=== PATIENT | male | born 1975 | race American Indian/Alaskan Native ===

== ENCOUNTER 2019-07-31 07:33 | Emergency (ER) | payer MEDICARE ==
[2019-07-31] MEDS ORDERED: ASPIRIN 325 MG TAB PO ONE (08:01)
[2019-07-31 08:32] LABS: Basophils % (Auto) 0.9 % (0.0-1.8); Eosinophils # (Auto) 0.1 K/mm3 (0.0-0.4); Eosinophils % (Auto) 2.2 % (0.0-4.3); Hematocrit 40.1 % (35.5-45.6); Hemoglobin 13.5 gm/dl (11.8-15.2); Lymphocytes # (Auto) 1.2 K/mm3 (1.2-5.4); Lymphocytes % (Auto) 26.8 % (13.4-35.0); Mean Corpuscular HGB Conc 34 % (32-34); Mean Corpuscular Volume 95 fl (84-94); Monocytes # (Auto) 0.4 K/mm3 (0.0-0.8); Platelet Count 163 K/mm3 (140-440); Red Blood Count 4.24 M/mm3 (3.65-5.03); Red Cell Distribution Width 15.2 % (13.2-15.2)
[2019-07-31 08:42] LABS: INR 1.12 (0.87-1.13)
[2019-07-31 08:43] LABS: Partial Thromboplastin Time 36.3 Sec. (24.2-36.6)
--- NOTE | 2019-07-31 08:44 | XRay Report ---
CHEST 1 VIEW INDICATION: Chest Pain. COMPARISON: None FINDINGS: Support devices: None. Heart: Moderate cardiomegaly. Lungs/Pleura: Mild central pulmonary venous congestion. The lungs are clear otherwise. No infiltrate, pneumothorax or pleural fluid is appreciated. Additional findings: None. IMPRESSION: Moderate cardiomegaly. Lungs clear. Signer Name: Chapincito Cortez Jr, MD Signed: 07/31/2019 8:40 AM Workstation Name: [id number]
[2019-07-31 08:52] LABS: BUN/Creatinine Ratio 14; Blood Urea Nitrogen 18 mg/dL (9-20); Calcium 8.9 mg/dL (8.4-10.2); Hemolysis Index 14
[2019-07-31] MEDS ORDERED: FUROSEMIDE 40 MG/4 ML INJ IV ONE (08:55)
--- NOTE | 2019-07-31 09:20 | Emergency Department Report ---
<MANNY HAYES - Last Filed: 08/03/19 17:41> ED Shortness of Breath HPI - General Chief Complaint: Dyspnea/Respdistress Stated Complaint: SOB/CHF Time Seen by Provider: 07/31/19 08:41 Source: patient Mode of arrival: Ambulatory Limitations: No Limitations - History of Present Illness Initial Comments: Patient is a 44-year-old male who presents emergency room with complaints of shortness of breath that began 2 days ago. Patient states it is worse with lying flat and worse with exertion and that he is having to sit up in a recliner to sleep. Patient states that he just traveled here from [place] and forgot to pack his medications so he has not had any of his medications in 2 days. he states that he has a past medical is CHF and states that he believes his EF is less than 15%. He states that 3 weeks ago he had a [place] in [place] and had 2 stents placed. He denies any leg swelling, chest pain, fever, any other sympto ms. Patient has a past medical history of hypertension he has an allergy to TL inhibitor. Patient is a smoker, drinker, denies drug use. - Related Data Allergies Allergy/AdvReac Type Severity Reaction Status Date / Time TL Inhibitors AdvReac Angioedema Verified 07/31/19 07:48 ED Review of Systems Comment: All other systems reviewed and negative ED Past Medical Hx - Past Medical History Hx Hypertension: Yes Hx Congestive Heart Failure: Yes - Surgical History Additional Surgical History: tonsilectomy - Social History Smoking Status: Current Every Day Smoker Substance Use Type: Alcohol ED Physical Exam - General Limitations: No Limitations General appearance: alert, in no apparent distress - Head Head exam: Present: atraumatic, normocephalic - Eye Eye exam: Present: normal appearance - ENT ENT exam: Present: mucous membranes moist - Respiratory Respiratory exam: Present: rales (mild bases). Absent: respiratory distress, wheezes, rhonchi, stridor, chest wall tenderness, accessory muscle use, decreased breath sounds, prolonged expiratory - Cardiovascular Cardiovascular Exam: Present: regular rate, normal rhythm, normal heart sounds. Absent: systolic murmur, diastolic murmur, rubs, gallop - Extremities Exam Extremities exam: Absent: pedal edema - Neurological Exam Neurological exam: Present: alert, oriented X3 - Psychiatric Psychiatric exam: Present: normal affect, normal mood - Skin Skin exam: Present: warm, dry, intact ED Medical Decision Making - Lab Data Result diagrams: 07/31/19 08:16 07/31/19 08:16 Lab Results 07/31/19 07/31/19 07/31/19 Range/Units 08:06 08:16 08:16 WBC 4.5 (4.5-11.0) K/mm3 RBC 4.24 (3.65-5.03) M/mm3 Hgb 13.5 (11.8-15.2) gm/dl Hct 40.1 (35.5-45.6) % MCV 95 H (84-94) fl MCH 32 (28-32) pg MCHC 34 (32-34) % RDW 15.2 (13.2-15.2) % Plt Count 163 (140-440) K/mm3 Lymph % (Auto) 26.8 (13.4-35.0) % [place] % (Auto) 8.0 H (0.0-7.3) % Eos % (Auto) 2.2 (0.0-4.3) % Baso % (Auto) 0.9 (0.0-1.8) % Lymph # 1.2 (1.2-5.4) K/mm3 [place] # 0.4 (0.0-0.8) K/mm3 Eos # 0.1 (0.0-0.4) K/mm3 Baso # 0.0 (0.0-0.1) K/mm3 Seg Neutrophils % 62.1 (40.0-70.0) % Seg Neutrophils # 2.8 (1.8-7.7) K/mm3 PT (12.2-14.9) Sec. INR (0.87-1.13) APTT (24.2-36.6) Sec. D-Dimer 439.50 H (0-234) ng/mlDDU Sodium 138 (137-145) mmol/L Potassium 4.6 (3.6-5.0) mmol/L Chloride 108.2 H (98-107) mmol/L Carbon Dioxide 20 L (22-30) mmol/L Anion Gap 14 mmol/L BUN 18 (9-20) mg/dL Creatinine 1.3 (0.8-1.5) mg/dL Estimated GFR > 60 ml/min BUN/Creatinine Ratio 14 % Glucose 108 H (75-100) mg/dL Calcium 8.9 (8.4-10.2) mg/dL Troponin T < 0.010 (0.00-0.029) ng/mL NT-Pro-B Natriuret Pep (0-450) pg/mL 07/31/19 07/31/19 07/31/19 Range/Units 08:16 08:16 11:45 WBC (4.5-11.0) K/mm3 RBC (3.65-5.03) M/mm3 Hgb (11.8-15.2) gm/dl Hct (35.5-45.6) % MCV (84-94) fl MCH (28-32) pg MCHC (32-34) % RDW (13.2-15.2) % Plt Count (140-440) K/mm3 Lymph % (Auto) (13.4-35.0) % [place] % (Auto) (0.0-7.3) % Eos % (Auto) (0.0-4.3) % Baso % (Auto) (0.0-1.8) % Lymph # (1.2-5.4) K/mm3 [place] # (0.0-0.8) K/mm3 Eos # (0.0-0.4) K/mm3 Baso # (0.0-0.1) K/mm3 Seg Neutrophils % (40.0-70.0) % Seg Neutrophils # (1.8-7.7) K/mm3 PT 14.3 (12.2-14.9) Sec. INR 1.12 (0.87-1.13) APTT 36.3 (24.2-36.6) Sec. D-Dimer (0-234) ng/mlDDU Sodium (137-145) mmol/L Potassium (3.6-5.0) mmol/L Chloride (98-107) mmol/L Carbon Dioxide (22-30) mmol/L Anion Gap mmol/L BUN (9-20) mg/dL Creatinine (0.8-1.5) mg/dL Estimated GFR ml/min BUN/Creatinine Ratio % Glucose (75-100) mg/dL Calcium (8.4-10.2) mg/dL Troponin T < 0.010 (0.00-0.029) ng/mL NT-Pro-B Natriuret Pep 4035 H (0-450) pg/mL - EKG Data EKG shows normal: sinus rhythm Rate: normal - EKG Data 07/31/19 09:48 PVCs LAD LVH no STEMI per Dr. Figueroa - Radiology Data Radiology results: report reviewed CHEST 1 VIEW INDICATION: Chest Pain. COMPARISON: None FINDINGS: Support devices: None. Heart: Moderate cardiomegaly. Lungs/Pleura: Mild central pulmonary venous congestion. The lungs are clear otherwise. No infiltrate, pneumothorax or pleural fluid is appreciated. Additional findings: None. IMPRESSION: Moderate cardiomegaly. Lungs clear. Signer Name: Chapincito Cortez Jr, MD Signed: 07/31/2019 8:40 AM Workstation Name: [id number] Transcribed By: TTR Dictated By: CHAPINCITO CORTEZ JR, MD Electronically Authenticated By: CHAPINCITO CORTEZ JR, MD Signed Date/Time: 07/31/19839 DD/ 8 TD/TT: CTA CHEST WITH CONTRAST INDICATION : SOB, elevated d-dimer. TECHNIQUE: Axial imaging performed through the chest, with contrast bolus timing set to maximize opacification of the pulmonary arteries. Sagittal and coronal reformatted images. 3-plane MIP reformatted images were obtained. All CT scans at this location are performed using CT dose reduction for ALARA by means of automated exposure control. 100 mL of intravenous contrast administered. COMPARISON: None FINDINGS: Bolus: Contrast bolus timing is adequate. PTE: No filling defect is present to suggest PTE. Mediastinum: Moderate to severe cardiomegaly. No pericardial effusion. The aorta, thyroid gland, tracheobronchial tree and esophagus are unremarkable. No pathologic mediastinal adenopathy. Lungs: The lungs are clear. No significant parenchymal disease. No pleural effusion or pneumothorax. Bones: No significant abnormality. Upper abdomen: Limited imaging of the upper abdomen shows nothing acute. IMPRESSION: No pulmonary embolus is identified. Moderate to severe cardiomegaly. Lungs clear. Signer Name: Chapincito Cortez Jr, MD Signed: 07/31/2019 1:57 PM Workstation Name: [id number] Transcribed By: TTR Dictated By: CHAPINCITO CORTEZ JR, MD Electronically Authenticated By: CHAPINCITO CORTEZ JR, MD Signed Date/Time: 07/31/19 1416 DD/ 1417 TD/TT: - Medical Decision Making Patient is a 44-year-old male who presents emergency room with complaints of shortness of breath that began 2 days ago. Patient states it is worse with lying flat and worse with exertion and that he is having to sit up in a recliner to sleep. Patient states that he just traveled here from [place] and forgot to pack his medications so he has not had any of his medications in 2 days. he states that he has a past medical is CHF and states that he believes his EF is less than 15%. He states that 3 weeks ago he had a [place] in [place] and had 2 stents placed. He denies any leg swelling, chest pain, fever, any other symptoms. Patient has a past medical history of hypertension he has an allergy to TL inhibitor. Patient is a smoker, drinker, denies drug use. initial vitals with tachypnea and mildly elevated BP. EKG with PVCs, LAD, LVH, no STEMI per Dr. Figueroa. on exam: mild rales at the bilateral bases. on labs d-dimer is elevated, BNP is 4035. pt given lasix and breath sounds improved, pt states he is feeling much better. CXR: Mild central pulmonary venous congestion. The lungs are clear otherwise. No infiltrate, pneumothorax or pleural fluid is appreciated. CTA chest: No pulmonary embolus is identified. Moderate to severe cardiomegaly. Lungs clear. pt states that someone is bringing his medication from [place] today so he does not need refills of his meds. discussed case with Dr. Figueroa who states that pt can be discharged home and follow up with his PCP. advised pt to Please take your medications as your prescribed by your primary care doctor. eat a low sodium diet, watch your fluid intake. please follow-up with your primary care doctor and your butcherette in the next 2-3 days. Return to the emergency room immediately for any new or worsening symptoms. - Differential Diagnosis CHF, PE, asthma, COPD, ACS, PTX ED Disposition Clinical Impression: CHF exacerbation Qualifiers: Heart failure type: unspecified Qualified Code(s): I50.9 - Heart failure, unsp ecified Disposition: - TO HOME OR SELFCARE Is pt being admited?: No Does the pt Need Aspirin: No Condition: Stable Instructions: Heart Failure (ED) Additional Instructions: Please take your medications as your prescribed by her primary care doctor. eat a low sodium diet, watch your fluid intake. please follow-up with your primary care doctor and your butcherette in the next 2-3 days. Return to the emergency room immediately for any new or worsening symptoms. Referrals: ALMA SORIA MD [Primary Care Provider] - 2-3 Days Time of Disposition: 15:52 Print Language: ARABIC <MARIAA FIGUEROA P - Last Filed: 08/15/19 03:06> ED Review of Systems ROS: Stated complaint: SOB/CHF Other details as noted in HPI ED Course Vital Signs 07/31/19 07/31/19 07/31/19 07:59 08:30 08:38 Temperature 98.1 F Pulse Rate 91 H 92 H Respiratory 28 H 24 Rate Blood Pressure 137/102 Blood Pressure [Left] O2 Sat by Pulse 97 98 Oximetry 07/31/19 07/31/19 07/31/19 08:41 08:46 09:00 Temperature Pulse Rate 86 88 86 Respiratory 28 H 41 H 19 Rate Blood Pressure 139/97 139/97 Blood Pressure 139/87 [Left] O2 Sat by Pulse 100 98 99 Oximetry 07/31/19 07/31/19 07/31/19 09:16 09:30 09:48 Temperature Pulse Rate 84 85 92 H Respiratory 26 H 36 H 22 Rate Blood Pressure 134/105 142/103 142/103 Blood Pressure [Left] O2 Sat by Pulse 98 95 97 Oximetry 07/31/19 07/31/19 07/31/19 10:00 10:16 10:30 Temperature Pulse Rate 84 73 72 Respiratory 37 H 23 28 H Rate Blood Pressure 158/109 142/103 141/99 Blood Pressure [Left] O2 Sat by Pulse 98 97 88 Oximetry 07/31/19 07/31/19 07/31/19 10:46 11:00 11:16 Temperature Pulse Rate 73 82 75 Respiratory 17 26 H 14 Rate Blood Pressure 141/99 133/100 133/100 Blood Pressure [Left] O2 Sat by Pulse 94 93 97 Oximetry 07/31/19 07/31/19 07/31/19 11:30 11:46 12:00 Temperature Pulse Rate 77 81 78 Respiratory 26 H 24 19 Rate Blood Pressure 129/91 129/91 138/108 Blood Pressure [Left] O2 Sat by Pulse 95 98 96 Oximetry 07/31/19 07/31/19 07/31/19 12:16 12:30 12:46 Temperature Pulse Rate 70 84 70 Respiratory 35 H 22 21 Rate Blood Pressure 138/108 130/95 138/108 Blood Pressure [Left] O2 Sat by Pulse 97 95 98 Oximetry 07/31/19 07/31/19 07/31/19 13:00 13:22 13:30 Temperature Pulse Rate 69 82 78 Respiratory 20 23 25 H Rate Blood Pressure 130/95 130/95 140/106 Blood Pressure [Left] O2 Sat by Pulse 91 98 98 Oximetry 07/31/19 07/31/19 07/31/19 13:46 14:00 14:16 Temperature Pulse Rate 72 75 77 Respiratory 21 16 24 Rate Blood Pressure 130/95 142/106 142/106 Blood Pressure [Left] O2 Sat by Pulse 99 95 98 Oximetry 07/31/19 07/31/19 07/31/19 14:30 14:46 15:00 Temperature Pulse Rate 85 78 80 Respiratory 28 H 15 26 H Rate Blood Pressure 145/107 142/106 144/105 Blood Pressure [Left] O2 Sat by Pulse 98 97 92 Oximetry 07/31/19 07/31/19 07/31/19 15:16 15:30 15:46 Temperature Pulse Rate 69 77 70 Respiratory 24 24 19 Rate Blood Pressure 145/107 134/96 134/96 Blood Pressure [Left] O2 Sat by Pulse 100 92 98 Oximetry 07/31/19 07/31/19 16:00 16:16 Temperature Pulse Rate 84 74 Respiratory 20 20 Rate Blood Pressure 143/107 143/107 Blood Pressure [Left] O2 Sat by Pulse 97 95 Oximetry ED Medical Decision Making - Lab Data Result diagrams: 07/31/19 08:16 07/31/19 08:16 - Medical Decision Making Attestation: Available for consultation Critical care attestation.: If time is entered above; I have spent that time in minutes in the direct care of this critically ill patient, excluding procedure time. ED Disposition Is pt being admited?: No
[2019-07-31] MEDS ORDERED: ONDANSETRON 4 MG/2 ML INJ IV ONE (10:34)
[2019-07-31] MEDS ORDERED: ONDANSETRON 4 MG/2 ML INJ ONE (12:43)
--- NOTE | 2019-07-31 14:02 | Cat Scan Report ---
CTA CHEST WITH CONTRAST INDICATION : SOB, elevated d-dimer. TECHNIQUE: Axial imaging performed through the chest, with contrast bolus timing set to maximize opa cification of the pulmonary arteries. Sagittal and coronal reformatted images. 3-plane MIP reformatte d images were obtained. All CT scans at this location are performed using CT dose reduction for ALAR A by means of automated exposure control. 100 mL of intravenous contrast administered. COMPARISON: None FINDINGS: Bolus: Contrast bolus timing is adequate. PTE: No filling defect is present to suggest PTE. Mediastinum: Moderate to severe cardiomegaly. No pericardial effusion. The aorta, thyroid gland, tra cheobronchial tree and esophagus are unremarkable. No pathologic mediastinal adenopathy. Lungs: The lungs are clear. No significant parenchymal disease. No pleural effusion or pneumothorax. Bones: No significant abnormality. Upper abdomen: Limited imaging of the upper abdomen shows nothing acute. IMPRESSION: No pulmonary embolus is identified. Moderate to severe cardiomegaly. Lungs clear. Signer Name: Chapincito Cortez Jr, MD Signed: 07/31/2019 1:57 PM Workstation Name: [id number]
[2019-07-31 16:25] VITALS: BP 143/107
== END 2019-07-31 16:25 | disposition home or self-care (01) ==
LOC: ED 07:33
DX: I11.0 Hypertensive heart disease with heart failure (principal); I50.9 Heart failure, unspecified; F17.200 Nicotine dependence, unspecified, uncomplicated; Z90.89 Acquired absence of other organs
CPT/HCPCS: 36415; 71045; 71275; 80048; 83880; 84484; 85025; 85379; 85610; 85730; 93005; 93010; 96374; 96375; 99285; J1940; J2405; Q9967

== ENCOUNTER 2019-08-09 07:07 | Emergency (ER) | payer MEDICARE ==
[2019-08-09 08:21] LABS: Basophils # (Auto) 0.1 K/mm3 (0.0-0.1); Basophils % (Auto) 1.3 % (0.0-1.8); Eosinophils # (Auto) 0.1 K/mm3 (0.0-0.4); Eosinophils % (Auto) 1.8 % (0.0-4.3); Hematocrit 41.6 % (35.5-45.6); Hemoglobin 14.2 gm/dl (11.8-15.2); Lymphocytes # (Auto) 0.9 K/mm3 (1.2-5.4); Lymphocytes % (Auto) 19.4 % (13.4-35.0); Mean Corpuscular HGB Conc 34 % (32-34); Mean Corpuscular Volume 93 fl (84-94); Monocytes # (Auto) 0.3 K/mm3 (0.0-0.8); Monocytes % (Auto) 7.8 % (0.0-7.3); Platelet Count 175 K/mm3 (140-440); Red Blood Count 4.49 M/mm3 (3.65-5.03); Red Cell Distribution Width 15.1 % (13.2-15.2)
--- NOTE | 2019-08-09 08:25 | Emergency Department Report ---
ED General Adult HPI - General Chief complaint: Dyspnea/Respdistress Stated complaint: SOB/COLTON Time Seen by Provider: 08/09/19 08:10 Source: patient Mode of arrival: Wheelchair Limitations: No Limitations - History of Present Illness Initial comments: 44 year old male with a PMH of CHF, HIV, and HTN presents to Ed cc of sob that started at 3am this morning while at home pt stated he had a little bit of intermittent and dry nonproductive cough and but does not exhibit any chest pain Pt states he takes his medications daily and is compliant on his medications. He denies fever,chestpain,difficulty breathing, hx of asthma or COPD he states that he just recently moved here from [place] and is currently looking for primary care physician - Related Data Previous Rx's Medication Instructions Recorded Last Taken Type ALBUTEROL Inhaler (OR & NICU) 2 puff IH QID PRN #8.5 gram 08/09/19 Unknown Rx [ProAir HFA Inhaler] Allergies Allergy/AdvReac Type Severity Reaction Status Date / Time TL Inhibitors AdvReac Angioedema Verified 07/31/19 07:48 ED Review of Systems ROS: Stated complaint: SOB/COLTON Other details as noted in HPI Comment: All other systems reviewed and negative ED Past Medical Hx - Past Medical History Previous Medical History?: Yes Hx Hypertension: Yes Hx Congestive Heart Failure: Yes Hx HIV: Yes - Surgical History Past Surgical History?: Yes Additional Surgical History: tonsilectomy - Social History Smoking Status: Current Every Day Smoker Substance Use Type: None - Medications Home Medications: Home Medications Medication Instructions Recorded Confirmed Last Taken Type ALBUTEROL Inhaler (OR & NICU) 2 puff IH QID PRN #8.5 gram 08/09/19 Unknown Rx [ProAir HFA Inhaler] ED Physical Exam - General Limitations: No Limitations General appearance: alert, in no apparent distress - Head Head exam: Present: atraumatic, normocephalic - Eye Eye exam: Present: normal appearance - ENT ENT exam: Present: mucous membranes moist - Neck Neck exam: Present: normal inspection - Respiratory Respiratory exam: Present: normal lung sounds bilaterally. Absent: respiratory distress - Cardiovascular Cardiovascular Exam: Present: regular rate, normal rhythm. Absent: systolic murmur, diastolic murmur, rubs, gallop - GI/Abdominal GI/Abdominal exam: Present: soft, normal bowel sounds - Rectal Rectal exam: Present: deferred - Extremities Exam Extremities exam: Present: normal inspection - Back Exam Back exam: Present: normal inspection - Neurological Exam Neurological exam: Present: alert, oriented X3 - Psychiatric Psychiatric exam: Present: normal affect, normal mood - Skin Skin exam: Present: warm, dry, intact, normal color. Absent: rash ED Course Vital Signs 08/09/19 08/09/19 08/09/19 07:29 08:06 10:22 Pulse Rate 84 78 74 Respiratory 20 18 20 Rate Blood Pressure 138/99 Blood Pressure 133/99 134/86 [Left] O2 Sat by Pulse 98 100 98 Oximetry - Reevaluation(s) Reevaluation #1: 08/09/19 08:45 Pt is satting at 98 percent Room air, stable no resopiratory distress Resp team called to admimnister Duoned labs and Xray pending ED Medical Decision Making - Lab Data Result diagrams: 08/09/19 08:06 08/09/19 08:06 Laboratory Last Values WBC 4.4 K/mm3 (4.5-11.0) L 08/09/19 08:06 RBC 4.49 M/mm3 (3.65-5.03) 08/09/19 08:06 Hgb 14.2 gm/dl (11.8-15.2) 08/09/19 08:06 Hct 41.6 % (35.5-45.6) 08/09/19 08:06 MCV 93 fl (84-94) 08/09/19 08:06 MCH 32 pg (28-32) 08/09/19 08:06 MCHC 34 % (32-34) 08/09/19 08:06 RDW 15.1 % (13.2-15.2) 08/09/19 08:06 Plt Count 175 K/mm3 (140-440) 08/09/19 08:06 Lymph % (Auto) 19.4 % (13.4-35.0) 08/09/19 08:06 [place] % (Auto) 7.8 % (0.0-7.3) H 08/09/19 08:06 Eos % (Auto) 1.8 % (0.0-4.3) 08/09/19 08:06 Baso % (Auto) 1.3 % (0.0-1.8) 08/09/19 08:06 Lymph # 0.9 K/mm3 (1.2-5.4) L 08/09/19 08:06 [place] # 0.3 K/mm3 (0.0-0.8) 08/09/19 08:06 Eos # 0.1 K/mm3 (0.0-0.4) 08/09/19 08:06 Baso # 0.1 K/mm3 (0.0-0.1) 08/09/19 08:06 Seg Neutrophils % 69.7 % (40.0-70.0) 08/09/19 08:06 Seg Neutrophils # 3.1 K/mm3 (1.8-7.7) 08/09/19 08:06 PT 15.3 Sec. (12.2-14.9) H 08/09/19 08:06 INR 1.22 (0.87-1.13) H 08/09/19 08:06 APTT 38.3 Sec. (24.2-36.6) H 08/09/19 08:06 D-Dimer 140.91 ng/mlDDU (0-234) 08/09/19 08:06 Sodium 138 mmol/L (137-145) 08/09/19 08:06 Potassium 3.7 mmol/L (3.6-5.0) 08/09/19 08:06 Chloride 102.1 mmol/L (98-107) 08/09/19 08:06 Carbon Dioxide 19 mmol/L (22-30) L 08/09/19 08:06 Anion Gap 21 mmol/L 08/09/19 08:06 BUN 19 mg/dL (9-20) 08/09/19 08:06 Creatinine 1.1 mg/dL (0.8-1.5) 08/09/19 08:06 Estimated GFR > 60 ml/min 08/09/19 08:06 BUN/Creatinine Ratio 17 % 08/09/19 08:06 Glucose 101 mg/dL (75-100) H 08/09/19 08:06 Calcium 8.8 mg/dL (8.4-10.2) 08/09/19 08:06 Total Bilirubin 0.90 mg/dL (0.1-1.2) 08/09/19 08:06 AST 26 units/L (5-40) 08/09/19 08:06 ALT 17 units/L (7-56) 08/09/19 08:06 Alkaline Phosphatase 75 units/L (35-129) 08/09/19 08:06 Troponin T < 0.010 ng/mL (0.00-0.029) 08/09/19 08:06 Total Protein 8.4 g/dL (6.3-8.2) H 08/09/19 08:06 Albumin 4.3 g/dL (3.9-5) 08/09/19 08:06 Albumin/Globulin Ratio 1.0 % 08/09/19 08:06 - EKG Data EKG shows normal: sinus rhythm Rate: normal - EKG Data Interpretation: other (ectopic temperature rhythm, borderline prolonged ND interval from referral list show enlargement) - Radiology Data Radiology results: report reviewed, image reviewed Fluoro Time In Minutes: CHEST 2 VIEWS INDICATION / CLINICAL INFORMATION: Shortness of breath. COMPARISON: Chest x-ray and chest CT on 07/31/2019. F INDINGS: SUPPORT DEVICES: None. HEART / MEDIASTINUM: Stable moderate cardiomegaly. LUNGS / PLEURA: No significant pulmonary or pleural abnormality. No pneumothorax. ADDITIONAL FINDINGS: No significant additional findings. IMPRESSION: 1. No acute findings. Signer Name: Adalberto Avila MD Signed: 019 8:40 AM Workstation Name: [id number] Transcribed By: MELISSA Dictated By: Adalberto Avila MD Electronically Authenticated By: Adalberto Avila MD Signed Date/Time: 08/09/19 0840 - Medical Decision Making 44-year-old male presents with shortness of breat most likely secondary to anxiety panic attack. All labs are within normal limits, chest x-ray shows no acute findings. D-dimer was negative. Coags were slightly elevated due to patient taken blood nerves. 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 Referrals were given to patient. Patient is in no respiratory distress at this time. Patient understands all instructions and will follow up Critical care attestation.: If time is entered above; I have spent that time in minutes in the direct care of this critically ill patient, excluding procedure time. ED Disposition Clinical Impression: SOB (shortness of breath) Disposition: DC-01 TO HOME OR SELFCARE Is pt being admited?: No Does the pt Need Aspirin: No Condition: Stable Instructions: Dyspnea (ED) Additional Instructions: Please follow up with your pcp as well as cardiology Continue to take medication as prescribed. Return to Ed if any worsening symptoms Prescriptions: ALBUTEROL Inhaler (OR & NICU) [ProAir HFA Inhaler] 2 puff IH QID PRN #8.5 gram PRN Reason: Shortness Of Breath Referrals: [facility] [Provider Group] - 3-5 Days ZEUS VEGA MD [Staff Physician] - 3-5 Days [facility] [Outside] - 3-5 Days [facility] [Outside] - 3-5 Days Forms: Accompanied Note, Work/School Release Form(ED) Time of Disposition: 09:43
[2019-08-09] MEDS ORDERED: IPRATROPIUM/ALBUTEROL SULFATE 3 ML AMPUL.NEB IH ONE (08:32)
[2019-08-09] MEDS ORDERED: guaiFENesin 100 MG/5 ML ORAL LIQD PO ONE (08:32)
[2019-08-09 08:45] LABS: Alanine Aminotransferase 17 units/L (7-56); Albumin 4.3 g/dL (3.9-5); BUN/Creatinine Ratio 17; Blood Urea Nitrogen 19 mg/dL (9-20); Calcium 8.8 mg/dL (8.4-10.2); Hemolysis Index 8
--- NOTE | 2019-08-09 08:45 | XRay Report ---
CHEST 2 VIEWS INDICATION / CLINICAL INFORMATION: Shortness of breath. COMPARISON: Chest x-ray and chest CT on 07/31/2019. FINDINGS: SUPPORT DEVICES: None. HEART / MEDIASTINUM: Stable moderate cardiomegaly. LUNGS / PLEURA: No significant pulmonary or pleural abnormality. No pneumothorax. ADDITIONAL FINDINGS: No significant additional findings. IMPRESSION: 1. No acute findings. Signer Name: Adalberto Avila MD Signed: 08/09/2019 8:40 AM Workstation Name: [id number]
[2019-08-09 09:18] LABS: INR 1.22 (0.87-1.13)
[2019-08-09 09:19] LABS: Partial Thromboplastin Time 38.3 Sec. (24.2-36.6)
[2019-08-09 10:44] VITALS: BP 134/86
== END 2019-08-09 10:39 | disposition home or self-care (01) ==
LOC: ED 07:07
DX: R06.02 Shortness of breath (principal); I11.0 Hypertensive heart disease with heart failure; I50.9 Heart failure, unspecified; F17.200 Nicotine dependence, unspecified, uncomplicated; Z21 Asymptomatic human immunodeficiency virus [HIV] infection status; Z88.8 Allergy status to other drugs, medicaments and biological substances; Z90.89 Acquired absence of other organs; Z79.899 Other long term (current) drug therapy
CPT/HCPCS: 36415; 71046; 80053; 84484; 85025; 85379; 85610; 85730; 93005; 93010; 99285

== ENCOUNTER 2019-09-04 05:49 | Observation (INO) | payer MEDICARE ==
[2019-09-04] MEDS ORDERED: ASPIRIN 325 MG TAB PO ONE (06:03)
[2019-09-04] MEDS ORDERED: ACETAMINOPHEN 325 MG TAB PO ONE (06:21)
[2019-09-04] MEDS ORDERED: FAMOTIDINE 20 MG/2 ML INJ IV ONE (06:21)
[2019-09-04] MEDS ORDERED: NITROGLYCERIN 0.4 MG TAB SUBL SL PRN (06:21)
[2019-09-04] MEDS ORDERED: ALBUTEROL 2.5 MG/3 ML NEBU IH ONE ×2 (06:24→08:26)
--- NOTE | 2019-09-04 06:25 | Emergency Department Report ---
ED General Adult HPI - General Chief complaint: Chest Pain Stated complaint: CP/COLTON Time Seen by Provider: 09/04/19 06:07 Source: patient, EMS ( EMS documentation not available at time of chart dictation ), RN notes reviewed, old records reviewed Mode of arrival: Stretcher Limitations: No Limitations - History of Present Illness Initial comments: The patient is a 44-year-old male. The patient does not known to this provider previously. His past medical history includes HIV, does not know CD4 count or viral load. Not currently on antiviral therapy. He reports that he also has a history of heart disease with stents. He reports that he had one or 2 stents placed 6 weeks ago at [facility]. He does not know the nature of his stents does not have his card for stents. He reports that he does not take aspirin or Plavix. He reports that he is taking brilinta He may also have a history of congestive heart failure but he does not know his ejection fraction. He smokes tobacco and occasionally marijuana. 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 The patient presents to the ER with a complaint of cough, shortness of breath, chest wall tightness, and a feeling "like my lungs are going to explode." The symptoms started at 11:00 last night. It is now 6:45 in the morning. Chest wall pain is constant since 11:00 and does not radiate to the back, arms or neck. There is no vomiting or diaphoresis. The patient endorses shortness of breath. He endorses orthopnea. He denies leg pain and leg swelling. He endorses a new [address] trip on a bus to [place]. This was in the past week and a half. This is the patient's third visit to this department in the past month and a half. Previously while here, had a CT scan of the chest which was negative for pulmonary embolism or acute findings. Is also had multiple negative troponins, and has chronically abnormal EKG. -: Sudden, hour(s) Location: chest Radiation: non-radiation Severity scale (0 -10): 6 Consistency: constant Improves with: rest Worsens with: other (see hpi) - Related Data Previous Rx's Medication Instructions Recorded Last Taken Type ALBUTEROL Inhaler (OR & NICU) 2 puff IH QID PRN #8.5 gram 08/09/19 Unknown Rx [ProAir HFA Inhaler] Allergies Allergy/AdvReac Type Severity Reaction Status Date / Time TL Inhibitors AdvReac Angioedema Verified 07/31/19 07:48 ED Review of Systems ROS: Stated complaint: CP/COLTON Other details as noted in HPI Constitutional: denies: fever Eyes: denies: eye discharge ENT: congestion Respiratory: cough, shortness of breath Cardiovascular: chest pain, orthopnea Gastrointestinal: denies: abdominal pain, nausea, vomiting Genitourinary: denies: dysuria Musculoskeletal: denies: back pain Skin: denies: lesions Neurological: weakness Hematological/Lymphatic: denies: easy bleeding ED Past Medical Hx - Past Medical History Previous Medical History?: Yes Hx Hypertension: Yes Hx Congestive Heart Failure: Yes Hx HIV: Yes - Surgical History Past Surgical History?: Yes Additional Surgical History: tonsilectomy - Social History Smoking Status: Never Smoker - Medications Home Medications: Home Medications Medication Instructions Recorded Confirmed Last Taken Type ALBUTEROL Inhaler (OR & NICU) 2 puff IH QID PRN #8.5 gram 08/09/19 09/04/19 Unknown Rx [ProAir HFA Inhaler] ED Physical Exam - General Limitations: No Limitations General appearance: alert, in no apparent distress - Head Head exam: Present: atraumatic, normocephalic - Eye Eye exam: Present: normal appearance, EOMI. Absent: nystagmus - ENT ENT exam: Present: normal exam, normal orophraynx, mucous membranes moist, normal external ear exam - Neck Neck exam: Present: normal inspection, full ROM. Absent: tenderness, meningismus - Respiratory Respiratory exam: Present: decreased breath sounds, other (tachypnea appreciated). Absent: respiratory distress, wheezes, rales, rhonchi, stridor - Cardiovascular Cardiovascular Exam: Present: regular rate, normal rhythm, normal heart sounds, JVD. Absent: bradycardia, tachycardia, irregular rhythm, systolic murmur, diastolic murmur, rubs, gallop - GI/Abdominal GI/Abdominal exam: Present: soft. Absent: distended, tenderness, guarding, rebound, rigid, pulsatile mass - Rectal Rectal exam: Present: deferred - Extremities Exam Extremities exam: Present: normal inspection, full ROM, other (2+ pulses noted in the bilateral upper and lower extremities. There is no palpable cord. negative Homans sign. Muscular compartments are soft. The pelvis is stable.). Absent: pedal edema, calf tenderness - Back Exam Back exam: Present: normal inspection, full ROM. Absent: tenderness, CVA tenderness (R), CVA tenderness (L), paraspinal tenderness, vertebral tenderness - Neurological Exam Neurological exam: Present: alert, other (there is no facial droop. The tongue is midline. The extraocular movements are intact bilaterally. Speaking in full sentences. Minimal elevation of the base of the tongue. There is 5 out of 5 strength in the bilateral upper and lower extremities, and sensation is intact to light touch in the bilateral upper and lower extremities. Appropriate insight.) - Psychiatric Psychiatric exam: Present: anxious - Skin Skin exam: Present: warm, dry, intact, normal color. Absent: rash ED Course Vital Signs 09/04/19 09/04/19 09/04/19 05:54 05:57 06:00 Temperature 98.1 F Pulse Rate 83 Pulse Rate [ Anterior Bilateral Throughout] Respiratory 19 Rate Respiratory Rate [Anterior Bilateral Throughout] Blood Pressure 137/112 Blood Pressure [Left] O2 Sat by Pulse 100 100 Oximetry 09/04/19 09/04/19 09/04/19 06:03 06:16 06:30 Temperature Pulse Rate 80 84 Pulse Rate [ Anterior Bilateral Throughout] Respiratory 20 22 23 Rate Respiratory Rate [Anterior Bilateral Throughout] Blood Pressure 144/110 138/107 Blood Pressure [Left] O2 Sat by Pulse 100 100 97 Oximetry 09/04/19 09/04/19 09/04/19 06:46 08:37 08:56 Temperature Pulse Rate 80 81 Pulse Rate [ 86 Anterior Bilateral Throughout] Respiratory 27 H 16 Rate Respiratory 18 Rate [Anterior Bilateral Throughout] Blood Pressure 138/107 Blood Pressure 130/97 [Left] O2 Sat by Pulse 100 95 Oximetry 09/04/19 12:25 Temperature Pulse Rate 67 Pulse Rate [ Anterior Bilateral Throughout] Respiratory 16 Rate Respiratory Rate [Anterior Bilateral Throughout] Blood Pressure Blood Pressure 135/103 [Left] O2 Sat by Pulse 96 Oximetry - Reevaluation(s) Reevaluation #1: 09/04/19 06:47 Differential diagnosis, including not limited to: Bronchitis, pneumonia, acute coronary syndrome, costochondritis, pulmonary embolism Assessment and plan: 44-year-old gentleman with reported stents, currently on brilinta, history of congestive heart failure, currently on Lasix 80 mg twice daily, presenting with cough, shortness of breath, chest tightness. He is found to be tachypneic with JVD. Breath sounds are clear. Chest x-ray unremarkable. Prior workup is reviewed and appreciated. Given history of HIV, recent trip to [place] in a bus for 12 hours, articulated symptoms, d-dimer assents to assist in risk stratification for pulmonary embolism. Clinically suspect bronchitis versus mild CHF exacerbation. A request has been made to obtain his medical records from [facility]. Screening laboratory studies are sent. Once his initial diagnostics have resulted, we will discuss with cardiology on- call. Reevaluation #2: 09/04/19 09:29 CT scan chest shows congestive heart failure, consistent with the patient's presentation. Repeat EKG unchanged from prior. We have received the patient's old medical records. Apparently, patient is status post STEMI 2018, with stent deployment to the RCA, cardiomyopathy EF of 10%. He also has a history of cocaine abuse, and polysubstance use. The transmitted documentation does not clarify whether or not he had a drug- eluting stent or bare-metal stent. Upon review of old cardiology records, he is supposed to be on dual antiplatelet therapy, in addition to brilinta With this and closed past medical history, I find the patient to be moderate risk for major adverse cardiac event as per the heart score ( 4), and he is clearly demonstrated unreliability to follow-up as an outpatient. He is also noncompliance with his medications. KARSTEN Risk Score for STEMI 4, as per md calc online calculator Aspirin will be added to his regimen. 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 Hospital physician, Dr. Merlyn Alanis to admit ED Medical Decision Making - Lab Data Result diagrams: 09/04/19 06:11 09/04/19 06:11 Vital Signs 09/04/19 09/04/19 05:57 06:03 Temperature 98.1 F Respiratory 20 Rate O2 Sat by Pulse 100 Oximetry Lab Results 09/04/19 09/04/19 09/04/19 Range/Units 06:11 06:11 06:24 WBC 3.5 L (4.5-11.0) K/mm3 RBC 4.23 (3.65-5.03) M/mm3 Hgb 13.5 (11.8-15.2) gm/dl Hct 39.8 (35.5-45.6) % MCV 94 (84-94) fl MCH 32 (28-32) pg MCHC 34 (32-34) % RDW 15.4 H (13.2-15.2) % Plt Count 146 (140-440) K/mm3 Lymph % (Auto) 28.6 (13.4-35.0) % Crosby % (Auto) 7.1 (0.0-7.3) % Eos % (Auto) 2.2 (0.0-4.3) % Baso % (Auto) 1.3 (0.0-1.8) % Lymph # 1.0 L (1.2-5.4) K/mm3 Crosby # 0.3 (0.0-0.8) K/mm3 Eos # 0.1 (0.0-0.4) K/mm3 Baso # 0.0 (0.0-0.1) K/mm3 Seg Neutrophils % 60.8 (40.0-70.0) % Seg Neutrophils # 2.2 (1.8-7.7) K/mm3 PT 15.1 H (12.2-14.9) Sec. INR 1.17 H (0.87-1.13) APTT 37.8 H (24.2-36.6) Sec. D-Dimer 284.23 H (0-234) ng/mlDDU Sodium 138 (137-145) mmol/L Potassium 3.6 (3.6-5.0) mmol/L Chloride 102.8 (98-107) mmol/L Carbon Dioxide 21 L (22-30) mmol/L Anion Gap 18 mmol/L BUN 19 (9-20) mg/dL Creatinine 1.2 (0.8-1.5) mg/dL Estimated GFR > 60 ml/min BUN/Creatinine Ratio 16 % Glucose 111 H (75-100) mg/dL Calcium 8.8 (8.4-10.2) mg/dL Magnesium (1.7-2.3) mg/dL Total Creatine Kinase (55-170) units/L Troponin T 0.017 (0.00-0.029) ng/mL NT-Pro-B Natriuret Pep (0-450) pg/mL 09/04/19 Range/Units 06:24 WBC (4.5-11.0) K/mm3 RBC (3.65-5.03) M/mm3 Hgb (11.8-15.2) gm/dl Hct (35.5-45.6) % MCV (84-94) fl MCH (28-32) pg MCHC (32-34) % RDW (13.2-15.2) % Plt Count (140-440) K/mm3 Lymph % (Auto) (13.4-35.0) % Crosby % (Auto) (0.0-7.3) % Eos % (Auto) (0.0-4.3) % Baso % (Auto) (0.0-1.8) % Lymph # (1.2-5.4) K/mm3 Crosby # (0.0-0.8) K/mm3 Eos # (0.0-0.4) K/mm3 Baso # (0.0-0.1) K/mm3 Seg Neutrophils % (40.0-70.0) % Seg Neutrophils # (1.8-7.7) K/mm3 PT (12.2-14.9) Sec. INR (0.87-1.13) APTT (24.2-36.6) Sec. D-Dimer (0-234) ng/mlDDU Sodium (137-145) mmol/L Potassium (3.6-5.0) mmol/L Chloride (98-107) mmol/L Carbon Dioxide (22-30) mmol/L Anion Gap mmol/L BUN (9-20) mg/dL Creatinine (0.8-1.5) mg/dL Estimated GFR ml/min BUN/Creatinine Ratio % Glucose (75-100) mg/dL Calcium (8.4-10.2) mg/dL Magnesium 1.90 (1.7-2.3) mg/dL Total Creatine Kinase 443 H (55-170) units/L Troponin T (0.00-0.029) ng/mL NT-Pro-B Natriuret Pep 5605 H (0-450) pg/mL - EKG Data -: EKG Interpreted by [place] EKG shows normal: sinus rhythm Rate: normal - EKG Data 09/04/19 06:51 The EKG today is unchanged from prior. The EKG shows a sinus rhythm, left axis deviation, borderline left anterior fascicular block, VA interval prolonged, QTC prolonged, interventricular conduction delay, nonspecific lateral T-wave abnormalities, there is borderline atrial enlargement, the EKG is abnormal, it is not consistent with a STEMI - Radiology Data Radiology results: report reviewed, image reviewed X-ray the chest is negative for acute disease. Large cardiac silhouette is noted. Critical Care Time: Yes Critical care time in (mins) excluding proc time.: 60 Critical care attestation.: If time is entered above; I have spent that time in minutes in the direct care of this critically ill patient, excluding procedure time. ED Disposition Clinical Impression: Acute CHF, Noncompliance, Acute chest pain Disposition: 09 OP ADMIT IP TO THIS HOSP Is pt being admited?: Yes Does the pt Need Aspirin: Yes Condition: Stable
--- NOTE | 2019-09-04 06:25 | XRay Report ---
CHEST 1 VIEW 09/04/2019 6:02 AM INDICATION / CLINICAL INFORMATION: Chest Pain. COMPARISON: 2 views of the chest from 08/09/2019. FINDINGS: SUPPORT DEVICES: None. HEART / MEDIASTINUM: Stable. LUNGS / PLEURA: No significant pulmonary or pleural abnormality. No pneumothorax. ADDITIONAL FINDINGS: No significant additional findings. IMPRESSION: 1. No acute abnormality of the chest. 2. Stable cardiomegaly. Signer Name: Prince Bianchi MD Signed: 09/04/2019 6:20 AM Workstation Name: [id number]
[2019-09-04 06:27] LABS: Basophils % (Auto) 1.3 % (0.0-1.8); Eosinophils # (Auto) 0.1 K/mm3 (0.0-0.4); Eosinophils % (Auto) 2.2 % (0.0-4.3); Hematocrit 39.8 % (35.5-45.6); Hemoglobin 13.5 gm/dl (11.8-15.2); Lymphocytes % (Auto) 28.6 % (13.4-35.0); Mean Corpuscular HGB Conc 34 % (32-34); Mean Corpuscular Volume 94 fl (84-94); Monocytes # (Auto) 0.3 K/mm3 (0.0-0.8); Monocytes % (Auto) 7.1 % (0.0-7.3); Platelet Count 146 K/mm3 (140-440); Red Blood Count 4.23 M/mm3 (3.65-5.03); Red Cell Distribution Width 15.4 % (13.2-15.2)
[2019-09-04 06:40] LABS: INR 1.17 (0.87-1.13)
[2019-09-04 06:41] LABS: Partial Thromboplastin Time 37.8 Sec. (24.2-36.6)
[2019-09-04 06:46] LABS: BUN/Creatinine Ratio 16; Blood Urea Nitrogen 19 mg/dL (9-20); Calcium 8.8 mg/dL (8.4-10.2); Hemolysis Index 0
[2019-09-04] MEDS ORDERED: FUROSEMIDE 40 MG/4 ML INJ IV ONE (06:53)
[2019-09-04] MEDS ORDERED: ONDANSETRON 4 MG/2 ML INJ IV ONE (07:20)
[2019-09-04] MEDS ORDERED: MIDAZOLAM 2 MG/2 ML INJ IV NR (07:30)
[2019-09-04] MEDS ORDERED: MIDAZOLAM 5 MG/5 ML INJ MDV IV ONE (08:30)
--- NOTE | 2019-09-04 08:54 | Cat Scan Report ---
CTA CHEST WITH CONTRAST INDICATION : Shortness of breath, positive d-dimer, jugular venous distention. TECHNIQUE: Axial imaging performed through the chest, with contrast bolus timing set to maximize opa cification of the pulmonary arteries. Sagittal and coronal reformatted images. 3-plane MIP reformatte d images were obtained. All CT scans at this location are performed using CT dose reduction for ALAR A by means of automated exposure control. 100 mL of intravenous contrast administered. COMPARISON: 07/31/2019 FINDINGS: Bolus: Contrast bolus timing is adequate. PTE: No filling defect is present to suggest PTE. Mediastinum: Moderate to severe cardiomegaly is unchanged. No pericardial effusion. The aorta is wit hin normal limits. The thyroid gland tracheobronchial tree and esophagus are unremarkable. There are multiple slightly prominent mediastinal lymph nodes throughout the paratracheal chain, AP window marely in and bilateral hilar chains. The largest lymph node measures 2.4 x 1.4 cm in the AP window. This ap pears slightly increased in size since the previous exam. Lungs: Mild bilateral pulmonary venous congestion has developed. No evidence for infiltrate, pleural effusion, pneumothorax or lung mass. Bones: Degenerative changes in the spine with nothing acute. Upper abdomen: Limited imaging of the upper abdomen shows nothing acute. IMPRESSION: No evidence for pulmonary embolus. Moderate to severe cardiomegaly, stable. Pulmonary venous congestion has developed bilaterally. Slightly prominent mediastinal lymph nodes of uncertain etiology. These are probably reactive in natu re although neoplastic process is difficult to exclude. Consider follow-up. Signer Name: Chapincito Cortez Jr, MD Signed: 09/04/2019 8:49 AM Workstation Name: [id number]
--- NOTE | 2019-09-04 09:57 | History and Physical Report ---
History of Present Illness Date of examination: 09/04/19 Date of admission: 09/04/19 Chief complaint: chest pain History of present illness: 44-year-old male. pt with past medical history of HIV, not on antiviral therapy, Jeancarlos artery disease status post PCI 6 weeks ago in [facility]. He reports that he had one or 2 stents placed 6 weeks ago at [facility]. Congestive heart failure unknown ejection fraction Ongoing tobacco and marijuana use presented to the emergency room with worsening shortness of breath and chest pain Patient grades his pain between 4-5 over 10 radiating to the left shoulder, not associated with nausea vomiting or diaphoresis At the time of my evaluation patient did not have chest pain Also complains of shortness of breath and generalized weakness Past History Past Medical History: CAD, heart failure, hypertension, hyperlipidemia, other (HIV) Past Surgical History: PTCA Social history: smoking. denies: alcohol abuse, prescription drug abuse, IV drug use Family history: hypertension Medications and Allergies Allergies Allergy/AdvReac Type Severity Reaction Status Date / Time TL Inhibitors AdvReac Angioedema Verified 07/31/19 07:48 Home Medications Medication Instructions Recorded Confirmed Last Taken Type ALBUTEROL Inhaler (OR & NICU) 2 puff IH QID PRN #8.5 gram 08/09/19 09/04/19 Unknown Rx [ProAir HFA Inhaler] Active Meds: Active Medications Nitroglycerin (Nitrostat) 0.4 mg SL .Q5MIN PRN PRN Reason: Chest Pain Review of Systems Constitutional: weakness, no weight loss, no weight gain, no fever, no chills Ears, nose, mouth and throat: no nasal congestion, no nasal discharge Cardiovascular: chest pain, shortness of breath, no orthopnea, no palpitations Respiratory: shortness of breath, no cough with sputum Gastrointestinal: no abdominal pain, no nausea, no vomiting Genitourinary Male: no dysuria, no hematuria Musculoskeletal: no myalgias, no arthritis Integumentary: no rash, no lesions Neurological: no weakness, no numbness Psychiatric: no anxiety, no depression Endocrine: no cold intolerance, no heat intolerance Hematologic/Lymphatic: no easy bruising, no easy bleeding Allergic/Immunologic: no urticaria, no allergic rhinitis Exam - Constitutional Vitals: Temp Pulse Resp BP Pulse Ox 98.1 F 81 16 130/97 95 09/04/19 05:57 09/04/19 08:56 09/04/19 08:56 09/04/19 08:56 09/04/19 08:56 General appearance: Present: no acute distress, well-nourished - EENT Eyes: Present: PERRL, EOM intact - Neck Neck: Present: supple, normal ROM - Respiratory Respiratory effort: normal Respiratory: bilateral: diminished, rales, negative: rhonchi, wheezing - Cardiovascular Rhythm: regular Heart Sounds: Present: S1 & S2 - Extremities Extremities: no ischemia, No edema - Abdominal General gastrointestinal: Present: soft, non-tender, non-distended, normal bowel sounds - Integumentary Integumentary: Present: clear, warm - Musculoskeletal Musculoskeletal: strength equal bilaterally - Psychiatric Psychiatric: appropriate mood/affect, cooperative - Neurologic Neurologic: CNII-XII intact, moves all extremities Results - Labs CBC & Chem 7: 09/04/19 06:11 09/04/19 06:11 Labs: Abnormal lab results 09/04/19 09/04/19 09/04/19 Range/Units 06:11 06:11 06:24 WBC 3.5 L (4.5-11.0) K/mm3 RDW 15.4 H (13.2-15.2) % Lymph # 1.0 L (1.2-5.4) K/mm3 PT 15.1 H (12.2-14.9) Sec. INR 1.17 H (0.87-1.13) APTT 37.8 H (24.2-36.6) Sec. D-Dimer 284.23 H (0-234) ng/mlDDU Carbon Dioxide 21 L (22-30) mmol/L Glucose 111 H (75-100) mg/dL Lactate Dehydrogenase (91-180) units/L Total Creatine Kinase (55-170) units/L NT-Pro-B Natriuret Pep (0-450) pg/mL 09/04/19 Range/Units 06:24 WBC (4.5-11.0) K/mm3 RDW (13.2-15.2) % Lymph # (1.2-5.4) K/mm3 PT (12.2-14.9) Sec. INR (0.87-1.13) APTT (24.2-36.6) Sec. D-Dimer (0-234) ng/mlDDU Carbon Dioxide (22-30) mmol/L Glucose (75-100) mg/dL Lactate Dehydrogenase 274 H (91-180) units/L Total Creatine Kinase 443 H (55-170) units/L NT-Pro-B Natriuret Pep 5605 H (0-450) pg/mL Assessment and Plan --Chest pain/angina Serial cardiac enzymes, echocardiogram EKG as needed, resume home cardiac medications --Coronary artery disease status post PCI; Dual antiplatelets, beta blockers Resume home cardiac medications --Congestive heart failure; unknown ejection fraction Probably systolic, continue heart failure medications Follow echocardiogram. Follow cardiology recommendations --Dyslipidemia; statins --Hypertension ; Moderate controlled, continue current antihypertensives When necessary medications --Elevated D-dimers; CTA chest :negative PE, cardiomegaly, pulmonary venous congestion And mediastinal lymphadenopathy --DVT prophylaxis; Lovenox Monitor closely and adjust management as needed Cardiology evaluation
--- NOTE | 2019-09-04 11:47 | Event Note ---
Date: 09/04/19 Detailed cardiology consultation stephenie. Leticia GIRON NP / DR. ASH
[2019-09-04 12:38] LABS: Creatine Kinase MB 2.9 ng/mL (0.0-4.0)
[2019-09-04 17:28] LABS: Creatine Kinase MB 2.7 ng/mL (0.0-4.0)
[2019-09-04 19:19] VITALS: BP 109/79
[2019-09-04] MEDS ORDERED: carvediloL 6.25 MG TAB PO SCH (22:00)
[2019-09-04] MEDS ORDERED: TICAGRELOR 90 MG TAB PO SCH (22:00)
[2019-09-04] MEDS ORDERED: FUROSEMIDE 40 MG/4 ML INJ IV SCH (22:00)
--- NOTE | 2019-09-05 00:21 | Consultation ---
REQUESTING PHYSICIAN: Dr. Shannon Alanis. CONSULTING PHYSICIAN: Dr. Hernandez. HISTORY OF PRESENT ILLNESS: This is a 44-year-old male who is now presenting to the Emergency Room with complaints of sudden onset of severe dyspnea for further evaluation and management. History is now obtained from the patient and review of records. The patient states that he has moved to [place] about a month ago. He used to be in [place], [place] prior to that. He is known to have cardiac problems. The patient gives history of cardiomyopathy with ejection fraction of 10% for few years now. He has been on medications and under the care of the inhalation therapist. Then, in May 2019, he was admitted with complaints of chest pain and underwent cardiac catheterization and coronary arteriography followed by stenting of the right coronary artery. He has been placed on Brilinta following that. The patient said that he is taking Brilinta, but is not taking aspirin at the present time. According to the patient, he was doing well until the night prior to admission when he started having severe shortness of breath. It became progressively worse. Associated with orthopnea. Denied any edema of feet. He was also complaining of anterior chest discomfort. No definite radiation to the neck, throat or arms. No palpitations, claudications, dizziness or syncope. The patient denied any edema of feet. As symptoms got worse, he came to the Emergency Room. In the Emergency Room, the patient was noted to be in congestive heart failure. So, the patient was then advised admission for further management. The patient stated that he is feeling better now after receiving the Lasix. He is not having any complaints of chest pain. Mild orthopnea noted. No PND. According to the patient, he has been taking his medications regularly. PAST MEDICAL HISTORY: Includes; 1. Coronary artery disease with coronary angioplasty with stent placement to the right coronary artery in May 2019. 2. History of nonischemic cardiomyopathy with ejection fraction of 10%. 3. Chronic kidney disease. 4. Hypertension. 5. History of human immunodeficiency infection, not on treatment according to him. 6. Past history of cocaine, alcohol and tobacco abuse. FAMILY HISTORY: Unremarkable. SOCIAL HISTORY: The patient denies any alcohol abuse at the present time. Denies smoking, taking medications regularly. ALLERGIES: TL INHIBITORS. MEDICATIONS: At the time of admission, the patient was on carvedilol 25 mg p.o. b.i.d., atorvastatin 80 mg p.o. at bedtime, Lasix 40 mg p.o. b.i.d., aspirin 81 mg p.o. daily, Brilinta 90 mg p.o. b.i.d., spironolactone 50 mg daily, losartan 25 mg p.o. daily, hydralazine 10 mg p.o. t.i.d. REVIEW OF SYSTEMS: CARDIOVASCULAR: As described above. RESPIRATORY: The patient denies any history of wheezing or asthma. No GI or complaints at the present time. PHYSICAL EXAMINATION: GENERAL: This is a 44-year-old male, well-built, well-nourished, no acute distress at the present time. The patient was conscious, alert, oriented, afebrile. VITAL SIGNS: Normal and stable. SKIN: Warm and dry. HEENT: Pupils reactive. NECK: Supple. Both carotids well palpable without any bruit. No JVD. CHEST: Lungs are clear. HEART: S1, S2 heard well. Grade 1/6 soft systolic murmur noted. No diastolic murmur, no gallop rhythm. ABDOMEN: Soft and nontender. No palpable masses. Bowel sounds are heard normally. EXTREMITIES: No edema, no calf tenderness. Good peripheral pulses. NEUROLOGIC: Grossly within normal limits. RECTAL: Not done at this time. EKG done showed normal sinus rhythm, no acute changes. LABORATORY DATA: The patient's blood pressure was elevated and at the time of admission it was 137/112. Heart rate was 83 per minute and regular. The patient's CBC showed hemoglobin of 13.5, hematocrit 39.8. WBC count was 3500. BMP showed potassium of 3.6, BUN was 19, creatinine 1.2 and blood sugar was 111. IMPRESSION: 1. Congestive heart failure with reduced ejection fraction -- decompensated. 2. Nonischemic cardiomyopathy with ejection fraction of 10%. 3. Coronary artery disease status post coronary angioplasty with stent placement of the right coronary artery in May 2019. 4. History of hypertension. 5. Chronic kidney disease. 6. History of substance abuse. This is a 44-year-old male who has moved here recently from [place]. He is now admitted to the hospital with complaints of severe shortness of breath and orthopnea for further management. The patient's history and findings are consistent with decompensated congestive heart failure with reduced ejection fraction. So, we will go ahead and resume all his medications. Start him on IV Lasix and monitor him closely. The patient is already feeling better according to him. I did review his records from [place]. The patient states that he is not smoking or drinking alcohol or taking cocaine, etc. at the present time. I have advised him to stay away from those. We will resume his medications and monitor his rate and rhythm as well as blood pressure closely and adjust medications accordingly. The patient was advised that he needs a cardiac followup as an outpatient. Because of severe cardiomyopathy with severe left ventricular systolic dysfunction of few years in duration, we recommended defibrillator. Temporarily, we can try LifeVest, but the patient stated that he has done that in the past. He prefers to go ahead and get the defibrillator done. So, we will try to make arrangements for the same. Pros and cons discussed with the patient. He expressed understanding. Rest of the plan as per orders. Thank you very much for this consultation. We will follow the patient along with you. JOB# [id number] CHELO/VITA
--- NOTE | 2019-09-05 06:13 | Discharge Summary ---
Providers - Providers Date of Admission: 09/04/19 09:35 Date of discharge: 09/04/19 (AMA) Attending physician: DARWIN WHIPPLE Primary care physician: PLATEN DRIER OPERATOR Hospitalization Reason for admission: Chest schulte and shortness of breath Condition: Stable Hospital course: 44-year-old male. pt with past medical history of HIV, not on antiviral th erapy, Jeancarlos artery disease status post PCI 6 weeks ago in [facility]. He reports that he had one or 2 stents placed 6 weeks ago at [facility]. Congestive heart failure unknown ejection fraction Ongoing tobacco and marijuana use presented to the emergency room with worsening shortness of breath and chest pain. Admitted appropriately managed,evaluated by cardiology. However patient refused to stay ,reports he has some imp work to take care and left AMA Admitting Diagnosis: --Chest pain/angina Serial cardiac enzymes, echocardiogram EKG as needed, resume home cardiac medications --Coronary artery disease status post PCI; Dual antiplatelets, beta blockers Resume home cardiac medications --Congestive heart failure; unknown ejection fraction Probably systolic, continue heart failure medications Follow echocardiogram. Follow cardiology recommendations --Dyslipidemia; statins --Hypertension ; Moderate controlled, continue current antihypertensives When necessary medications --Elevated D-dimers; CTA chest :negative PE, cardiomegaly, pulmonary venous congestion And mediastinal lymphadenopathy --DVT prophylaxis; Lovenox Left AMA Disposition: DC-07 LEFT AGAINST MED ADVICE Time spent for discharge: 31 min Core Measure Documentation - Palliative Care Palliative Care/ Comfort Measures: Not Applicable - Core Measures Any of the following diagnoses?: none Exam - Physical Exam Narrative exam: Left AMA - Constitutional Vitals: Temp Pulse Resp BP Pulse Ox 97.7 F 79 16 109/79 96 09/04/19 19:18 09/04/19 19:18 09/04/19 19:18 09/04/19 19:18 09/04/19 19:18 Plan Additional Instructions: Left AMA Follow up with: PRIMARY CARE, [Primary Care Provider] - 3-5 Days Forms: AMA Form
[2019-09-05] MEDS ORDERED: FUROSEMIDE 40 MG/4 ML INJ IV SCH (10:00)
[2019-09-05] MEDS ORDERED: SPIRONOLACTONE 25 MG TAB PO SCH (10:00)
[2019-09-05] MEDS ORDERED: ENOXAPARIN 40 MG/0.4 ML INJ SUB-Q SCH (10:00)
[2019-09-05] MEDS ORDERED: ASPIRIN 325 MG TAB PO SCH (10:00)
[2019-09-05] MEDS ORDERED: ASPIRIN 81 MG TAB CHEW PO SCH (10:00)
[2019-09-05] MEDS ORDERED: LOSARTAN 25 MG TAB PO SCH (10:00)
== END 2019-09-04 20:45 | disposition left against medical advice (07) ==
LOC: ED 05:49 → 4A 09:35
PROVIDERS: ADMIT Internal Medicine; ATTEND Internal Medicine
DX: R07.89 Other chest pain (principal); I11.0 Hypertensive heart disease with heart failure; I50.9 Heart failure, unspecified; I25.10 Atherosclerotic heart disease of native coronary artery without angina pectoris; R74.8 Abnormal levels of other serum enzymes; E78.5 Hyperlipidemia, unspecified; Z91.14 Patient's other noncompliance with medication regimen; Z21 Asymptomatic human immunodeficiency virus [HIV] infection status; Z90.49 Acquired absence of other specified parts of digestive tract
CPT/HCPCS: 36415; 71045; 71275; 80048; 82550; 82553; 83615; 83735; 83880; 84484; 85025; 85379; 85610; 85730; 93005; 93010; 94644; 96374; 96375; 99291; 99406; G0378; J1940; J2250; J2405; Q9967

== ENCOUNTER 2019-10-16 09:01 | Inpatient (IN) | payer MEDICARE ==
--- NOTE | 2019-10-16 10:11 | Emergency Department Report ---
ED Shortness of Breath HPI - General Chief Complaint: Dyspnea/Respdistress Stated Complaint: SOB, CHEST PAIN Time Seen by Provider: 10/16/19 10:10 Source: patient, EMS Mode of arrival: Stretcher Limitations: No Limitations - History of Present Illness Initial Comments: 44-year-old male here reports that he is having shortness of breath and chest pain with history of hypertension, CHF with EF of 10%. He says this started yesterday. Patient has been here and previously on 07/31/2019 08/09/2019 and 09/04/2019. He was admitted on 09/04/2019 for exacerbation of CHF. Denies any fever or chills or nausea or vomiting. Chest pain is 5 out of 10 and located on both sides of chest but more to the left. He reports that he is more short of breath and he moved from [place] 3 weeks ago where he had utilization manager and now he is here and he does not have a utilization manager. Patient reports that he was taking torsemide twice a day but he ran out and he took some Lasix today and yesterday. He reports that he is on Tito ache and had a heart medication that he does not remember. He has a history of cocaine abuse and she said he stopped about 6 years ago. Denies any alcohol or drug use. MD Complaint: shortness of breath, chest pain Onset/Timin -: days(s) Severity: moderate Pain Scale: 6 Quality: aching, sharp Consistency: constant Improves With: nothing Worsens With: nothing Known History Of: congestive heart failure, HIV Context: medication noncompliance Associated Symptoms: chest pain, lower abdominal swelling, palpitations Treatments Prior to Arrival: none - Related Data Home Oxygen Therapy: No Previous Rx's Medication Instructions Recorded Last Taken Type Albuterol INH(or & Nicu Only) 2 puff IH QID PRN #8.5 gram 08/09/19 Unknown Rx [ProAir HFA Inhaler] Allergies Allergy/AdvReac Type Severity Reaction Status Date / Time TL Inhibitors AdvReac Angioedema Verified 07/31/19 07:48 ED Review of Systems ROS: Stated complaint: SOB, CHEST PAIN Other details as noted in HPI Constitutional: denies: chills, fever Respiratory: shortness of breath, SOB with exertion, SOB at rest. denies: cough, wheezing Cardiovascular: chest pain, palpitations. denies: edema, syncope Gastrointestinal: other (abdominal swelling). denies: abdominal pain, nausea, vomiting, diarrhea, constipation, hematemesis, melena, hematochezia Genitourinary: denies: hematuria Musculoskeletal: denies: back pain, joint swelling, arthralgia, myalgia Skin: denies: rash Neurological: weakness. denies: headache, numbness, paresthesias, confusion, abnormal gait, vertigo ED Past Medical Hx - Past Medical History Previous Medical History?: Yes Hx Hypertension: Yes Hx Congestive Heart Failure: Yes Hx HIV: Yes - Surgical History Past Surgical History?: Yes Additional Surgical History: tonsilectomy - Family History Family history: hypertension - Social History Smoking Status: Never Smoker Substance Use Type: Other (former cocaine abuse) - Medications Home Medications: Home Medications Medication Instructions Recorded Confirmed Last Taken Type Albuterol INH(or & Nicu Only) 2 puff IH QID PRN #8.5 gram 08/09/19 10/16/19 Un known Rx [ProAir HFA Inhaler] ED Physical Exam - General Limitations: No Limitations General appearance: alert, in no apparent distress - Head Head exam: Present: atraumatic, normocephalic - Eye Eye exam: Present: normal appearance, PERRL, EOMI Pupils: Present: normal accommodation - ENT ENT exam: Present: normal exam, normal orophraynx, mucous membranes moist - Neck Neck exam: Present: normal inspection, full ROM. Absent: tenderness, lymphadenopathy - Respiratory Respiratory exam: Present: respiratory distress, rhonchi, accessory muscle use (mild). Absent: wheezes, rales, stridor, chest wall tenderness, decreased breath sounds, prolonged expiratory - Cardiovascular Cardiovascular Exam: Present: regular rate, normal rhythm, normal heart sounds - GI/Abdominal GI/Abdominal exam: Present: soft, distended, normal bowel sounds. Absent: tenderness, guarding, rebound, organomegaly, mass, bruit, pulsatile mass, hernia - Extremities Exam Extremities exam: Present: normal inspection, full ROM, normal capillary refill, other (No cce. + 2 pulses in all extremities, no neurovascular compromise). Absent: tenderness, pedal edema, joint swelling, calf tenderness - Back Exam Back exam: Present: normal inspection, full ROM, other (ambulates without any difficulties). Absent: tenderness, CVA tenderness (R), CVA tenderness (L), muscle spasm, paraspinal tenderness, vertebral tenderness, rash noted - Neurological Exam Neurological exam: Present: alert, oriented X3, normal gait - Psychiatric Psychiatric exam: Present: normal affect, normal mood - Skin Skin exam: Present: warm, dry, intact, normal color. Absent: rash ED Course Vital Signs 10/16/19 10/16/19 10/16/19 09:10 13:31 15:53 Temperature 98 F 97.5 F L Pulse Rate 80 98 H 95 H Respiratory 18 16 18 Rate Blood Pressure 122/94 Blood Pressure 118/91 137/96 [Right] O2 Sat by Pulse 99 98 100 Oximetry - Reevaluation(s) Reevaluation #1: 10/16/19 10:30 Given Lasix 40 mg IV. O2 at 3 L nasal cannula. Vital signs are stable except O2 sat on room air is 90% and on 3 L it is 95. Still with increased work of breathing Reevaluation #2: 10/16/19 12:02 Patient stable. Labs reviewed. Abnormal labs noted. Patient stable. ABG with mild hypoxia and patient was placed on 4 L dizzy cannula and O2 sat is greater than 96%. Reevaluation #3: 10/16/19 14:[address] Contreras and to be admitted to in-hospital status. Patient is stable in no acute distress. Lab work reviewed. I collaborated with Dr. Smith who saw patient. ED Medical Decision Making - Lab Data Result diagrams: 10/16/19 10:07 10/16/19 10:07 Lab Results 10/16/19 10/16/19 10/16/19 Range/Units 10:07 10:07 10:07 WBC 4.0 L (4.5-11.0) K/mm3 RBC 4.27 (3.65-5.03) M/mm3 Hgb 13.4 (11.8-15.2) gm/dl Hct 40.2 (35.5-45.6) % MCV 94 (84-94) fl MCH 31 (28-32) pg MCHC 33 (32-34) % RDW 15.5 H (13.2-15.2) % Plt Count 223 (140-440) K/mm3 Lymph % (Auto) 29.0 (13.4-35.0) % Teller % (Auto) 5.8 (0.0-7.3) % Eos % (Auto) 1.3 (0.0-4.3) % Baso % (Auto) 1.4 (0.0-1.8) % Lymph # 1.2 (1.2-5.4) K/mm3 Teller # 0.2 (0.0-0.8) K/mm3 Eos # 0.1 (0.0-0.4) K/mm3 Baso # 0.1 (0.0-0.1) K/mm3 Seg Neutrophils % 62.5 (40.0-70.0) % Seg Neutrophils # 2.5 (1.8-7.7) K/mm3 PT (12.2-14.9) Sec. INR (0.87-1.13) APTT (24.2-36.6) Sec. D-Dimer (0-234) ng/mlDDU ABG pH (7.350-7.450) pH Units ABG pCO2 mm Hg ABG pO2 (80.0-90.0) mm Hg ABG HCO3 (20.0-26.0) mmol/L ABG O2 Saturation (95.0-99.0) % ABG O2 Content (0.0-44) ABG Base Excess (-2.0-3.0) mmol/L ABG Hemoglobin (14.0-18.0) gm/dl ABG Carboxyhemoglobin (0.0-5.0) % ABG Methemoglobin (0.0-1.5) % Oxyhemoglobin (95.0-99.0) % FiO2 % Sodium 138 (137-145) mmol/L Potassium 3.7 (3.6-5.0) mmol/L Chloride 101.6 (98-107) mmol/L Carbon Dioxide 19 L (22-30) mmol/L Anion Gap 21 mmol/L BUN 25 H (9-20) mg/dL Creatinine 1.1 (0.8-1.5) mg/dL Estimated GFR > 60 ml/min BUN/Creatinine Ratio 23 % Glucose 104 H (75-100) mg/dL Calcium 9.3 (8.4-10.2) mg/dL Magnesium (1.7-2.3) mg/dL Total Bilirubin (0.1-1.2) mg/dL Direct Bilirubin (0-0.2) mg/dL Indirect Bilirubin mg/dL AST (5-40) units/L ALT (7-56) units/L Alkaline Phosphatase (35-129) units/L Total Creatine Kinase (55-170) units/L CK-MB (CK-2) (0.0-4.0) ng/mL CK-MB (CK-2) Rel Index (0-4) NT-Pro-B Natriuret Pep 4791 H (0-450) pg/mL Total Protein (6.3-8.2) g/dL Albumin (3.9-5) g/dL Albumin/Globulin Ratio % Urine Color (Yellow) Urine Turbidity (Clear) Urine pH (5.0-7.0) Ur Specific Woodland (1.003-1.030) Urine Protein (Negative) mg/dL Urine Glucose (UA) (Negative) mg/dL Urine Ketones (Negative) mg/dL Urine Blood (Negative) Urine Nitrite (Negative) Urine Bilirubin (Negative) Urine Urobilinogen (<2.0) mg/dL Ur Leukocyte Esterase (Negative) Urine WBC (Auto) (0.0-6.0) /HPF Urine RBC (Auto) (0.0-6.0) /HPF Urine Mucus /HPF Urine Opiates Screen Urine Methadone Screen Ur Barbiturates Screen Ur Phencyclidine Scrn Ur Amphetamines Screen U Benzodiazepines Scrn Urine Cocaine Screen U Marijuana (THC) Screen Drugs of Abuse Note 10/16/19 10/16/19 10/16/19 Range/Units 10:32 10:32 10:32 WBC (4.5-11.0) K/mm3 RBC (3.65-5.03) M/mm3 Hgb (11.8-15.2) gm/dl Hct (35.5-45.6) % MCV (84-94) fl MCH (28-32) pg MCHC (32-34) % RDW (13.2-15.2) % Plt Count (140-440) K/mm3 Lymph % (Auto) (13.4-35.0) % Teller % (Auto) (0.0-7.3) % Eos % (Auto) (0.0-4.3) % Baso % (Auto) (0.0-1.8) % Lymph # (1.2-5.4) K/mm3 Teller # (0.0-0.8) K/mm3 Eos # (0.0-0.4) K/mm3 Baso # (0.0-0.1) K/mm3 Seg Neutrophils % (40.0-70.0) % Seg Neutrophils # (1.8-7.7) K/mm3 PT 15.5 H (12.2-14.9) Sec. INR 1.21 H (0.87-1.13) APTT 35.3 (24.2-36.6) Sec. D-Dimer 516.76 H (0-234) ng/mlDDU ABG pH (7.350-7.450) pH Units ABG pCO2 mm Hg ABG pO2 (80.0-90.0) mm Hg ABG HCO3 (20.0-26.0) mmol/L ABG O2 Saturation (95.0-99.0) % ABG O2 Content (0.0-44) ABG Base Excess (-2.0-3.0) mmol/L ABG Hemoglobin (14.0-18.0) gm/dl ABG Carboxyhemoglobin (0.0-5.0) % ABG Methemoglobin (0.0-1.5) % Oxyhemoglobin (95.0-99.0) % FiO2 % Sodium (137-145) mmol/L Potassium (3.6-5.0) mmol/L Chloride (98-107) mmol/L Carbon Dioxide (22-30) mmol/L Anion Gap mmol/L BUN (9-20) mg/dL Creatinine (0.8-1.5) mg/dL Estimated GFR ml/min BUN/Creatinine Ratio % Glucose (75-100) mg/dL Calcium (8.4-10.2) mg/dL Magnesium 2.20 (1.7-2.3) mg/dL Total Bilirubin 1.00 (0.1-1.2) mg/dL Direct Bilirubin 0.4 H (0-0.2) mg/dL Indirect Bilirubin 0.6 mg/dL AST 28 (5-40) units/L ALT 16 (7-56) units/L Alkaline Phosphatase 86 (35-129) units/L Total Creatine Kinase 405 H (55-170) units/L CK-MB (CK-2) 3.2 (0.0-4.0) ng/mL CK-MB (CK-2) Rel Index 0.7 (0-4) NT-Pro-B Natriuret Pep (0-450) pg/mL Total Protein 8.0 (6.3-8.2) g/dL Albumin 3.7 L (3.9-5) g/dL Albumin/Globulin Ratio 0.9 % Urine Color (Yellow) Urine Turbidity (Clear) Urine pH (5.0-7.0) Ur Specific Woodland (1.003-1.030) Urine Protein (Negative) mg/dL Urine Glucose (UA) (Negative) mg/dL Urine Ketones (Negative) mg/dL Urine Blood (Negative) Urine Nitrite (Negative) Urine Bilirubin (Negative) Urine Urobilinogen (<2.0) mg/dL Ur Leukocyte Esterase (Negative) Urine WBC (Auto) (0.0-6.0) /HPF Urine RBC (Auto) (0.0-6.0) /HPF Urine Mucus /HPF Urine Opiates Screen Urine Methadone Screen Ur Barbiturates Screen Ur Phencyclidine Scrn Ur Amphetamines Screen U Benzodiazepines Scrn Urine Cocaine Screen U Marijuana (THC) Screen Drugs of Abuse Note 10/16/19 10/16/19 10/16/19 Range/Units 10:52 10:52 11:45 WBC (4.5-11.0) K/mm3 RBC (3.65-5.03) M/mm3 Hgb (11.8-15.2) gm/dl Hct (35.5-45.6) % MCV (84-94) fl MCH (28-32) pg MCHC (32-34) % RDW (13.2-15.2) % Plt Count (140-440) K/mm3 Lymph % (Auto) (13.4-35.0) % Teller % (Auto) (0.0-7.3) % Eos % (Auto) (0.0-4.3) % Baso % (Auto) (0.0-1.8) % Lymph # (1.2-5.4) K/mm3 Teller # (0.0-0.8) K/mm3 Eos # (0.0-0.4) K/mm3 Baso # (0.0-0.1) K/mm3 Seg Neutrophils % (40.0-70.0) % Seg Neutrophils # (1.8-7.7) K/mm3 PT (12.2-14.9) Sec. INR (0.87-1.13) APTT (24.2-36.6) Sec. D-Dimer (0-234) ng/mlDDU ABG pH 7.423 (7.350-7.450) pH Units ABG pCO2 36.0 mm Hg ABG pO2 55.9 L (80.0-90.0) mm Hg ABG HCO3 23.0 (20.0-26.0) mmol/L ABG O2 Saturation 89.2 L (95.0-99.0) % ABG O2 Content 16.4 (0.0-44) ABG Base Excess -1.0 (-2.0-3.0) mmol/L ABG Hemoglobin 13.4 L (14.0-18.0) gm/dl ABG Carboxyhemoglobin 2.1 (0.0-5.0) % ABG Methemoglobin 0.5 (0.0-1.5) % Oxyhemoglobin 86.8 L (95.0-99.0) % FiO2 32 % Sodium (137-145) mmol/L Potassium (3.6-5.0) mmol/L Chloride (98-107) mmol/L Carbon Dioxide (22-30) mmol/L Anion Gap mmol/L BUN (9-20) mg/dL Creatinine (0.8-1.5) mg/dL Estimated GFR ml/min BUN/Creatinine Ratio % Glucose (75-100) mg/dL Calcium (8.4-10.2) mg/dL Magnesium (1.7-2.3) mg/dL Total Bilirubin (0.1-1.2) mg/dL Direct Bilirubin (0-0.2) mg/dL Indirect Bilirubin mg/dL AST (5-40) units/L ALT (7-56) units/L Alkaline Phosphatase (35-129) units/L Total Creatine Kinase (55-170) units/L CK-MB (CK-2) (0.0-4.0) ng/mL CK-MB (CK-2) Rel Index (0-4) NT-Pro-B Natriuret Pep (0-450) pg/mL Total Protein (6.3-8.2) g/dL Albumin (3.9-5) g/dL Albumin/Globulin Ratio % Urine Color Yellow (Yellow) Urine Turbidity Clear (Clear) Urine pH 5.0 (5.0-7.0) Ur Specific [place]land 1.015 (1.003-1.030) Urine Protein 30 mg/dl (Negative) mg/dL Urine Glucose (UA) Neg (Negative) mg/dL Urine Ketones Neg (Negative) mg/dL Urine Blood Neg (Negative) Urine Nitrite Neg (Negative) Urine Bilirubin Neg (Negative) Urine Urobilinogen < 2.0 (<2.0) mg/dL Ur Leukocyte Esterase Neg (Negative) Urine WBC (Auto) < 1.0 (0.0-6.0) /HPF Urine RBC (Auto) 2.0 (0.0-6.0) /HPF Urine Mucus Few /HPF Urine Opiates Screen Presumptive negative Urine Methadone Screen Presumptive negative Ur Barbiturates Screen Presumptive negative Ur Phencyclidine Scrn Presumptive negative Ur Amphetamines Screen Presumptive negative U Benzodiazepines Scrn Presumptive negative Urine Cocaine Screen Presumptive negative U Marijuana (THC) Screen Presumptive positive Drugs of Abuse Note Disclamer - EKG Data -: EKG Interpreted by Me (attending physician) EKG shows normal: sinus rhythm - EKG Data Interpretation: LVH, other (PVCs) - Radiology Data Radiology results: report reviewed Chest x-ray dictated by radiologist and report reviewed by myself. Please see details below Findings [facility] [address] [place] [address] XRay Report Signed Patient: JONY ZIMMERMAN MR#: [id number] : 1975 Acct:[id number] Age/Sex: 44 / M ADM Date: 10/16/19 Loc: ED Attending Dr: Ordering Physician: HANNAH SMITH MD Date of Service: 10/16/19 Procedure(s): XR chest 1V ap Accession Number(s): [id number] cc: HANNAH SMITH MD Fluoro Time In Minutes: CHEST 1 VIEW INDICATION / CLINICAL INFORMATION: Chest Pain. COMPARISON: 09/04/2019 FINDINGS: SUPPORT DEVICES: None HEART / MEDIASTINUM: Moderate enlargement of the cardiomediastinal silhouette is unchanged. Prominence of the upper zone pulmonary vessels. LUNGS / PLEURA: No significant pulmonary or pleural abnormality. No pneumothorax. ADDITIONAL FINDINGS: Mild scarring in the lingular segment is unchanged IMPRESSION: 1. Stable cardiomegaly and pulmonary venous hypertension. Signer Name: Med Mckinney MD Signed: 10/16/2019 10:14 AM Workstation Name: [id number] Transcribed By: SUHAS Dictated By: Med Mckinney MD Electronically Authenticated By: Med Mckinney MD Signed Date/Time: 10/16/19 1014 DD/ 1013 TD/TT: - Medical Decision Making This is a 44-year-old male with a history of CHF with EF of 10%. He came to the emergency room reporting shortness of breath and chest pain. Examination sh owed patient with increased work of breathing, pulse ox less than 95% on room air and patient was placed on O2. Patient had chest x-ray done which show pulmonary congestion. Cardiac lab work stable, BNP elevated, d-dimer with mild elevation. This was dictated by radiologist and report reviewed by myself. Patient transferred to observation unit and hospital. He is stable and work of breathing improved. Denies any pain at present. 02 at 4 L nasal cannula as ABG showed mild hypoxia. - Differential Diagnosis CHF exacerbation, PNA, ACS, pleurisy Critical care attestation.: If time is entered above; I have spent that time in minutes in the direct care of this critically ill patient, excluding procedure time. ED Disposition Clinical Impression: Hypoxia, Noncompliance with medication regimen, Shortness of breath CHF exacerbation Qualifiers: Heart failure type: unspecified Qualified Code(s): I50.9 - Heart failure, un specified Disposition: DC-09 OP ADMIT IP TO THIS HOSP Is pt being admited?: Yes Does the pt Need Aspirin: No Condition: Stable
--- NOTE | 2019-10-16 10:19 | XRay Report ---
CHEST 1 VIEW INDICATION / CLINICAL INFORMATION: Chest Pain. COMPARISON: 09/04/2019 FINDINGS: SUPPORT DEVICES: None HEART / MEDIASTINUM: Moderate enlargement of the cardiomediastinal silhouette is unchanged. Prominenc e of the upper zone pulmonary vessels. LUNGS / PLEURA: No significant pulmonary or pleural abnormality. No pneumothorax. ADDITIONAL FINDINGS: Mild scarring in the lingular segment is unchanged IMPRESSION: 1. Stable cardiomegaly and pulmonary venous hypertension. Signer Name: Med Mckinney MD Signed: 10/16/2019 10:14 AM Workstation Name: [id number]
[2019-10-16] MEDS ORDERED: FUROSEMIDE 40 MG/4 ML INJ IV ONE (10:21)
[2019-10-16] MEDS ORDERED: PANTOPRAZOLE 40 MG INJ IV ONE (10:22)
[2019-10-16] MEDS ORDERED: ONDANSETRON 4 MG/2 ML INJ IV ONE (10:22)
[2019-10-16] MEDS ORDERED: MORPHINE 2 MG/1 ML INJ IV ONE (10:22)
[2019-10-16 11:23] LABS: Basophils # (Auto) 0.1 K/mm3 (0.0-0.1); Basophils % (Auto) 1.4 % (0.0-1.8); Eosinophils # (Auto) 0.1 K/mm3 (0.0-0.4); Eosinophils % (Auto) 1.3 % (0.0-4.3); Hematocrit 40.2 % (35.5-45.6); Hemoglobin 13.4 gm/dl (11.8-15.2); Lymphocytes # (Auto) 1.2 K/mm3 (1.2-5.4); Mean Corpuscular HGB Conc 33 % (32-34); Mean Corpuscular Volume 94 fl (84-94); Monocytes # (Auto) 0.2 K/mm3 (0.0-0.8); Monocytes % (Auto) 5.8 % (0.0-7.3); Platelet Count 223 K/mm3 (140-440); Red Blood Count 4.27 M/mm3 (3.65-5.03); Red Cell Distribution Width 15.5 % (13.2-15.2)
[2019-10-16 11:24] LABS: Bilirubin,Urine NEG (Negative); Blood,Urine NEG (Negative); Color,Urine Yellow (Yellow); Mucus,Urine FEW /HPF; Urobilinogen,Urine < 2.0 mg/dL (<2.0); WBC,Urine < 1.0 /HPF (0.0-6.0)
[2019-10-16 11:32] LABS: INR 1.21 (0.87-1.13); Partial Thromboplastin Time 35.3 Sec. (24.2-36.6)
[2019-10-16 11:33] LABS: Amphetamine Screen,Urine PRESUMPTIVE NEGATIVE; Benzodiazepines Screen,Urine PRESUMPTIVE NEGATIVE; Cocaine Screen,Urine PRESUMPTIVE NEGATIVE; Methadone Screen,Urine PRESUMPTIVE NEGATIVE; Opiate Screen,Urine PRESUMPTIVE NEGATIVE
[2019-10-16 11:42] LABS: Creatine Kinase MB 3.2 ng/mL (0.0-4.0)
[2019-10-16 11:47] LABS: Blood Urea Nitrogen 25 mg/dL (9-20)
[2019-10-16 11:48] LABS: BUN/Creatinine Ratio 23; Calcium 9.3 mg/dL (8.4-10.2); Hemolysis Index 13
[2019-10-16 11:55] LABS: Cannabinoid Screen,Urine PRESUMPTIVE POSITIVE
[2019-10-16 11:59] LABS: ABG Methemoglobin 0.5 % (0.0-1.5); ABG Oxygen Saturation 89.2 % (95.0-99.0); ABG PH 7.423 pH Units (7.350-7.450); ABG PO2 55.9 mm Hg (80.0-90.0)
[2019-10-16 12:14] LABS: Albumin 3.7 g/dL (3.9-5); Bilirubin,Direct 0.4 mg/dL (0-0.2)
--- NOTE | 2019-10-16 13:15 | History and Physical Report ---
History of Present Illness Chief complaint: I cannot breathe and my medicine is not working History of present illness: 44-year-old male with HIV noncompliant with antiretroviral therapy, CAD status post PCI, CHF (EF 10%), HTN, HLD presents to emergency department for evaluation. Patient states that he had experienced shortness of breath over the past 5 days with worsening symptoms over the past 2 days. Patient acknowledges shortness of breath, dyspnea on exertion, dyspnea at rest, leg edema, decreased exercise tolerance, orthopnea/PND. EMS notified and upon arrival the patient was found to be in distress and subsequently transported to [facility] for further care and evaluation. Patient seen and evaluated in the emergency department. Lab and imaging studies reviewed. Patient found to have acute respiratory failure, CHF decompensation, acidosis, and HIV. Patient admitted to medical floor for medical stabilization due to increased risk of cardiac decompensation. Cardiology consulted in ED. Patient initiated on CHF protocol and treated with supplemental oxygen and diuretics with mild improvement in patient's symptoms. Patient currently sitting up in bed using his accessory muscles to breathe with supplemental oxygen in place. Prior admission on 09/04/2019 reviewed. All listed medication reconciled at time of admission. Patient denies fever, chills, productive cough, skin rash, recent ill contacts. Past History Past Medical History: CAD, HIV/AIDS, hypertension, hyperlipidemia, other (See HPI) Past Surgical History: No surgical history Social history: single. denies: smoking, alcohol abuse, prescription drug abuse Family history: hypertension Medications and Allergies Allergies Allergy/AdvReac Type Severity Reaction Status Date / Time TL Inhibitors AdvReac Angioedema Verified 07/31/19 07:48 Home Medications Medication Instructions Recorded Confirmed Last Taken Type Albuterol INH(or & Nicu Only) 2 puff IH QID PRN #8.5 gram 08/09/19 10/16/19 Unknown Rx [ProAir HFA Inhaler] Review of Systems Constitutional: no weight loss, no weight gain, no fever Ears, nose, mouth and throat: no ear pain, no ear discharge, no decreased hearing, no nose pain, no nasal congestion, no sinus pressure Cardiovascular: orthopnea, shortness of breath, dyspnea on exertion, paroxysmal nocturnal dyspnea, high blood pressure, decreased exercise tolerance Respiratory: no cough, no cough with sputum, no excessive sputum Gastrointestinal: no nausea, no vomiting, no diarrhea, no constipation Genitourinary Male: no hematuria, no flank pain, no discharge, no urinary frequency, no urinary hesitancy, no nocturia Rectal: no pain, no incontinence, no bleeding Musculoskeletal: no neck stiffness, no neck pain, no shooting arm pain, no arm numbness/tingling, no low back pain, no shooting leg pain, no leg numbness/tingling Integumentary: no rash, no pruritis, no redness, no sores, no wounds, no jaundice Neurological: no transient paralysis, no paralysis, no weakness, no parathesias, no numbness, no tingling, no seizures Psychiatric: no anxiety, no memory loss, no change in sleep habits, no insomnia, no change in appetite, no change in libido Endocrine: no cold intolerance, no heat intolerance, no polyphagia, no polydipsia, no polyuria Hematologic/Lymphatic: no easy bruising, no easy bleeding, no lymphadenopathy Allergic/Immunologic: no urticaria, no allergic rhinitis, no persistent infections, no anaphylaxis Exam - Constitutional Vitals: Temp Pulse Resp BP Pulse Ox 98 F 80 18 118/91 99 10/16/19 09:10 10/16/19 09:10 10/16/19 09:10 10/16/19 09:10 10/16/19 09:10 General appearance: Present: mild distress - EENT Eyes: Present: PERRL ENT: hearing intact, clear oral mucosa - Neck Neck: Present: supple, normal ROM - Respiratory Respiratory effort: normal Respiratory: bilateral: diminished, rhonchi - Cardiovascular Heart Sounds: Present: S1 & S2. Absent: rub, click - Extremities Extremities: pulses symmetrical Extremity abnormal: edema Peripheral Pulses: within normal limits - Abdominal General gastrointestinal: Present: soft, non-tender, non-distended, normal bowel sounds Male genitourinary: Present: normal - Integumentary Integumentary: Present: clear, warm, dry - Musculoskeletal Musculoskeletal: generalized weakness - Psychiatric Psychiatric: appropriate mood/affect, intact judgment & insight - Neurologic Neurologic: CNII-XII intact, moves all extremities Results - Labs CBC & Chem 7: 10/16/19 10:07 10/16/19 10:07 Labs: Abnormal lab results 10/16/19 10/16/19 10/16/19 Range/Units 10:07 10:07 10:07 WBC 4.0 L (4.5-11.0) K/mm3 RDW 15.5 H (13.2-15.2) % PT (12.2-14.9) Sec. INR (0.87-1.13) D-Dimer (0-234) ng/mlDDU ABG pO2 (80.0-90.0) mm Hg ABG O2 Saturation (95.0-99.0) % ABG Hemoglobin (14.0-18.0) gm/dl Oxyhemoglobin (95.0-99.0) % Carbon Dioxide 19 L (22-30) mmol/L BUN 25 H (9-20) mg/dL Glucose 104 H (75-100) mg/dL Direct Bilirubin (0-0.2) mg/dL Total Creatine Kinase (55-170) units/L NT-Pro-B Natriuret Pep 4791 H (0-450) pg/mL Albumin (3.9-5) g/dL 10/16/19 10/16/19 10/16/19 Range/Units 10:32 10:32 11:45 WBC (4.5-11.0) K/mm3 RDW (13.2-15.2) % PT 15.5 H (12.2-14.9) Sec. INR 1.21 H (0.87-1.13) D-Dimer 516.76 H (0-234) ng/mlDDU ABG pO2 55.9 L (80.0-90.0) mm Hg ABG O2 Saturation 89.2 L (95.0-99.0) % ABG Hemoglobin 13.4 L (14.0-18.0) gm/dl Oxyhemoglobin 86.8 L (95.0-99.0) % Carbon Dioxide (22-30) mmol/L BUN (9-20) mg/dL Glucose (75-100) mg/dL Direct Bilirubin 0.4 H (0-0.2) mg/dL Total Creatine Kinase 405 H (55-170) units/L NT-Pro-B Natriuret Pep (0-450) pg/mL Albumin 3.7 L (3.9-5) g/dL Assessment and Plan - Patient Problems (1) Acute respiratory failure Current Visit: Yes Status: Acute Qualifiers: Respiratory failure complication: hypoxia Qualified Code(s): J96.01 - Acute respiratory failure with hypoxia Plan to address problem: Supplemental oxygen, nebulizer therapy, chest x-ray, noninvasive positive pressure ventilation as clinically indicated, CTA chest to evaluate for PE, pulse oximetry. (2) Acute CHF Current Visit: No Status: Acute Qualifiers: Heart failure type: systolic Qualified Code(s): I50.21 - Acute systolic (congestive) heart failure Plan to address problem: Admit to medical floor, strict I's/O, daily weight, cardiology consulted in ED, diuresis, remote telemetry, supplemental oxygen, pulse oximetry, afterload reduction. BNP (3) HIV infection Current Visit: Yes Status: Acute Qualifiers: HIV symptom status: unspecified Qualified Code(s): B20 - Human immunodeficiency virus [HIV] disease Plan to address problem: Patient currently noncompliant with antiretroviral therapy, outpatient ID follow-up. (4) Noncompliance Current Visit: Yes Status: Acute Plan to address problem: Patient counseled regarding medication noncompliance. Patient knowledge understanding risk of medication noncompliance (5) Acidosis Current Visit: Yes Status: Acute Plan to address problem: IV fluid resuscitation therapy, BMP, repeat BMP in a.m. (6) DVT prophylaxis Current Visit: Yes Status: Acute Plan to address problem: SCD to bilateral lower extremities while in bed, prophylactic heparin.
[2019-10-16] MEDS ORDERED: ACETAMINOPHEN 325 MG TAB PO PRN (13:45)
[2019-10-16 17:53] LABS: Free T4 (Free Thyroxine) 1.23 ng/dL (0.76-1.46)
[2019-10-16] MEDS ORDERED: FUROSEMIDE 20 MG/2 ML INJ IV SCH (18:00)
[2019-10-16] MEDS: ONDANSETRON 4 MG/2 ML INJ IV PRN (18:42)
--- NOTE | 2019-10-16 19:41 | Cat Scan Report ---
CTA CHEST WITH IV CONTRAST INDICATION: dypsnea CONTRAST: 100 cc Omnipaque 350 IV COMPARISON: 09/04/2019 Three-plane MIP reconstructions were produced. All CT scans at this location are performed using CT d ose reduction for ALARA by means of automated exposure control. FINDINGS: Prominent cardiomegaly is again seen. Mild mediastinal negrita prominence is unchanged. Mild hilar negrita prominence is similar. No pleural effusions are seen. Groundglass type increased intersti tial markings are seen again, slightly more prominent now, with some patchy bilateral lower lobe alve olar type infiltrate. This probably all related to congestive change though I cannot exclude early de veloping pneumonitis. No dense areas of consolidation are seen. Atelectatic changes are noted in the lung bases which appear chronic and probably represent areas of scarring. A possible nodule is seen i n the right middle lobe laterally on image 140 of series 2 measuring 7 mm. As this was not present on ly one month ago probably this is a small patchy area of infiltrate rather than a true nodule. No oth er nodules or masses are seen. Visualized portions of the upper abdomen show fatty infiltration of th e liver. Aorta is not opacified for internal evaluation no obvious aneurysmal dilatation is seen. Only minimal atherosclerotic changes are noted. Good opacification of the pulmonary arterial system was achieved. In the major branch of the left low er lobe at the periphery a small filling defect is seen which could represent a minimal PTE. This was not obvious previously. Possibly this is artifactual however. No other evidence of PTE is identified . IMPRESSION: 1. Questionable minimal left lower lobe PTE as above, of questionable clinical significance even if r eal 2. Prominent cardiomegaly and evidence of congestive failure Signer Name: James Queen MD Signed: 10/16/2019 7:36 PM Workstation Name: [id number]
[2019-10-16] MEDS: HEPARIN 5,000 UNIT/1 ML VIAL SUB-Q SCH (22:03)
[2019-10-17] MEDS: MORPHINE 2 MG/1 ML INJ IV PRN ×2 (01:12→05:37)
[2019-10-17] MEDS: LORazepam 0.5 MG TAB PO SCH ×2 (03:04→21:50)
[2019-10-17] MEDS: BENZONATATE 100 MG CAP PO SCH ×3 (05:37→21:50)
--- NOTE | 2019-10-17 09:57 | Discharge Summary ---
Providers - Providers Date of Admission: 10/16/19 13:45 Attending physician: MARCY MANN MD 10/16/19 15:39 Consult to Physician [CONS] Routine Comment: Consulting Provider: ZEUS VEGA Physician Instructions: Reason For Exam: CHF EF10% Primary care physician: [facility] Hospitalization Condition: Stable Hospital course: 44-year-old man who presents to the hospital with shortness of breath and chest pain. Past medical history includes CHF EF 10% and hypertension. Labs show positive UDS with marijuana Heart Failure Patient was diuresed, his meds were optimized. Acute respiratory failure ruled out, normal oxygenation ABG and O2 sats HIV Not compliance with medications, outpatient ID follow-up Nonadherence Preventative health counseling performed for 17 minutes DVT prophylaxis; early ambulation Disposition: TO HOME OR SELFCARE Time spent for discharge: 35 minutes Core Measure Documentation - Palliative Care Palliative Care/ Comfort Measures: Not Applicable - Core Measures Any of the following diagnoses?: heart failure - Heart Failure Discharge Requirements TL/ARB for LVSD if EF <40%: No Reason for no TL/ARB: Allergy or sensitivity Beta juanito at discharge: Yes Exam - Constitutional Vitals: Temp Pulse Resp BP Pulse Ox 97.6 F 90 17 120/95 94 10/17/19 04:16 10/17/19 04:16 10/17/19 06:07 10/17/19 04:16 10/17/19 07:51 General appearance: Present: no acute distress, well-nourished - EENT Eyes: Present: PERRL ENT: hearing intact, clear oral mucosa - Neck Neck: Present: supple, normal ROM - Respiratory Respiratory effort: normal Respiratory: bilateral: CTA - Cardiovascular Heart Sounds: Present: S1 & S2. Absent: rub, click - Extremities Extremities: pulses symmetrical, No edema Peripheral Pulses: within normal limits - Abdominal General gastrointestinal: Present: soft, non-tender, non-distended, normal bowel sounds Male genitourinary: Present: normal - Integumentary Integumentary: Present: clear, warm, dry - Musculoskeletal Musculoskeletal: gait normal, strength equal bilaterally - Psychiatric Psychiatric: appropriate mood/affect, intact judgment & insight - Neurologic Neurologic: CNII-XII intact, moves all extremities Plan Follow up with: PRIMARY CARE, [Primary Care Provider] - 3-5 Days Prescriptions: Albuterol INH(or & Nicu Only) [ProAir HFA Inhaler] 2 puff IH QID PRN #8.5 gram PRN Reason: Shortness Of Breath Metoprolol Succinate [Toprol Xl] 25 mg PO DAILY #30 tab.er.24h Torsemide 100 mg PO BID #60
[2019-10-17] MEDS ORDERED: TORSEMIDE 100 MG TAB PO SCH (10:00)
[2019-10-17] MEDS: HEPARIN 5,000 UNIT/1 ML VIAL SUB-Q SCH ×2 (11:03→21:50)
[2019-10-17] MEDS ORDERED: FUROSEMIDE 40 MG/4 ML INJ IV ONE (13:00)
--- NOTE | 2019-10-17 13:55 | Progress Note ---
Assessment and Plan Assessment and plan: 44-year-old man who presents to the hospital with shortness of breath and chest pain. Past medical history includes CHF EF 10% and hypertension. Labs show positive UDS with marijuana Heart Failure Continue IV diuresis, his meds were optimized. Acute respiratory failure ruled out, normal oxygenation ABG and O2 sats HIV Not compliance with medications, outpatient ID follow-up Nonadherence Preventative health counseling performed for 17 minutes DVT prophylaxis; early ambulation History Interval history: Review of systems Constitutional: No fevers, no malaise, no joint pains CVS: No chest pain, he still complaining of orthopnea GI: No abdominal pain, no diarrhea, no vomiting, no constipation Respiratory: , no wheezing, no coughing Hospitalist Physical - Physical exam Narrative exam: General.: Appears well, no distress, nontoxic HEENT: Moist mucous membranes, extraocular muscles intact, no lymphadenopathy Neck: supple Cardiac: S1-S2 heard Lungs: Bibasilar crackles Abdomen: soft , nontender, nondistended, bowel sounds positive Extremities: no edema clubbing or cyanosis Skin: no rash or lesions Neurologic: no gross focal deficits Psych: calm, and cooperative - Constitutional Vitals: Temp Pulse Resp BP Pulse Ox 97.3 F L 91 H 18 115/86 95 10/17/19 12:50 10/17/19 12:50 10/17/19 12:50 10/17/19 12:50 10/17/19 12:50 General appearance: Present: no acute distress, well-nourished Results - Labs CBC & Chem 7: 10/16/19 10:07 10/16/19 10:07 Labs: Laboratory Last Values WBC 4.0 K/mm3 (4.5-11.0) L 10/16/19 10:07 RBC 4.27 M/mm3 (3.65-5.03) 10/16/19 10:07 Hgb 13.4 gm/dl (11.8-15.2) 10/16/19 10:07 Hct 40.2 % (35.5-45.6) 10/16/19 10:07 MCV 94 fl (84-94) 10/16/19 10:07 MCH 31 pg (28-32) 10/16/19 10:07 MCHC 33 % (32-34) 10/16/19 10:07 RDW 15.5 % (13.2-15.2) H 10/16/19 10:07 Plt Count 223 K/mm3 (140-440) 10/16/19 10:07 Lymph % (Auto) 29.0 % (13.4-35.0) 10/16/19 10:07 [place] % (Auto) 5.8 % (0.0-7.3) 10/16/19 10:07 Eos % (Auto) 1.3 % (0.0-4.3) 10/16/19 10:07 Baso % (Auto) 1.4 % (0.0-1.8) 10/16/19 10:07 Lymph # 1.2 K/mm3 (1.2-5.4) 10/16/19 10:07 [place] # 0.2 K/mm3 (0.0-0.8) 10/16/19 10:07 Eos # 0.1 K/mm3 (0.0-0.4) 10/16/19 10:07 Baso # 0.1 K/mm3 (0.0-0.1) 10/16/19 10:07 Seg Neutrophils % 62.5 % (40.0-70.0) 10/16/19 10:07 Seg Neutrophils # 2.5 K/mm3 (1.8-7.7) 10/16/19 10:07 PT 15.5 Sec. (12.2-14.9) H 10/16/19 10:32 INR 1.21 (0.87-1.13) H 10/16/19 10:32 APTT 35.3 Sec. (24.2-36.6) 10/16/19 10:32 D-Dimer 516.76 ng/mlDDU (0-234) H 10/16/19 10:32 ABG pH 7.423 pH Units (7.350-7.450) 10/16/19 11:45 ABG pCO2 36.0 mm Hg 10/16/19 11:45 ABG pO2 55.9 mm Hg (80.0-90.0) L 10/16/19 11:45 ABG HCO3 23.0 mmol/L (20.0-26.0) 10/16/19 11:45 ABG O2 Saturation 89.2 % (95.0-99.0) L 10/16/19 11:45 ABG O2 Content 16.4 (0.0-44) 10/16/19 11:45 ABG Base Excess -1.0 mmol/L (-2.0-3.0) 10/16/19 11:45 ABG Hemoglobin 13.4 gm/dl (14.0-18.0) L 10/16/19 11:45 ABG Carboxyhemoglobin 2.1 % (0.0-5.0) 10/16/19 11:45 ABG Methemoglobin 0.5 % (0.0-1.5) 10/16/19 11:45 Oxyhemoglobin 86.8 % (95.0-99.0) L 10/16/19 11:45 FiO2 32 % 10/16/19 11:45 Sodium 138 mmol/L (137-145) 10/16/19 10:07 Potassium 3.7 mmol/L (3.6-5.0) 10/16/19 10:07 Chloride 101.6 mmol/L (98-107) 10/16/19 10:07 Carbon Dioxide 19 mmol/L (22-30) L 10/16/19 10:07 Anion Gap 21 mmol/L 10/16/19 10:07 BUN 25 mg/dL (9-20) H 10/16/19 10:07 Creatinine 1.1 mg/dL (0.8-1.5) 10/16/19 10:07 Estimated GFR > 60 ml/min 10/16/19 10:07 BUN/Creatinine Ratio 23 % 10/16/19 10:07 Glucose 104 mg/dL (75-100) H 10/16/19 10:07 Calcium 9.3 mg/dL (8.4-10.2) 10/16/19 10:07 Magnesium 2.00 mg/dL (1.7-2.3) 10/16/19 16:50 Total Bilirubin 1.00 mg/dL (0.1-1.2) 10/16/19 10:32 Direct Bilirubin 0.4 mg/dL (0-0.2) H 10/16/19 10:32 Indirect Bilirubin 0.6 mg/dL 10/16/19 10:32 AST 28 units/L (5-40) 10/16/19 10:32 ALT 16 units/L (7-56) 10/16/19 10:32 Alkaline Phosphatase 86 units/L (35-129) 10/16/19 10:32 Total Creatine Kinase 405 units/L (55-170) H 10/16/19 10:32 CK-MB (CK-2) 3.2 ng/mL (0.0-4.0) 10/16/19 10:32 CK-MB (CK-2) Rel Index 0.7 (0-4) 10/16/19 10:32 Troponin T 0.017 ng/mL (0.00-0.029) 10/16/19 16:50 NT-Pro-B Natriuret Pep 4791 pg/mL (0-450) H 10/16/19 10:07 Total Protein 8.0 g/dL (6.3-8.2) 10/16/19 10:32 Albumin 3.7 g/dL (3.9-5) L 10/16/19 10:32 Albumin/Globulin Ratio 0.9 % 10/16/19 10:32 TSH 1.540 mlU/mL (0.270-4.200) 10/16/19 16:50 Free T4 1.23 ng/dL (0.76-1.46) 10/16/19 16:50 Urine Color Yellow (Yellow) 10/16/19 10:52 Urine Turbidity Clear (Clear) 10/16/19 10:52 Urine pH 5.0 (5.0-7.0) 10/16/19 10:52 Ur Specific Reese 1.015 (1.003-1.030) 10/16/19 10:52 Urine Protein 30 mg/dl mg/dL (Negative) 10/16/19 10:52 Urine Glucose (UA) Neg mg/dL (Negative) 10/16/19 10:52 Urine Ketones Neg mg/dL (Negative) 10/16/19 10:52 Urine Blood Neg (Negative) 10/16/19 10:52 Urine Nitrite Neg (Negative) 10/16/19 10:52 Urine Bilirubin Neg (Negative) 10/16/19 10:52 Urine Urobilinogen < 2.0 mg/dL (<2.0) 10/16/19 10:52 Ur Leukocyte Esterase Neg (Negative) 10/16/19 10:52 Urine WBC (Auto) < 1.0 /HPF (0.0-6.0) 10/16/19 10:52 Urine RBC (Auto) 2.0 /HPF (0.0-6.0) 10/16/19 10:52 Urine Mucus Few /HPF 10/16/19 10:52 Urine Opiates Screen Presumptive negative 10/16/19 10:52 Urine Methadone Screen Presumptive negative 10/16/19 10:52 Ur Barbiturates Screen Presumptive negative 10/16/19 10:52 Ur Phencyclidine Scrn Presumptive negative 10/16/19 10:52 Ur Amphetamines Screen Presumptive negative 10/16/19 10:52 U Benzodiazepines Scrn Presumptive negative 10/16/19 10:52 Urine Cocaine Screen Presumptive negative 10/16/19 10:52 U Marijuana (THC) Screen Presumptive positive 10/16/19 10:52 Drugs of Abuse Note Disclamer 10/16/19 10:52 Active Medications - Current Medications Current Medications: Generic Name Dose Route Start Last Admin Trade Name Freq PRN Reason Stop Dose Admin Acetaminophen 650 mg 10/16/19 13:45 Tylenol PO Q4H PRN Pain MILD(1-3)/Fever >100.5/PEACOCK Benzonatate 100 mg 10/17/19 06:00 10/17/19 05:37 Tessalon Perles PO 100 mg Q8HR CESAR Administration Furosemide 40 mg 10/18/19 00:00 Lasix IV Q12H CESAR Heparin Sodium (Porcine) 5,000 unit 10/16/19 22:00 10/17/19 11:03 Heparin SUB-Q 5,000 unit Q12HR CESAR Administration Lidocaine 1 each 10/17/19 15:00 Lidoderm 5% TD QDAY CESAR Lorazepam 0.5 mg 10/17/19 02:36 10/17/19 03:04 Ativan PO 0.5 mg QHS CESAR Administration Ondansetron HCl 4 mg 10/16/19 13:45 10/16/19 18:42 Zofran IV 4 mg Q8H PRN Administration Nausea And Vomiting Sodium Chloride 10 ml 10/16/19 22:00 10/17/19 11:03 Sodium Chloride Flush Syringe 10 Ml IV 10 ml BID CESAR Administration Sodium Chloride 10 ml 10/16/19 13:45 Sodium Chloride Flush Syringe 10 Ml IV PRN PRN LINE FLUSH
[2019-10-17] MEDS: METOPROLOL SUCCINATE XL 25 MG TAB PO SCH (15:37)
[2019-10-17] MEDS: LIDOCAINE 5% 1 EACH PATCH TD SCH (15:37)
[2019-10-18] MEDS: oxyCODONE /ACETAMINOPHEN 5-325MG TAB PO PRN ×4 (00:11→17:55)
[2019-10-18] MEDS: BENZONATATE 100 MG CAP PO SCH ×3 (05:25→21:56)
[2019-10-18] MEDS: LIDOCAINE 5% 1 EACH PATCH TD SCH (09:26)
[2019-10-18] MEDS: HEPARIN 5,000 UNIT/1 ML VIAL SUB-Q SCH ×2 (09:26→21:56)
[2019-10-18] MEDS: METOPROLOL SUCCINATE XL 25 MG TAB PO SCH (09:27)
[2019-10-18] MEDS ORDERED: SPIRONOLACTONE 50 MG TAB PO SCH (10:00)
[2019-10-18] MEDS ORDERED: metOLazone 2.5 MG TAB PO SCH (10:00)
[2019-10-18 11:12] LABS: Calcium 9.2 mg/dL (8.4-10.2)
--- NOTE | 2019-10-18 11:16 | XRay Report ---
CHEST 2 VIEWS 1059 INDICATION / CLINICAL INFORMATION: cough COMPARISON: 10/16/2019 FINDINGS: SUPPORT DEVICES: None. HEART / MEDIASTINUM: Prominent cardiomegaly LUNGS / PLEURA: Minimal atelectasis or scarring is seen in the left midlung laterally. No definite ar eas of consolidation are seen. Pulmonary vascularity appears within normal limits. No pneumothorax. ADDITIONAL FINDINGS: No significant additional findings. IMPRESSION: No significant acute abnormality Signer Name: James Queen MD Signed: 10/18/2019 11:11 AM Workstation Name: [id number]
--- NOTE | 2019-10-18 11:55 | Progress Note ---
Assessment and Plan 44yo AAM: 1. Severe NICM (ef~10%) with ac HFrEF * ? etiology ? due to HIV * cxr today unremarkable, may be near euvolemia although only - 540cc yesterday * ct chest on admission revealed ? lung consolidation * recheck tte * not on umair/arb, hold lasix/zaroxyln today today 2. h/o cad/pci 3. NAZ - ? cardiorenal syndrome with worsening metabolic acidemia * cr - 1.9 today * recommend nephrology consult today * consider gentle IVF 4. HIV 5. sTHN 6. Mixed hyperlipidemia 7. h/p medication noncompliance Critically ill - will follow. My findings and plan of care d/w pt at length Discussed with Dr. Graham - Patient Problems (1) CHF exacerbation Current Visit: Yes Status: Acute Qualifiers: Heart failure type: unspecified Qualified Code(s): I50.9 - Heart failure, unspecified Plan to address problem: >45 min spent in the care of this pt (2) HIV infection Current Visit: Yes Status: Acute Qualifiers: HIV symptom status: unspecified Qualified Code(s): B20 - Human immunodeficiency virus [HIV] disease (3) Hypoxia Current Visit: Yes Status: Acute (4) Noncompliance Current Visit: Yes Status: Acute (5) Noncompliance with medication regimen Current Visit: Yes Status: Acute (6) Shortness of breath Current Visit: Yes Status: Acute (7) Acute CHF Current Visit: No Status: Acute Qualifiers: Heart failure type: systolic Qualified Code(s): I50.21 - Acute systolic (congestive) heart failure (8) Noncompliance Current Visit: No Status: Acute Subjective Date of service: 10/18/19 Interval history: feels the same mildly sob tired Objective Vital Signs Temp Pulse Pulse Resp BP Pulse Ox 10/18/19 09:15 98 10/18/19 06:00 97.6 F 66 16 118/88 98 10/17/19 22:44 97.8 F 90 18 130/90 99 10/17/19 19:54 97 10/17/19 15:37 69 129/94 10/17/19 15:35 97.6 F 69 20 129/94 92 10/17/19 13:00 95 H 10/17/19 12:50 97.3 F L 91 H 18 115/86 95 - Labs and Meds Comprehensive Metabolic Panel 10/18/19 Range/Units 10:06 Sodium 131 L D (137-145) mmol/L Potassium 3.8 (3.6-5.0) mmol/L Chloride 92.6 L (98-107) mmol/L Carbon Dioxide 17 L (22-30) mmol/L BUN 33 H (9-20) mg/dL Creatinine 1.9 H D (0.8-1.5) mg/dL Glucose 161 H (75-100) mg/dL Calcium 9.2 (8.4-10.2) mg/dL
[2019-10-18] MEDS ORDERED: FUROSEMIDE 40 MG/4 ML INJ IV SCH ×2 (12:00)
[2019-10-18] MEDS: guaiFENesin/CODEINE 100-10MG ORAL LIQD 5 ML PO PRN ×3 (12:24→20:42)
--- NOTE | 2019-10-18 14:13 | Progress Note ---
Assessment and Plan Assessment and plan: 44-year-old man who presents to the hospital with shortness of breath and chest pain. Past medical history includes CHF EF 10% and hypertension. Labs show positive UDS with marijuana Acute on chronic systolic heart Failure, EF 10% Diuresis on hold due to renal failure, nephrology consulted. Cardiology input appreciated May need dialysis versus Lasix drip. Will wait on nephrology decision. Acute kidney injury likely due to vasomotor nephropathy with metabolic acidosis Obtain urine studies, nephrology consult, renal ultrasound. Diuretics on hold Acute respiratory failure ruled out, normal oxygenation ABG and O2 sats HIV Not compliance with medications, outpatient ID follow-up Nonadherence Preventative health counseling performed for 17 minutes DVT prophylaxis; early ambulation History Interval history: Review of systems Constitutional: No fevers, no malaise, no joint pains CVS: No chest pain, he still complaining of orthopnea which is not improved. He relates that he is coughing up pink frothy sputum GI: No abdominal pain, no diarrhea, no vomiting, no constipation Respiratory: , no wheezing, Hospitalist Physical - Physical exam Narrative exam: General.: Moderate distress HEENT: Moist mucous membranes, extraocular muscles intact, no lymphadenopathy Neck: supple Cardiac: S1-S2 heard Lungs: Decreased air entry in bases Abdomen: soft , nontender, nondistended, bowel sounds positive Extremities: no edema clubbing or cyanosis Skin: no rash or lesions Neurologic: no gross focal deficits Psych: calm, and cooperative - Constitutional Vitals: Temp Pulse Resp BP Pulse Ox 97.6 F 95 H 18 114/76 97 10/18/19 12:02 10/18/19 12:02 10/18/19 12:02 10/18/19 12:02 10/18/19 12:02 General appearance: Present: no acute distress, well-nourished Results - Labs CBC & Chem 7: 10/16/19 10:07 10/18/19 10:06 Labs: Laboratory Last Values WBC 4.0 K/mm3 (4.5-11.0) L 10/16/19 10:07 RBC 4.27 M/mm3 (3.65-5.03) 10/16/19 10:07 Hgb 13.4 gm/dl (11.8-15.2) 10/16/19 10:07 Hct 40.2 % (35.5-45.6) 10/16/19 10:07 MCV 94 fl (84-94) 10/16/19 10:07 MCH 31 pg (28-32) 10/16/19 10:07 MCHC 33 % (32-34) 10/16/19 10:07 RDW 15.5 % (13.2-15.2) H 10/16/19 10:07 Plt Count 223 K/mm3 (140-440) 10/16/19 10:07 Lymph % (Auto) 29.0 % (13.4-35.0) 10/16/19 10:07 Castro % (Auto) 5.8 % (0.0-7.3) 10/16/19 10:07 Eos % (Auto) 1.3 % (0.0-4.3) 10/16/19 10:07 Baso % (Auto) 1.4 % (0.0-1.8) 10/16/19 10:07 Lymph # 1.2 K/mm3 (1.2-5.4) 10/16/19 10:07 Castro # 0.2 K/mm3 (0.0-0.8) 10/16/19 10:07 Eos # 0.1 K/mm3 (0.0-0.4) 10/16/19 10:07 Baso # 0.1 K/mm3 (0.0-0.1) 10/16/19 10:07 Seg Neutrophils % 62.5 % (40.0-70.0) 10/16/19 10:07 Seg Neutrophils # 2.5 K/mm3 (1.8-7.7) 10/16/19 10:07 PT 15.5 Sec. (12.2-14.9) H 10/16/19 10:32 INR 1.21 (0.87-1.13) H 10/16/19 10:32 APTT 35.3 Sec. (24.2-36.6) 10/16/19 10:32 D-Dimer 516.76 ng/mlDDU (0-234) H 10/16/19 10:32 ABG pH 7.423 pH Units (7.350-7.450) 10/16/19 11:45 ABG pCO2 36.0 mm Hg 10/16/19 11:45 ABG pO2 55.9 mm Hg (80.0-90.0) L 10/16/19 11:45 ABG HCO3 23.0 mmol/L (20.0-26.0) 10/16/19 11:45 ABG O2 Saturation 89.2 % (95.0-99.0) L 10/16/19 11:45 ABG O2 Content 16.4 (0.0-44) 10/16/19 11:45 ABG Base Excess -1.0 mmol/L (-2.0-3.0) 10/16/19 11:45 ABG Hemoglobin 13.4 gm/dl (14.0-18.0) L 10/16/19 11:45 ABG Carboxyhemoglobin 2.1 % (0.0-5.0) 10/16/19 11:45 ABG Methemoglobin 0.5 % (0.0-1.5) 10/16/19 11:45 Oxyhemoglobin 86.8 % (95.0-99.0) L 10/16/19 11:45 FiO2 32 % 10/16/19 11:45 Sodium 131 mmol/L (137-145) L D 10/18/19 10:06 Potassium 3.8 mmol/L (3.6-5.0) 10/18/19 10:06 Chloride 92.6 mmol/L (98-107) L 10/18/19 10:06 Carbon Dioxide 17 mmol/L (22-30) L 10/18/19 10:06 Anion Gap 25 mmol/L 10/18/19 10:06 BUN 33 mg/dL (9-20) H 10/18/19 10:06 Creatinine 1.9 mg/dL (0.8-1.5) H D 10/18/19 10:06 Estimated GFR 47 ml/min 10/18/19 10:06 BUN/Creatinine Ratio 17 % 10/18/19 10:06 Glucose 161 mg/dL (75-100) H 10/18/19 10:06 Calcium 9.2 mg/dL (8.4-10.2) 10/18/19 10:06 Magnesium 2.00 mg/dL (1.7-2.3) 10/16/19 16:50 Total Bilirubin 1.00 mg/dL (0.1-1.2) 10/16/19 10:32 Direct Bilirubin 0.4 mg/dL (0-0.2) H 10/16/19 10:32 Indirect Bilirubin 0.6 mg/dL 10/16/19 10:32 AST 28 units/L (5-40) 10/16/19 10:32 ALT 16 units/L (7-56) 10/16/19 10:32 Alkaline Phosphatase 86 units/L (35-129) 10/16/19 10:32 Total Creatine Kinase 405 units/L (55-170) H 10/16/19 10:32 CK-MB (CK-2) 3.2 ng/mL (0.0-4.0) 10/16/19 10:32 CK-MB (CK-2) Rel Index 0.7 (0-4) 10/16/19 10:32 Troponin T 0.017 ng/mL (0.00-0.029) 10/16/19 16:50 NT-Pro-B Natriuret Pep 4791 pg/mL (0-450) H 10/16/19 10:07 Total Protein 8.0 g/dL (6.3-8.2) 10/16/19 10:32 Albumin 3.7 g/dL (3.9-5) L 10/16/19 10:32 Albumin/Globulin Ratio 0.9 % 10/16/19 10:32 TSH 1.540 mlU/mL (0.270-4.200) 10/16/19 16:50 Free T4 1.23 ng/dL (0.76-1.46) 10/16/19 16:50 Urine Color Yellow (Yellow) 10/16/19 10:52 Urine Turbidity Clear (Clear) 10/16/19 10:52 Urine pH 5.0 (5.0-7.0) 10/16/19 10:52 Ur Specific [place] 1.015 (1.003-1.030) 10/16/19 10:52 Urine Protein 30 mg/dl mg/dL (Negative) 10/16/19 10:52 Urine Glucose (UA) Neg mg/dL (Negative) 10/16/19 10:52 Urine Ketones Neg mg/dL (Negative) 10/16/19 10:52 Urine Blood Neg (Negative) 10/16/19 10:52 Urine Nitrite Neg (Negative) 10/16/19 10:52 Urine Bilirubin Neg (Negative) 10/16/19 10:52 Urine Urobilinogen < 2.0 mg/dL (<2.0) 10/16/19 10:52 Ur Leukocyte Esterase Neg (Negative) 10/16/19 10:52 Urine WBC (Auto) < 1.0 /HPF (0.0-6.0) 10/16/19 10:52 Urine RBC (Auto) 2.0 /HPF (0.0-6.0) 10/16/19 10:52 Urine Mucus Few /HPF 10/16/19 10:52 Urine Opiates Screen Presumptive negative 10/16/19 10:52 Urine Methadone Screen Presumptive negative 10/16/19 10:52 Ur Barbiturates Screen Presumptive negative 10/16/19 10:52 Ur Phencyclidine Scrn Presumptive negative 10/16/19 10:52 Ur Amphetamines Screen Presumptive negative 10/16/19 10:52 U Benzodiazepines Scrn Presumptive negative 10/16/19 10:52 Urine Cocaine Screen Presumptive negative 10/16/19 10:52 U Marijuana (THC) Screen Presumptive positive 10/16/19 10:52 Drugs of Abuse Note Disclamer 10/16/19 10:52 Active Medications - Current Medications Current Medications: Generic Name Dose Route Start Last Admin Trade Name Freq PRN Reason Stop Dose Admin Acetaminophen 650 mg 10/16/19 13:45 10/17/19 21:57 Tylenol PO 650 mg Q4H PRN Administration Pain MILD(1-3)/Fever >100.5/PEACOCK Benzonatate 100 mg 10/17/19 06:00 10/18/19 05:25 Tessalon Perles PO 100 mg Q8HR CESAR Administration Heparin Sodium (Porcine) 5,000 unit 10/16/19 22:00 10/18/19 09:26 Heparin SUB-Q 5,000 unit Q12HR CESAR Administration Lidocaine 1 each 10/17/19 15:00 10/18/19 09:26 Lidoderm 5% TD 1 each QDAY CESAR Administration Lorazepam 0.5 mg 10/17/19 02:36 10/17/19 21:50 Ativan PO 0.5 mg QHS CESAR Administration Metoprolol Succinate 25 mg 10/17/19 14:00 10/18/19 09:27 Metoprolol Xl PO 25 mg QDAY CESAR Administration Ondansetron HCl 4 mg 10/16/19 13:45 10/16/19 18:42 Zofran IV 4 mg Q8H PRN Administration Nausea And Vomiting Oxycodone/Acetaminophen 1 tab 10/18/19 00:00 10/18/19 12:24 Percocet 5/325 PO 1 tab Q6H PRN Administration Pain, Moderate (4-6) Pseudoephedrine/Acetam/Chlorphenir 20 ml 10/18/19 09:53 10/18/19 12:24 Robitussin Ac PO 20 ml Q4H PRN Administration Cough Sodium Chloride 10 ml 10/16/19 22:00 10/18/19 09:27 Sodium Chloride Flush Syringe 10 Ml IV 10 ml BID CESAR Administration Sodium Chloride 10 ml 10/16/19 13:45 Sodium Chloride Flush Syringe 10 Ml IV PRN PRN LINE FLUSH
[2019-10-18 19:08] LABS: Creatinine,Urine 315.9 mg/dL (0.1-20.0)
[2019-10-18] MEDS: LORazepam 0.5 MG TAB PO SCH (21:56)
[2019-10-19] MEDS: oxyCODONE /ACETAMINOPHEN 5-325MG TAB PO PRN ×3 (00:52→18:38)
[2019-10-19] MEDS: BENZONATATE 100 MG CAP PO SCH ×3 (06:05→21:56)
--- NOTE | 2019-10-19 08:43 | Consultation ---
History of Present Illness - Reason for Consult acute renal failure - History of Present Illness Percent, with also a history of hypertension, presented to the emergency department secondary to worsening shortness of breath and concentric possible heart failure exacerbation. Patient had CTA done secondary to aforementioned symptoms as well as an elevated d-dimer on initial laboratory studies. CTA didn't mention cardiomegaly and possible congestion. He was started on IV diuresis. Secondary to worsening renal function over the last 24 hours nephrology's consult for further evaluation. Lasix has been on hold at this time. Per patient he has never had any history of renal failure. Last chest x-ray reviewed did not show any significant signs of heart failure. He is pending a TTE this morning for further evaluation. Urinalysis was reviewed with evidence of proteinuria but no evidence of microscopic hematuria. Renal ultrasound has been done and is pending official review at this time. To note radiology on the CTA did note the possibility of pulmonary thromboembolism. Patient this morning was complaining of shortness of breath as well as episodes of hemoptysis. Past History Past Medical History: CAD, HIV/AIDS, hypertension, hyperlipidemia, other (See HPI) Past Surgical History: No surgical history Social history: single. denies: smoking, alcohol abuse, prescription drug abuse Family history: hypertension Medications and Allergies Allergies Allergy/AdvReac Type Severity Reaction Status Date / Time TL Inhibitors AdvReac Angioedema Verified 07/31/19 07:48 Home Medications Medication Instructions Recorded Confirmed Last Taken Type Albuterol INH(or & Nicu Only) 2 puff IH QID PRN #8.5 gram 10/17/19 Unknown Rx [ProAir HFA Inhaler] Metoprolol Succinate [Toprol Xl] 25 mg PO DAILY #30 tab.er.24h 10/17/19 Unknown Rx Torsemide 100 mg PO BID #60 10/17/19 Unknown Rx Active Meds: Active Medications Acetaminophen (Tylenol) 650 mg PO Q4H PRN PRN Reason: Pain MILD(1-3)/Fever >100.5/PEACOCK Last Admin: 10/17/19 21:57 Dose: 650 mg Documented by: Benzonatate (Tessalon Perles) 100 mg PO Q8HR [facility] Last Admin: 10/19/19 06:05 Dose: 100 mg Documented by: Heparin Sodium (Porcine) (Heparin) 5,000 unit SUB-Q Q12HR [facility] Last Admin: 10/18/19 21:56 Dose: 5,000 unit Documented by: Lidocaine (Lidoderm 5%) 1 each TD QDAY [facility] Last Admin: 10/18/19 09:26 Dose: 1 each Documented by: Lorazepam (Ativan) 0.5 mg PO QHS [facility] Last Admin: 10/18/19 21:56 Dose: 0.5 mg Documented by: Metoprolol Succinate (Metoprolol Xl) 25 mg PO QDAY [facility] Last Admin: 10/18/19 09:27 Dose: 25 mg Documented by: Ondansetron HCl (Zofran) 4 mg IV Q8H PRN PRN Reason: Nausea And Vomiting Last Admin: 10/16/19 18:42 Dose: 4 mg Documented by: Oxycodone/Acetaminophen (Percocet 5/325) 1 tab PO Q6H PRN PRN Reason: Pain, Moderate (4-6) Last Admin: 10/19/19 06:56 Dose: 1 tab Documented by: Pseudoephedrine/Acetam/Chlorphenir (Robitussin Ac) 20 ml PO Q4H PRN PRN Reason: Cough Last Admin: 10/18/19 20:42 Dose: 20 ml Documented by: Sodium Chloride (Sodium Chloride Flush Syringe 10 Ml) 10 ml IV BID [facility] Last Admin: 10/18/19 21:56 Dose: 10 ml Documented by: Sodium Chloride (Sodium Chloride Flush Syringe 10 Ml) 10 ml IV PRN PRN PRN Reason: LINE FLUSH Review of Systems All systems: negative Constitutional: fatigue, weakness Cardiovascular: shortness of breath, dyspnea on exertion Respiratory: hemoptysis Exam - Vital Signs Vital signs: Vital Signs Temp Pulse Resp BP Pulse Ox 98 F 80 18 118/91 99 10/16/19 09:10 10/16/19 09:10 10/16/19 09:10 10/16/19 09:10 10/16/19 09:10 - General Appearance General appearance: well-developed, well-nourished, appears stated age EENT: ATNC, PERRL Neck: Present: neck supple, trachea midline Respiratory: Clear to Ascultation Heart: regular, S1S2 Gastrointestinal: Present: normal, normoactive bowel sounds Integumentary: no rash, warm and dry Neurologic: no focal deficit, alert and oriented x3 Musculoskeletal: Present: deferred Psychiatric: mood/affect appropriate, cooperative Results - Lab Results 10/16/19 10:07 10/18/19 10:06 Most recent lab results ABG pH 7.423 pH Units (7.350-7.450) 10/16/19 11:45 ABG pCO2 36.0 mm Hg 10/16/19 11:45 ABG pO2 55.9 mm Hg (80.0-90.0) L 10/16/19 11:45 ABG HCO3 23.0 mmol/L (20.0-26.0) 10/16/19 11:45 ABG O2 Saturation 89.2 % (95.0-99.0) L 10/16/19 11:45 Calcium 9.2 mg/dL (8.4-10.2) 10/18/19 10:06 Magnesium 2.00 mg/dL (1.7-2.3) 10/16/19 16:50 Urine Creatinine 315.9 mg/dL (0.1-20.0) H 10/18/19 Unknown Urine Sodium 10 mmol/L 10/18/19 Unknown - Image Kidney/bladder ultrasound: pending Assessment and Plan - Patient Problems (1) Acute renal failure Current Visit: Yes Status: Acute Plan to address problem: Possibly in the setting of contrast-induced injury superimposed on prerenal acute kidney injury. We'll review findings of the TTE. Would recommend that if there is no acute evidence of volume overload to start patient on gentle IV fluid hydration. Would recommend starting at 75 mL an hour with careful monitoring of patient's respiratory and volume status given his history of ischemic cardiomyopathy. (2) Acute and chronic respiratory failure with hypoxia Current Visit: Yes Status: Acute Plan to address problem: Unclear etiology at this time for his acute respiratory failure. CTA chest x- rays were reviewed by myself. I did not see any obvious signs of volume ov erload. Unsure if he is really having a heart failure exacerbation at this time. He is however pending at TTE this morning which will give us more definitive information. If there is no acute volume overload or signs of heart failure exacerbation noted on TTE, I would recommend gentle IV fluid hydration as mentioned above. (3) Hemoptysis Current Visit: Yes Status: Acute Plan to address problem: Radiology did mention the possibility of a pulmonary thromboembolism on CTA. Patient did complain of hemoptysis this morning. Given the elevated d-dimer and symptomatology this may also be reasonable concern for why patient is short of breath. Further management per primary team. (4) Heart failure with reduced ejection fraction Current Visit: Yes Status: Chronic Plan to address problem: Pending echocardiogram today. We will follow-up results of the echocardiogram studies. On examination patient does not seem to be hypervolemic at this time. (5) Acidosis Current Visit: Yes Status: Acute Plan to address problem: In the setting of acute renal failure. We'll continue to monitor closely.
--- NOTE | 2019-10-19 09:05 | Ultrasound Report ---
ULTRASOUND RENAL INDICATION / CLINICAL INFORMATION: NAZ. COMPARISON: None available. FINDINGS: RIGHT KIDNEY: - Length = 11.4 cm. [Normal > 9.0 cm] - Parenchymal Thickness = 1.6 cm. [Normal > 1.5 cm] - Echogenicity: Normal -- hypoechoic or isoechoic to liver/spleen. - Hydronephrosis: None. - Cyst or mass: No significant abnormality. LEFT KIDNEY: - Length = 13.0 cm. [Normal > 9.0 cm] - Parenchymal Thickness = 1.9 cm. [Normal > 1.5 cm] - Echogenicity: Normal -- hypoechoic or isoechoic to liver/spleen. - Hydronephrosis: None. - Cyst or mass: No significant abnormality. URINARY BLADDER: No significant abnormality. ADDITIONAL FINDINGS: Small left pleural effusion. IMPRESSION: 1. No evidence of medical renal disease or hydronephrosis. 2. Small left pleural effusion. Renal Parenchymal Thickness Parenchyma = Cortex + Medullary Pyramid - Normal >= 1.5 cm - Mild thinning = 1.0-1.49 cm - Moderate thinning = 0.5-0.99 cm - Severe thinning < 0.5 cm Signer Name: Jasbir Sanford MD Signed: 10/19/2019 9:00 AM Workstation Name: [id number]
--- NOTE | 2019-10-19 09:50 | Progress Note ---
Assessment and Plan Acute on chronic HFrEF EF ~10% per pt report. Await echo. Cont Toprol XL. No ACEI/ARB in setting of ACEI allergy and renal i nsufficiency. Pt would benefit from diuresis (IV Bumex as he reports PO and IV lasix are not effective anymore) if okay per nephrology in setting of renal insufficiency. Initiate dobutamine gtt. NICMP EF ~10% per pt report. Await echo. Cont Toprol XL. No ACEI/ARB in setting of ACEI allergy and renal insufficiency. Pt would benefit from diuresis. Will defer diuresis to nephrology in setting of renal insufficiency. Initiate dobutamine gtt. CAD s/p PCI of RCA Done May 2019 in [place] per pt report. Resume home ASA 81 and brilinta. Initiate statin. Cont Toprol XL. Elevated DDimer / ? PE Chest CTA showed questionable minimal left lower lobe PTE of questionable clinical significance. Further eval/management per primary. Consider BLE studies to r/o DVT. Await TTE. NAZ on ? CKD ? Cardiorenal syndrome. Nephrology consultation pending. Monitor renal indices. HIV Noncompliant with medication regimen. OP ID follow up per primary team. HTN Stable. Cont Toprol XL. HLP Initiate statin. F/u lipid panel in AM. LBBB NSVT Longest run noted was 15 beats on 10/17/2019 @ ~ 5PM. Pt symptomatic. Cont Toprol XL. Monitor electrolytes. Consider LifeVest/AICD pending TTE results. ACEI Allergy Medical noncompliance H/o polysubstance abuse (tobacco, ETOH, cocaine, marijuana) The patient has been seen in conjunction with Dr. Alcaraz who agrees with the assessment and plan of care. Subjective Date of service: 10/19/19 Principal diagnosis: HF Interval history: pt resting in bed, c/o SOB, CORTEZ, orthopnea, trace BLE swelling and abdominal edema. tele reviewed - in SR with 5 beat NSVT noted overnight. Objective Last Vital Signs Temp 97.8 F 10/19/19 11:26 Pulse 89 10/19/19 11:27 Resp 16 10/19/19 11:24 BP 112/93 10/19/19 11:27 Pulse Ox 94 10/19/19 11:24 - Physical Examination General: No Apparent Distress HEENT: Positive: PERRL Neck: Positive: neck supple, trachea midline Cardiac: Positive: Reg Rate and Rhythm, S1/S2 Lungs: Positive: Decreased Breath Sounds Neuro: Positive: Grossly Intact Abdomen: Negative: Tender Skin: Negative: Rash Musculoskeletal: No Pain Extremities: Present: edema (trace BLE) - Labs and Meds Comprehensive Metabolic Panel 10/18/19 Range/Units 10:06 Sodium 131 L D (137-145) mmol/L Potassium 3.8 (3.6-5.0) mmol/L Chloride 92.6 L (98-107) mmol/L Carbon Dioxide 17 L (22-30) mmol/L BUN 33 H (9-20) mg/dL Creatinine 1.9 H D (0.8-1.5) mg/dL Glucose 161 H (75-100) mg/dL Calcium 9.2 (8.4-10.2) mg/dL - Imaging and Cardiology EKG: report reviewed, image reviewed Echo: pending - Telemetry EKG Rhythm: Sinus Rhythm
--- NOTE | 2019-10-19 10:30 | Nuclear Medicine Report ---
Ventilation perfusion scintigraphy Indication: sob, cough COMPARISON: Chest x-ray yesterday, CTA chest 10/16/2019 Ventilation study was performed with inhalation of 13.6 mCi of 133 Xenon aerosol. Perfusion study was performed with intravenous administration of 5.5 mCi of 99m technetium MAA. Ventilation findings: Decreased ventilation is seen laterally in the right base and in the mid to l ower left lateral lung field on equilibrium image. On washout there is prominent trapping in the mid to lower lung on the right and moderate trapping in these areas on the left. Perfusion findings: Enlarged heart causing impression on the left base. Mild decrease in perfusion la terally in the left mid to lower lung field corresponds to the ventilatory abnormality. Decreased per fusion in the right base matches the ventilatory abnormality. Anterior right-sided peripheral decreas ed perfusion in the right base corresponds to ventilatory abnormalities. Impression: There are significant ventilatory abnormalities and perfusion abnormalities are less obvi ous and appear to match. Findings do not exclude but give a low probability for pulmonary thromboembo lism. If there is continued clinical concern I would suggest repeating the CTA. Signer Name: James Queen MD Signed: 10/19/2019 10:25 AM Workstation Name: [id number]
--- NOTE | 2019-10-19 11:07 | Vascular Lab Report ---
DUPLEX DOPPLER LOWER EXTREMITY VEINS, BILATERAL INDICATION: Bilateral leg edema. Acute renal failure and HIV. TECHNIQUE: Duplex doppler imaging was performed through the veins of both lower extremities using venous juanita bren and other maneuvers. COMPARISON: None available. FINDINGS: Right Common femoral vein: Negative. Right Superficial femoral vein: Negative. Right Popliteal vein: Negative. Right Calf veins: Negative. Left Common femoral vein: Negative. Left Superficial femoral vein: Negative. Left Popliteal vein: Negative. Left Calf veins: Negative. Additional findings: There is no evidence of a popliteal cyst or other abnormality. IMPRESSION: No sonographic evidence for DVT in either lower extremity. Signer Name: Jasbir Sanford MD Signed: 10/19/2019 11:02 AM Workstation Name: [id number]
[2019-10-19] MEDS: guaiFENesin/CODEINE 100-10MG ORAL LIQD 5 ML PO PRN (11:23)
[2019-10-19] MEDS: METOPROLOL SUCCINATE XL 25 MG TAB PO SCH (11:27)
[2019-10-19] MEDS: LIDOCAINE 5% 1 EACH PATCH TD SCH (11:27)
[2019-10-19] MEDS: HEPARIN 5,000 UNIT/1 ML VIAL SUB-Q SCH ×2 (11:28→21:56)
[2019-10-19] MEDS: ASPIRIN 81 MG TAB CHEW PO SCH (13:05)
[2019-10-19] MEDS: TICAGRELOR 90 MG TAB PO SCH ×2 (13:21→21:57)
[2019-10-19 13:41] LABS: Calcium 9.3 mg/dL (8.4-10.2)
--- NOTE | 2019-10-19 14:12 | Consultation ---
History of Present Illness - Reason for Consult Consult date: 10/19/19 HIV, hemoptysis Requesting physician: MARCI RUSSO - History of Present Illness The patient is a 44-year-old male with HIV, has been noncompliant with his medications, coronary artery disease, congestive heart failure and was admitted to the hospital with shortness of breath and heart failure. He was started on diuretics. He also had a CT chest with contrast to rule out pulmonary embolism. Patient's breathing has been slowly improving however he developed acute kidney injury likely secondary to a combination of above. Due to his non-compliant HIV status, infectious diseases was consulted. Patient reports a diagnosis of HIV many years ago sometime in the and reports he has not been on medications for many years, probably more than 5-10 years. He is not sure if he is interested in starting medications. He states he that he thinks it may be time for him to get back on the meds and will think about it. Review of Systems: General: no fevers,chills or rigors HEENT: no new visual disturbance Respiratory: hemoptysis on admission with shortness of breath Cardiovascular: No chest pain, syncope Gastrointestinal: No nausea, vomiting or diarrhea Genitourinary: No dysuria or hematuria Musculoskeletal: No new or worsening neck pain or back pain Neurologic: No headaches, seizures Hematologic: No easy bruising or bleeding Endocrine: No night sweats or acute weight loss Skin: negative for rash, jaundice Psychiatric: No suicidal or homicidal ideation Past History Past Medical History: CAD, HIV/AIDS, hypertension, hyperlipidemia, other (See HPI) Past Surgical History: No surgical history Social history: single. denies: smoking, alcohol abuse, prescription drug abuse Family history: hypertension Medications and Allergies Allergies Allergy/AdvReac Type Severity Reaction Status Date / Time TL Inhibitors AdvReac Angioedema Verified 07/31/19 07:48 Home Medications Medication Instructions Recorded Confirmed Last Taken Type Albuterol INH(or & Nicu Only) 2 puff IH QID PRN #8.5 gram 10/17/19 Unknown Rx [ProAir HFA Inhaler] Metoprolol Succinate [Toprol Xl] 25 mg PO DAILY #30 tab.er.24h 10/17/19 Unknown Rx Torsemide 100 mg PO BID #60 10/17/19 Unknown Rx Active Meds: Active Medications Acetaminophen (Tylenol) 650 mg PO Q4H PRN PRN Reason: Pain MILD(1-3)/Fever >100.5/PEACOCK Last Admin: 10/17/19 21:57 Dose: 650 mg Documented by: Aspirin (Baby Aspirin) 81 mg PO QDAY [facility] Last Admin: 10/19/19 13:05 Dose: 81 mg Documented by: Atorvastatin Calcium (Lipitor) 20 mg PO QHS [facility] Benzonatate (Tessalon Perles) 100 mg PO Q8HR [facility] Last Admin: 10/19/19 13:05 Dose: 100 mg Documented by: Heparin Sodium (Porcine) (Heparin) 5,000 unit SUB-Q Q12HR [facility] Last Admin: 10/19/19 11:28 Dose: 5,000 unit Documented by: Lidocaine (Lidoderm 5%) 1 each TD QDAY [facility] Last Admin: 10/19/19 11:27 Dose: 1 each Documented by: Lorazepam (Ativan) 0.5 mg PO QHS [facility] Last Admin: 10/18/19 21:56 Dose: 0.5 mg Documented by: Metoprolol Succinate (Metoprolol Xl) 25 mg PO QDAY [facility] Last Admin: 10/19/19 11:27 Dose: 25 mg Documented by: Ondansetron HCl (Zofran) 4 mg IV Q8H PRN PRN Reason: Nausea And Vomiting Last Admin: 10/16/19 18:42 Dose: 4 mg Documented by: Oxycodone/Acetaminophen (Percocet 5/325) 1 tab PO Q6H PRN PRN Reason: Pain, Moderate (4-6) Last Admin: 10/19/19 06:56 Dose: 1 tab Documented by: Pseudoephedrine/Acetam/Chlorphenir (Robitussin Ac) 20 ml PO Q4H PRN PRN Reason: Cough Last Admin: 10/19/19 11:23 Dose: 20 ml Documented by: Sodium Chloride (Sodium Chloride Flush Syringe 10 Ml) 10 ml IV BID [facility] Last Admin: 10/19/19 11:28 Dose: 10 ml Documented by: Sodium Chloride (Sodium Chloride Flush Syringe 10 Ml) 10 ml IV PRN PRN PRN Reason: LINE FLUSH Ticagrelor (Brilinta) 90 mg PO BID [facility] Last Admin: 10/19/19 13:21 Dose: 90 mg Documented by: Physical Examination - Physical Exam Narrative exam: Physical Exam: Constitutional: Alert, cooperative. No acute distress Head, Ears, Nose: Normocephalic, atraumatic. External ears, nose normal Eyes: Conjunctivae/corneas clear. No icterus. No ptosis. Neck: Supple, no meningeal signs Cardiovascular: S1, S2 normal. Respiratory: b/l basal crackles GI: Soft, non-tender; bowel sounds normal. No peritoneal signs Musculoskeletal: No pedal edema, no cyanosis. Skin: No rash or abscess Hem/Lymphatic: No palpable cervical or supraclavicular nodes. No lymphangitis Psych: Mood ok. Affect normal Neurological: Awake, alert, oriented. No gross abnormality - Constitutional Vitals: Vital Signs Temp Pulse Resp BP Pulse Ox 97.8 F 89 16 112/93 94 10/19/19 11:26 10/19/19 11:27 10/19/19 11:24 10/19/19 11:27 10/19/19 11:24 Temperature -Last 24 Hours Temperature 97.8 F Temperature 98.5 F Temperature 97.3 F Temperature 97.3 F Temperature 98.1 F Results - Labs CBC & Chem 7: 10/16/19 10:07 10/19/19 12:50 Labs: Abnormal lab results 10/18/19 10/19/19 Range/Units Unknown 12:50 Sodium 127 L (137-145) mmol/L Chloride 87.3 L (98-107) mmol/L Carbon Dioxide 18 L (22-30) mmol/L BUN 47 H (9-20) mg/dL Creatinine 2.1 H (0.8-1.5) mg/dL Glucose 114 H (75-100) mg/dL Urine Creatinine 315.9 H (0.1-20.0) mg/dL - Imaging and Cardiology Chest x-ray: report reviewed, image reviewed (cardiomegaly) CT scan - chest: report reviewed, image reviewed Assessment and Plan A/P: 44-year-old male with HIV, has been noncompliant with his medications, coronary artery disease, congestive heart failure: #HIV, possibly AIDS: uncontrolled, non compliant with meds for many years. #Leucopenia: probably from above. #Acute CHF: hemoptysis probably from pulmonary edema. No lesions seen on CT. #NAZ: nephrology following. Recs: -patient unsure if he wants to start HIV meds, thinks he is already taking too many meds. Counselled about his likely AIDS diagnosis and importance of starting meds SHONNA. I gave him my clinic information, he thinks he cannot get a ride there. He states [facility] much closer for him and he would prefer to go there. If he changes his mind, he can call and make an appointment with me. -PO Atovaquone 1500 mg daily as PCP prophylaxis (avoiding Bactrim due to renal issues) Will sign off. Please call with questions. Erlin Walsh MD, FACP [facility] ([facility] C: [phone] O: [phone] F: [phone]
--- NOTE | 2019-10-19 14:26 | Progress Note ---
Assessment and Plan Assessment and plan: 44-year-old man who presents to the hospital with shortness of breath and chest pain. Past medical history includes CHF EF 10% and hypertension. Labs show positive UDS with marijuana Acute on chronic systolic heart Failure, EF 10% Diuresis on hold due to renal failure, nephrology consulted. Cardiology input appreciated No TL inhibitor due to history of TL related angioedema. Beta-juanito, may need LifeVest -We will discuss with cardiology, patient may benefit from dobutamine versus milrinone. As patient is having oliguric cardiorenal syndrome. Shortness of breath/orthopnea CTA negative, lower extremity Doppler negative, VQ scan negative. Repeat chest x-ray today. Oliguric acute kidney injury likely due to cardiorenal syndrome, vasomotor nephropathy and contrast nephropathy nephrology consult appreciated, renal ultrasound no acute findings. Diuretics on hold, gentle hydration Acute respiratory failure ruled out, normal oxygenation ABG and O2 sats HIV Not compliance with medications, outpatient ID follow-up PO Atovaquone 1500 mg daily as PCP prophylaxis, avoid Bactrim due to renal failure Nonadherence Preventative health counseling performed for 17 minutes DVT prophylaxis; early ambulation History Interval history: Review of systems Constitutional: No fevers, no malaise, no joint pains CVS: No chest pain, he still complaining of orthopnea which is not improved. He relates that he is coughing up pink frothy sputum GI: No abdominal pain, no diarrhea, no vomiting, no constipation Respiratory: , no wheezing, Hospitalist Physical - Physical exam Narrative exam: General.: Moderate distress HEENT: Moist mucous membranes, extraocular muscles intact, no lymphadenopathy Neck: supple Cardiac: S1-S2 heard Lungs: Decreased air entry in bases Abdomen: soft , nontender, nondistended, bowel sounds positive Extremities: no edema clubbing or cyanosis Skin: no rash or lesions Neurologic: no gross focal deficits Psych: calm, and cooperative - Constitutional Vitals: Temp Pulse Resp BP Pulse Ox 97.8 F 89 16 112/93 94 10/19/19 11:26 10/19/19 11:27 10/19/19 11:24 10/19/19 11:27 10/19/19 11:24 General appearance: Present: no acute distress, well-nourished Results - Labs CBC & Chem 7: 10/16/19 10:07 10/19/19 12:50 Labs: Laboratory Last Values WBC 4.0 K/mm3 (4.5-11.0) L 10/16/19 10:07 RBC 4.27 M/mm3 (3.65-5.03) 10/16/19 10:07 Hgb 13.4 gm/dl (11.8-15.2) 10/16/19 10:07 Hct 40.2 % (35.5-45.6) 10/16/19 10:07 MCV 94 fl (84-94) 10/16/19 10:07 MCH 31 pg (28-32) 10/16/19 10:07 MCHC 33 % (32-34) 10/16/19 10:07 RDW 15.5 % (13.2-15.2) H 10/16/19 10:07 Plt Count 223 K/mm3 (140-440) 10/16/19 10:07 Lymph % (Auto) 29.0 % (13.4-35.0) 10/16/19 10:07 [place] % (Auto) 5.8 % (0.0-7.3) 10/16/19 10:07 Eos % (Auto) 1.3 % (0.0-4.3) 10/16/19 10:07 Baso % (Auto) 1.4 % (0.0-1.8) 10/16/19 10:07 Lymph # 1.2 K/mm3 (1.2-5.4) 10/16/19 10:07 [place] # 0.2 K/mm3 (0.0-0.8) 10/16/19 10:07 Eos # 0.1 K/mm3 (0.0-0.4) 10/16/19 10:07 Baso # 0.1 K/mm3 (0.0-0.1) 10/16/19 10:07 Seg Neutrophils % 62.5 % (40.0-70.0) 10/16/19 10:07 Seg Neutrophils # 2.5 K/mm3 (1.8-7.7) 10/16/19 10:07 PT 15.5 Sec. (12.2-14.9) H 10/16/19 10:32 INR 1.21 (0.87-1.13) H 10/16/19 10:32 APTT 35.3 Sec. (24.2-36.6) 10/16/19 10:32 D-Dimer 516.76 ng/mlDDU (0-234) H 10/16/19 10:32 ABG pH 7.423 pH Units (7.350-7.450) 10/16/19 11:45 ABG pCO2 36.0 mm Hg 10/16/19 11:45 ABG pO2 55.9 mm Hg (80.0-90.0) L 10/16/19 11:45 ABG HCO3 23.0 mmol/L (20.0-26.0) 10/16/19 11:45 ABG O2 Saturation 89.2 % (95.0-99.0) L 10/16/19 11:45 ABG O2 Content 16.4 (0.0-44) 10/16/19 11:45 ABG Base Excess -1.0 mmol/L (-2.0-3.0) 10/16/19 11:45 ABG Hemoglobin 13.4 gm/dl (14.0-18.0) L 10/16/19 11:45 ABG Carboxyhemoglobin 2.1 % (0.0-5.0) 10/16/19 11:45 ABG Methemoglobin 0.5 % (0.0-1.5) 10/16/19 11:45 Oxyhemoglobin 86.8 % (95.0-99.0) L 10/16/19 11:45 FiO2 32 % 10/16/19 11:45 Sodium 127 mmol/L (137-145) L 10/19/19 12:50 Potassium 3.8 mmol/L (3.6-5.0) 10/19/19 12:50 Chloride 87.3 mmol/L (98-107) L 10/19/19 12:50 Carbon Dioxide 18 mmol/L (22-30) L 10/19/19 12:50 Anion Gap 26 mmol/L 10/19/19 12:50 BUN 47 mg/dL (9-20) H 10/19/19 12:50 Creatinine 2.1 mg/dL (0.8-1.5) H 10/19/19 12:50 Estimated GFR 42 ml/min 10/19/19 12:50 BUN/Creatinine Ratio 22 % 10/19/19 12:50 Glucose 114 mg/dL (75-100) H 10/19/19 12:50 Calcium 9.3 mg/dL (8.4-10.2) 10/19/19 12:50 Magnesium 2.00 mg/dL (1.7-2.3) 10/16/19 16:50 Total Bilirubin 1.00 mg/dL (0.1-1.2) 10/16/19 10:32 Direct Bilirubin 0.4 mg/dL (0-0.2) H 10/16/19 10:32 Indirect Bilirubin 0.6 mg/dL 10/16/19 10:32 AST 28 units/L (5-40) 10/16/19 10:32 ALT 16 units/L (7-56) 10/16/19 10:32 Alkaline Phosphatase 86 units/L (35-129) 10/16/19 10:32 Total Creatine Kinase 405 units/L (55-170) H 10/16/19 10:32 CK-MB (CK-2) 3.2 ng/mL (0.0-4.0) 10/16/19 10:32 CK-MB (CK-2) Rel Index 0.7 (0-4) 10/16/19 10:32 Troponin T 0.017 ng/mL (0.00-0.029) 10/16/19 16:50 NT-Pro-B Natriuret Pep 4791 pg/mL (0-450) H 10/16/19 10:07 Total Protein 8.0 g/dL (6.3-8.2) 10/16/19 10:32 Albumin 3.7 g/dL (3.9-5) L 10/16/19 10:32 Albumin/Globulin Ratio 0.9 % 10/16/19 10:32 TSH 1.540 mlU/mL (0.270-4.200) 10/16/19 16:50 Free T4 1.23 ng/dL (0.76-1.46) 10/16/19 16:50 Urine Color Yellow (Yellow) 10/16/19 10:52 Urine Turbidity Clear (Clear) 10/16/19 10:52 Urine pH 5.0 (5.0-7.0) 10/16/19 10:52 Ur Specific [place] 1.015 (1.003-1.030) 10/16/19 10:52 Urine Protein 30 mg/dl mg/dL (Negative) 10/16/19 10:52 Urine Glucose (UA) Neg mg/dL (Negative) 10/16/19 10:52 Urine Ketones Neg mg/dL (Negative) 10/16/19 10:52 Urine Blood Neg (Negative) 10/16/19 10:52 Urine Nitrite Neg (Negative) 10/16/19 10:52 Urine Bilirubin Neg (Negative) 10/16/19 10:52 Urine Urobilinogen < 2.0 mg/dL (<2.0) 10/16/19 10:52 Ur Leukocyte Esterase Neg (Negative) 10/16/19 10:52 Urine WBC (Auto) < 1.0 /HPF (0.0-6.0) 10/16/19 10:52 Urine RBC (Auto) 2.0 /HPF (0.0-6.0) 10/16/19 10:52 Urine Mucus Few /HPF 10/16/19 10:52 Urine Creatinine 315.9 mg/dL (0.1-20.0) H 10/18/19 Unknown Urine Sodium 10 mmol/L 10/18/19 Unknown Urine Potassium 28.30 mmol/L 10/18/19 Unknown Urine Urea Nitrogen 394 10/18/19 Unknown Urine Opiates Screen Presumptive negative 10/16/19 10:52 Urine Methadone Screen Presumptive negative 10/16/19 10:52 Ur Barbiturates Screen Presumptive negative 10/16/19 10:52 Ur Phencyclidine Scrn Presumptive negative 10/16/19 10:52 Ur Amphetamines Screen Presumptive negative 10/16/19 10:52 U Benzodiazepines Scrn Presumptive negative 10/16/19 10:52 Urine Cocaine Screen Presumptive negative 10/16/19 10:52 U Marijuana (THC) Screen Presumptive positive 10/16/19 10:52 Drugs of Abuse Note Disclamer 10/16/19 10:52 Active Medications - Current Medications Current Medications: Generic Name Dose Route Start Last Admin Trade Name Freq PRN Reason Stop Dose Admin Acetaminophen 650 mg 10/16/19 13:45 10/17/19 21:57 Tylenol PO 650 mg Q4H PRN Administration Pain MILD(1-3)/Fever >100.5/PEACOCK Aspirin 81 mg 10/19/19 14:00 10/19/19 13:05 Baby Aspirin PO 81 mg QDAY [facility] Administration Atorvastatin Calcium 20 mg 10/19/19 22:00 Lipitor PO QHS [facility] Atovaquone 1,500 mg 10/19/19 15:00 Mepron PO QDAY [facility] Benzonatate 100 mg 10/17/19 06:00 10/19/19 13:05 Tessalon Perles PO 100 mg Q8HR [facility] Administration Heparin Sodium (Porcine) 5,000 unit 10/16/19 22:00 10/19/19 11:28 Heparin SUB-Q 5,000 unit Q12HR [facility] Administration Lidocaine 1 each 10/17/19 15:00 10/19/19 11:27 Lidoderm 5% TD 1 each QDAY [facility] Administration Lorazepam 0.5 mg 10/17/19 02:36 10/18/19 21:56 Ativan PO 0.5 mg QHS [facility] Administration Metoprolol Succinate 25 mg 10/17/19 14:00 10/19/19 11:27 Metoprolol Xl PO 25 mg QDAY [facility] Administration Ondansetron HCl 4 mg 10/16/19 13:45 10/16/19 18:42 Zofran IV 4 mg Q8H PRN Administration Nausea And Vomiting Oxycodone/Acetaminophen 1 tab 10/18/19 00:00 10/19/19 06:56 Percocet 5/325 PO 1 tab Q6H PRN Administration Pain, Moderate (4-6) Pseudoephedrine/Acetam/Chlorphenir 20 ml 10/18/19 09:53 10/19/19 11:23 Robitussin Ac PO 20 ml Q4H PRN Administration Cough Sodium Chloride 10 ml 10/16/19 22:00 10/19/19 11:28 Sodium Chloride Flush Syringe 10 Ml IV 10 ml BID [facility] Administration Sodium Chloride 10 ml 10/16/19 13:45 Sodium Chloride Flush Syringe 10 Ml IV PRN PRN LINE FLUSH Ticagrelor 90 mg 10/19/19 14:00 10/19/19 13:21 Brilinta PO 90 mg BID [facility] Administration
--- NOTE | 2019-10-19 15:04 | XRay Report ---
CHEST 1 VIEW INDICATION / CLINICAL INFORMATION: sob. COMPARISON: 10/18/2019 FINDINGS: SUPPORT DEVICES: None. HEART / MEDIASTINUM: Cardiomegaly LUNGS / PLEURA: Focal increased density is developed in the right lung base representing either pleur al fluid or pneumonia No pneumothorax. ADDITIONAL FINDINGS: No significant additional findings. IMPRESSION: Cardiomegaly. Focal increased density has developed in the right lung base representing either pleura l fluid or pneumonia. Signer Name: Omar Gonsalves MD FACR Signed: 10/19/2019 3:00 PM Workstation Name: [id number]
[2019-10-19] MEDS ORDERED: DOBUTamine/D5W 500 MG/250 ML 500 MG/250 ML BAG IV SCH (16:00)
[2019-10-19] MEDS: ATOVAQUONE 750 MG/5 ML ORAL SUSP PO SCH (16:09)
[2019-10-19] MEDS: DOBUTamine/D5W 500 MG/250 ML 500 MG/250 ML BAG IV SCH (18:37)
[2019-10-19] MEDS: LORazepam 0.5 MG TAB PO SCH (21:56)
[2019-10-20] MEDS: guaiFENesin/CODEINE 100-10MG ORAL LIQD 5 ML PO PRN (00:47)
[2019-10-20] MEDS: oxyCODONE /ACETAMINOPHEN 5-325MG TAB PO PRN ×3 (00:49→21:28)
[2019-10-20] MEDS: BENZONATATE 100 MG CAP PO SCH ×3 (05:42→21:29)
[2019-10-20 06:36] LABS: BUN/Creatinine Ratio 32; Blood Urea Nitrogen 42 mg/dL (9-20); Chol/HDL Ratio 2.92 %; HDL Cholesterol 28 mg/dL (40-59); Hemolysis Index 78; LDL Cholesterol,Direct 46 mg/dL (50-130)
[2019-10-20] MEDS: ATOVAQUONE 750 MG/5 ML ORAL SUSP PO SCH ×2 (10:02→10:21)
[2019-10-20] MEDS: LIDOCAINE 5% 1 EACH PATCH TD SCH (10:02)
[2019-10-20] MEDS: TICAGRELOR 90 MG TAB PO SCH ×2 (10:03→21:29)
[2019-10-20] MEDS: ASPIRIN 81 MG TAB CHEW PO SCH (10:03)
[2019-10-20] MEDS: METOPROLOL SUCCINATE XL 25 MG TAB PO SCH (10:05)
[2019-10-20] MEDS: HEPARIN 5,000 UNIT/1 ML VIAL SUB-Q SCH ×2 (10:05→21:29)
--- NOTE | 2019-10-20 10:22 | Progress Note ---
Assessment and Plan Acute on chronic HFrEF EF ~10% per pt report. Await echo. Cont Toprol XL. No ACEI/ARB in setting of ACEI allergy and renal i nsufficiency. Will defer diuresis to nephrology in setting of renal insufficiency. Cont dobutamine gtt. Obtain strict I&Os and daily weights. NICMP EF ~10% per pt report. Await echo. Cont Toprol XL. No ACEI/ARB in setting of ACEI allergy and renal insufficiency. Will defer diuresis to nephrology in setting of renal insufficiency. Cont dobutamine gtt. Obtain strict I&Os and daily weights. CAD s/p PCI of RCA Done May 2019 in [place] per pt report. Cont ASA 81, brilinta, statin, Toprol XL. Elevated DDimer / ? PE Chest CTA showed questionable minimal left lower lobe PTE of questionable clinical significance. Further eval/management per primary. Consider BLE studies to r/o DVT. Await TTE. NAZ on ? CKD ? Cardiorenal syndrome. Nephrology following. HIV Noncompliant with medication regimen. ID recs noted. HTN Stable. Cont Toprol XL. H/o HLP lipid panel reviewed. cont low dose statin. LBBB NSVT Longest run noted was 15 beats on 10/17/2019 @ ~ 5PM. Pt symptomatic. Cont Toprol XL. Monitor electrolytes. Consider LifeVest/AICD pending TTE results. ACEI Allergy Medical noncompliance H/o polysubstance abuse (tobacco, ETOH, cocaine, marijuana) Cessation encouraged. The patient has been seen in conjunction with Dr. Alcaraz who agrees with the assessment and plan of care. Subjective Date of service: 10/20/19 Principal diagnosis: HF Interval history: pt resting in bed, states he is feeling much better today, appetite has returned, he reports increased UOP overnight. dobutamine gtt infusing. tele reviewed - in SR with no acute events overnight. Objective Last Vital Signs Temp 98.1 F 10/20/19 08:06 Pulse 102 H 10/20/19 04:15 Resp 18 10/20/19 08:06 BP 120/84 10/20/19 08:06 Pulse Ox 95 10/20/19 08:15 - Physical Examination General: No Apparent Distress HEENT: Positive: PERRL Neck: Positive: neck supple, trachea midline Cardiac: Positive: Reg Rate and Rhythm, S1/S2 Lungs: Positive: Decreased Breath Sounds Neuro: Positive: Grossly Intact Abdomen: Negative: Tender Skin: Negative: Rash Musculoskeletal: No Pain Extremities: Present: edema (trace BLE) - Labs and Meds Lipids 10/20/19 Range/Units 05:18 Triglycerides 72 (2-149) mg/dL Cholesterol 82 (50-199) mg/dL HDL Cholesterol 28 L (40-59) mg/dL Cholesterol/HDL Ratio 2.92 % Comprehensive Metabolic Panel 10/19/19 10/20/19 Range/Units 12:50 05:18 Sodium 127 L 130 L (137-145) mmol/L Potassium 3.8 3.7 (3.6-5.0) mmol/L Chloride 87.3 L 90.4 L (98-107) mmol/L Carbon Dioxide 18 L 21 L (22-30) mmol/L BUN 47 H 42 H (9-20) mg/dL Creatinine 2.1 H 1.3 (0.8-1.5) mg/dL Glucose 114 H 118 H (75-100) mg/dL Calcium 9.3 9.0 (8.4-10.2) mg/dL - Imaging and Cardiology EKG: report reviewed, image reviewed Echo: pending
[2019-10-20] MEDS ORDERED: FUROSEMIDE 40 MG/4 ML INJ IV ONE ×2 (10:32→13:30)
--- NOTE | 2019-10-20 10:53 | Progress Note ---
Assessment and Plan - Patient Problems (1) Acute renal failure Current Visit: Yes Status: Acute Plan to address problem: Possibly in the setting of contrast-induced injury superimposed on prerenal acute kidney injury. We'll review findings of the TTE to assess for signs of possible volume overload and cardiorenal syndrome. Continue current dobutamine gtt. Renal function improved. Will continue to closely monitor. (2) Acute and chronic respiratory failure with hypoxia Current Visit: Yes Status: Acute Plan to address problem: Respiratory status remains stable and slightly improved than yesterday, which I anticipate with increased urine output today after appropriate ionotropic support. Would continue to hold off on lasix for now as we stabilize his renal function and await the results of the ECHO. (3) Hemoptysis Current Visit: Yes Status: Acute Plan to address problem: No symptoms this am. V/Q report indicates low probability PTH. In this setting, with respiratory status stable and patient showing signs of renal recovery, would recommend avoiding nephrotoxins/contrast exposure. (4) Heart failure with reduced ejection fraction Current Visit: Yes Status: Chronic Plan to address problem: Pending echocardiogram results. We will follow-up results of the echocardiogram studies. (5) Acidosis Current Visit: Yes Status: Acute Plan to address problem: In the setting of acute renal failure. We'll continue to monitor closely. Subjective Date of service: 10/20/19 Principal diagnosis: HF Interval history: initiated on dobutamine gtt. Lasix held. ECHO reading pending. Renal function does show improvement this am. Urine output increased. Objective - Vital Signs Vital signs: Vital Signs - 12hr 10/19/19 10/20/19 10/20/19 23:33 04:15 08:00 Temperature 97.7 F 97.3 F L Pulse Rate 104 H 102 H Pulse Rate [ 103 H From Monitor] Respiratory 20 22 20 Rate Blood Pressure 120/79 115/73 O2 Sat by Pulse 99 95 95 Oximetry 10/20/19 10/20/19 10/20/19 08:06 08:15 10:05 Temperature 98.1 F Pulse Rate 103 H Pulse Rate [ From Monitor] Respiratory 18 Rate Blood Pressure 120/84 120/84 O2 Sat by Pulse 95 Oximetry - General Appearance General appearance: well-developed, well-nourished, appears stated age EENT: ATNC, PERRL Neck: no JVD Respiratory: Present: Wheezes Cardiology: regular, S1S2 Gastrointestinal: normal, normoactive bowel sounds Integumentary: no rash, warm and dry Neurologic: no focal deficit, alert and oriented x3 Musculoskeletal: deferred Psychiatric: cooperative - Lab 10/16/19 10:07 10/20/19 05:18 Most recent lab results ABG pH 7.423 pH Units (7.350-7.450) 10/16/19 11:45 ABG pCO2 36.0 mm Hg 10/16/19 11:45 ABG pO2 55.9 mm Hg (80.0-90.0) L 10/16/19 11:45 ABG HCO3 23.0 mmol/L (20.0-26.0) 10/16/19 11:45 ABG O2 Saturation 89.2 % (95.0-99.0) L 10/16/19 11:45 Calcium 9.0 mg/dL (8.4-10.2) 10/20/19 05:18 Magnesium 2.00 mg/dL (1.7-2.3) 10/16/19 16:50 Urine Creatinine 315.9 mg/dL (0.1-20.0) H 10/18/19 Unknown Urine Sodium 10 mmol/L 10/18/19 Unknown - Imaging Chest x-ray: report reviewed Kidney/bladder ultrasound: report reviewed - Allied health notes Allied health notes reviewed: nursing Medications & Allergies - Medications Allergies/Adverse Reactions: Allergies TL Inhibitors Adverse Reaction (Verified 07/31/19 07:48) Angioedema Home Medications: Home Medications Medication Instructions Recorded Confirmed Last Taken Type Albuterol INH(or & Nicu Only) 2 puff IH QID PRN #8.5 gram 10/17/19 Unknown Rx [ProAir HFA Inhaler] Metoprolol Succinate [Toprol Xl] 25 mg PO DAILY #30 tab.er.24h 10/17/19 Unknown Rx Torsemide 100 mg PO BID #60 10/17/19 Unknown Rx Active Medications: Generic Name Dose Route Start Last Admin Trade Name Freq PRN Reason Stop Dose Admin Acetaminophen 650 mg 10/16/19 13:45 10/17/19 21:57 Tylenol PO 650 mg Q4H PRN Administration Pain MILD(1-3)/Fever >100.5/[place]OCK Aspirin 81 mg 10/19/19 14:00 10/20/19 10:03 Baby Aspirin PO 81 mg QDAY [facility] Administration Atorvastatin Calcium 20 mg 10/19/19 22:00 10/19/19 21:56 Lipitor PO 20 mg QHS [facility] Administration Atovaquone 1,500 mg 10/19/19 15:00 10/20/19 10:21 Mepron PO Not Given QDAY [facility] Benzonatate 100 mg 10/17/19 06:00 10/20/19 05:42 Tessalon Perles PO 100 mg Q8HR [facility] Administration Heparin Sodium (Porcine) 5,000 unit 10/16/19 22:00 10/20/19 10:05 Heparin SUB-Q 5,000 unit Q12HR [facility] Administration Dobutamine HCl/Dextrose 500 mg in 250 mls @ 12.33 mls/hr 10/19/19 15:29 10/19/19 18:37 Dobutrex Drip 500mg/D5w 250ml IV 5 mcg/kg/min DIRECT [facility] 12.33 mls/hr Administration Protocol 5 MCG/KG/MIN Lidocaine 1 each 10/17/19 15:00 10/20/19 10:02 Lidoderm 5% TD 1 each QDAY [facility] Administration Lorazepam 0.5 mg 10/17/19 02:36 10/19/19 21:56 Ativan PO 0.5 mg QHS [facility] Administration Metoprolol Succinate 25 mg 10/17/19 14:00 10/20/19 10:05 Metoprolol Xl PO 25 mg QDAY [facility] Administration Ondansetron HCl 4 mg 10/16/19 13:45 10/16/19 18:42 Zofran IV 4 mg Q8H PRN Administration Nausea And Vomiting Oxycodone/Acetaminophen 1 tab 10/18/19 00:00 10/20/19 00:49 Percocet 5/325 PO 1 tab Q6H PRN Administration Pain, Moderate (4-6) Pseudoephedrine/Acetam/Chlorphenir 20 ml 10/18/19 09:53 10/20/19 00:47 Robitussin Ac PO 20 ml Q4H PRN Administration Cough Sodium Chloride 10 ml 10/16/19 22:00 10/20/19 10:07 Sodium Chloride Flush Syringe 10 Ml IV 10 ml BID [facility] Administration Sodium Chloride 10 ml 10/16/19 13:45 Sodium Chloride Flush Syringe 10 Ml IV PRN PRN LINE FLUSH Ticagrelor 90 mg 10/19/19 14:00 10/20/19 10:03 Brilinta PO 90 mg BID [facility] Administration
[2019-10-20] MEDS: DOBUTamine/D5W 500 MG/250 ML 500 MG/250 ML BAG IV SCH (13:21)
[2019-10-20] MEDS: ONDANSETRON 4 MG/2 ML INJ IV PRN (14:27)
--- NOTE | 2019-10-20 15:01 | Progress Note ---
Assessment and Plan A/P: 44-year-old male with HIV, has been noncompliant with his medications, coronary artery disease, congestive heart failure: #HIV, possibly AIDS: uncontrolled, non compliant with meds for many years. #Leucopenia: probably from above. #Acute CHF: hemoptysis probably from pulmonary edema. No lesions seen on CT. Subtle ground glass may also come from mild PCP pneumonia. Patient afebrile. #NAZ: nephrology following. creatinine improving. Recs: - patient is not interested in taking any HIV meds or atovaquone or Bactrim at this time. He thinks he is already on many medications. I recommended that he at least take prophylaxis for opportunistic infections, he declines. He says he will go home, read about everything and follow up with a doctor if he feels like starting meds. He is not interested in any further information from me - I again encouraged outpatient ID clinic follow up. He already has our clinic info if he is unable to find any other provider I will sign off at this time. Please call with questions or changes. Erlin Walsh MD, FACP [facility] ([facility]) C: [phone] O: [phone] F: [phone] Subjective Date of service: 10/20/19 Principal diagnosis: HF Interval history: No fever. Breathing improving. He reports feeling nauseated and with a headache ever since getting started on IV Dobutamine. He states he does not want anything for HIV or pneumonia and is refusing to take the atovaquone. He thinks all of these meds are toxic. I explained him that that is not the case. Objective - Exam Narrative Exam: Physical Exam: Constitutional: Alert, cooperative. No acute distress Head, Ears, Nose: Normocephalic, atraumatic. External ears, nose normal Eyes: Conjunctivae/corneas clear. No icterus. No ptosis. Neck: Supple, no meningeal signs Cardiovascular: S1, S2 normal. Respiratory: b/l basal crackles GI: Soft, non-tender; bowel sounds normal. No peritoneal signs Musculoskeletal: No pedal edema, no cyanosis. Skin: No rash or abscess Hem/Lymphatic: No palpable cervical or supraclavicular nodes. No lymphangitis Psych: Mood ok. Affect flat Neurological: Awake, alert, oriented. No gross abnormality - Constitutional Vitals: Vital Signs Temp Pulse Resp BP Pulse Ox 98.1 F 103 H 20 120/84 95 10/20/19 08:06 10/20/19 10:05 10/20/19 14:28 10/20/19 10:05 10/20/19 08:15 Temperature -Last 24 Hours Temperature 98.1 F Temperature 97.3 F Temperature 97.7 F Temperature 97.7 F - Labs CBC & Chem 7: 10/16/19 10:07 10/20/19 05:18 Labs: Abnormal lab results 10/20/19 Range/Units 05:18 Sodium 130 L (137-145) mmol/L Chloride 90.4 L (98-107) mmol/L Carbon Dioxide 21 L (22-30) mmol/L BUN 42 H (9-20) mg/dL Glucose 118 H (75-100) mg/dL LDL Cholesterol Direct 46 L (50-130) mg/dL HDL Cholesterol 28 L (40-59) mg/dL
--- NOTE | 2019-10-20 20:48 | Progress Note ---
Assessment and Plan Assessment and plan: 44-year-old man who presents to the hospital with shortness of breath and chest pain. Past medical history includes CHF EF 10% and hypertension. Labs show positive UDS with marijuana Acute on chronic systolic heart Failure, EF 10% Diuresis on hold due to renal failure, nephrology consulted. Cardiology input appreciated No TL inhibitor due to history of TL related angioedema. Beta-juanito, may need LifeVest -We will discuss with cardiology, patient may benefit from dobutamine versus milrinone. As patient is having oliguric cardiorenal syndrome. Shortness of breath/orthopnea CTA negative, lower extremity Doppler negative, VQ scan negative. Repeat chest x-ray today. Oliguric acute kidney injury likely due to cardiorenal syndrome, vasomotor nephropathy and contrast nephropathy nephrology consult appreciated, renal ultrasound no acute findings. Diuretics on hold, gentle hydration Acute respiratory failure ruled out, normal oxygenation ABG and O2 sats HIV Not compliance with medications, outpatient ID follow-up PO Atovaquone 1500 mg daily as PCP prophylaxis, avoid Bactrim due to renal failure Nonadherence Preventative health counseling performed for 17 minutes DVT prophylaxis; early ambulation [employer] recommendations noted and appreciated History Interval history: Patient seen and examined medical records reviewed Patient complains of severe shortness of breath and weakness Patient is in mild distress Denies chest pain or palpitations Vital signs stable Hospitalist Physical - Constitutional Vitals: Temp Pulse Resp BP Pulse Ox 98.1 F 103 H 20 120/84 95 10/20/19 08:06 10/20/19 10:05 10/20/19 14:28 10/20/19 10:05 10/20/19 08:15 General appearance: Present: no acute distress, well-nourished - EENT Eyes: Present: PERRL, EOM intact - Neck Neck: Present: supple, normal ROM - Respiratory Respiratory effort: normal Respiratory: bilateral: diminished, rales, negative: rhonchi, wheezing - Cardiovascular Rhythm: regular Heart Sounds: Present: S1 & S2 - Extremities Extremities: no ischemia, No edema - Abdominal General gastrointestinal: soft, non-tender, non-distended, normal bowel sounds - Integumentary Integumentary: Present: clear, warm - Psychiatric Psychiatric: appropriate mood/affect, cooperative - Neurologic Neurologic: CNII-XII intact, moves all extremities Results - Labs CBC & Chem 7: 10/16/19 10:07 10/21/19 05:57 Labs: Laboratory Last Values WBC 4.0 K/mm3 (4.5-11.0) L 10/16/19 10:07 RBC 4.27 M/mm3 (3.65-5.03) 10/16/19 10:07 Hgb 13.4 gm/dl (11.8-15.2) 10/16/19 10:07 Hct 40.2 % (35.5-45.6) 10/16/19 10:07 MCV 94 fl (84-94) 10/16/19 10:07 MCH 31 pg (28-32) 10/16/19 10:07 MCHC 33 % (32-34) 10/16/19 10:07 RDW 15.5 % (13.2-15.2) H 10/16/19 10:07 Plt Count 223 K/mm3 (140-440) 10/16/19 10:07 Lymph % (Auto) 29.0 % (13.4-35.0) 10/16/19 10:07 Simpson % (Auto) 5.8 % (0.0-7.3) 10/16/19 10:07 Eos % (Auto) 1.3 % (0.0-4.3) 10/16/19 10:07 Baso % (Auto) 1.4 % (0.0-1.8) 10/16/19 10:07 Lymph # 1.2 K/mm3 (1.2-5.4) 10/16/19 10:07 Simpson # 0.2 K/mm3 (0.0-0.8) 10/16/19 10:07 Eos # 0.1 K/mm3 (0.0-0.4) 10/16/19 10:07 Baso # 0.1 K/mm3 (0.0-0.1) 10/16/19 10:07 Seg Neutrophils % 62.5 % (40.0-70.0) 10/16/19 10:07 Seg Neutrophils # 2.5 K/mm3 (1.8-7.7) 10/16/19 10:07 PT 15.5 Sec. (12.2-14.9) H 10/16/19 10:32 INR 1.21 (0.87-1.13) H 10/16/19 10:32 APTT 35.3 Sec. (24.2-36.6) 10/16/19 10:32 D-Dimer 516.76 ng/mlDDU (0-234) H 10/16/19 10:32 ABG pH 7.423 pH Units (7.350-7.450) 10/16/19 11:45 ABG pCO2 36.0 mm Hg 10/16/19 11:45 ABG pO2 55.9 mm Hg (80.0-90.0) L 10/16/19 11:45 ABG HCO3 23.0 mmol/L (20.0-26.0) 10/16/19 11:45 ABG O2 Saturation 89.2 % (95.0-99.0) L 10/16/19 11:45 ABG O2 Content 16.4 (0.0-44) 10/16/19 11:45 ABG Base Excess -1.0 mmol/L (-2.0-3.0) 10/16/19 11:45 ABG Hemoglobin 13.4 gm/dl (14.0-18.0) L 10/16/19 11:45 ABG Carboxyhemoglobin 2.1 % (0.0-5.0) 10/16/19 11:45 ABG Methemoglobin 0.5 % (0.0-1.5) 10/16/19 11:45 Oxyhemoglobin 86.8 % (95.0-99.0) L 10/16/19 11:45 FiO2 32 % 10/16/19 11:45 Sodium 130 mmol/L (137-145) L 10/20/19 05:18 Potassium 3.7 mmol/L (3.6-5.0) 10/20/19 05:18 Chloride 90.4 mmol/L (98-107) L 10/20/19 05:18 Carbon Dioxide 21 mmol/L (22-30) L 10/20/19 05:18 Anion Gap 22 mmol/L 10/20/19 05:18 BUN 42 mg/dL (9-20) H 10/20/19 05:18 Creatinine 1.3 mg/dL (0.8-1.5) 10/20/19 05:18 Estimated GFR > 60 ml/min 10/20/19 05:18 BUN/Creatinine Ratio 32 % 10/20/19 05:18 Glucose 118 mg/dL (75-100) H 10/20/19 05:18 Calcium 9.0 mg/dL (8.4-10.2) 10/20/19 05:18 Magnesium 2.00 mg/dL (1.7-2.3) 10/16/19 16:50 Total Bilirubin 1.00 mg/dL (0.1-1.2) 10/16/19 10:32 Direct Bilirubin 0.4 mg/dL (0-0.2) H 10/16/19 10:32 Indirect Bilirubin 0.6 mg/dL 10/16/19 10:32 AST 28 units/L (5-40) 10/16/19 10:32 ALT 16 units/L (7-56) 10/16/19 10:32 Alkaline Phosphatase 86 units/L (35-129) 10/16/19 10:32 Total Creatine Kinase 405 units/L (55-170) H 10/16/19 10:32 CK-MB (CK-2) 3.2 ng/mL (0.0-4.0) 10/16/19 10:32 CK-MB (CK-2) Rel Index 0.7 (0-4) 10/16/19 10:32 Troponin T 0.017 ng/mL (0.00-0.029) 10/16/19 16:50 NT-Pro-B Natriuret Pep 4791 pg/mL (0-450) H 10/16/19 10:07 Total Protein 8.0 g/dL (6.3-8.2) 10/16/19 10:32 Albumin 3.7 g/dL (3.9-5) L 10/16/19 10:32 Albumin/Globulin Ratio 0.9 % 10/16/19 10:32 Triglycerides 72 mg/dL (2-149) 10/20/19 05:18 Cholesterol 82 mg/dL (50-199) 10/20/19 05:18 LDL Cholesterol Direct 46 mg/dL (50-130) L 10/20/19 05:18 HDL Cholesterol 28 mg/dL (40-59) L 10/20/19 05:18 Cholesterol/HDL Ratio 2.92 % 10/20/19 05:18 TSH 1.540 mlU/mL (0.270-4.200) 10/16/19 16:50 Free T4 1.23 ng/dL (0.76-1.46) 10/16/19 16:50 Urine Color Yellow (Yellow) 10/16/19 10:52 Urine Turbidity Clear (Clear) 10/16/19 10:52 Urine pH 5.0 (5.0-7.0) 10/16/19 10:52 Ur Specific [place] 1.015 (1.003-1.030) 10/16/19 10:52 Urine Protein 30 mg/dl mg/dL (Negative) 10/16/19 10:52 Urine Glucose (UA) Neg mg/dL (Negative) 10/16/19 10:52 Urine Ketones Neg mg/dL (Negative) 10/16/19 10:52 Urine Blood Neg (Negative) 10/16/19 10:52 Urine Nitrite Neg (Negative) 10/16/19 10:52 Urine Bilirubin Neg (Negative) 10/16/19 10:52 Urine Urobilinogen < 2.0 mg/dL (<2.0) 10/16/19 10:52 Ur Leukocyte Esterase Neg (Negative) 10/16/19 10:52 Urine WBC (Auto) < 1.0 /HPF (0.0-6.0) 10/16/19 10:52 Urine RBC (Auto) 2.0 /HPF (0.0-6.0) 10/16/19 10:52 Urine Mucus Few /HPF 10/16/19 10:52 Urine Creatinine 315.9 mg/dL (0.1-20.0) H 10/18/19 Unknown Urine Sodium 10 mmol/L 10/18/19 Unknown Urine Potassium 28.30 mmol/L 10/18/19 Unknown Urine Urea Nitrogen 394 10/18/19 Unknown Urine Opiates Screen Presumptive negative 10/16/19 10:52 Urine Methadone Screen Presumptive negative 10/16/19 10:52 Ur Barbiturates Screen Presumptive negative 10/16/19 10:52 Ur Phencyclidine Scrn Presumptive negative 10/16/19 10:52 Ur Amphetamines Screen Presumptive negative 10/16/19 10:52 U Benzodiazepines Scrn Presumptive negative 10/16/19 10:52 Urine Cocaine Screen Presumptive negative 10/16/19 10:52 U Marijuana (THC) Screen Presumptive positive 10/16/19 10:52 Drugs of Abuse Note Disclamer 10/16/19 10:52 Active Medications - Current Medications Current Medications: Generic Name Dose Route Start Last Admin Trade Name Freq PRN Reason Stop Dose Admin Acetaminophen 650 mg 10/16/19 13:45 10/17/19 21:57 Tylenol PO 650 mg Q4H PRN Administration Pain MILD(1-3)/Fever >100.5/PEACOCK Aspirin 81 mg 10/19/19 14:00 10/20/19 10:03 Baby Aspirin PO 81 mg QDAY CESAR Administration Atorvastatin Calcium 20 mg 10/19/19 22:00 10/19/19 21:56 Lipitor PO 20 mg QHS CESAR Administration Atovaquone 1,500 mg 10/19/19 15:00 10/20/19 10:21 Mepron PO Not Given QDAY CESAR Benzonatate 100 mg 10/17/19 06:00 10/20/19 13:21 Tessalon Perles PO 100 mg Q8HR CESAR Administration Heparin Sodium (Porcine) 5,000 unit 10/16/19 22:00 10/20/19 10:05 Heparin SUB-Q 5,000 unit Q12HR CESAR Administration Dobutamine HCl/Dextrose 500 mg in 250 mls @ 12.33 mls/hr 10/19/19 15:29 10/20/19 13:21 Dobutrex Drip 500mg/D5w 250ml IV 5 mcg/kg/min DIRECT CESAR 12.33 mls/hr Administration Protocol 5 MCG/KG/MIN Lidocaine 1 each 10/17/19 15:00 10/20/19 10:02 Lidoderm 5% TD 1 each QDAY CESAR Administration Lorazepam 0.5 mg 10/17/19 02:36 10/19/19 21:56 Ativan PO 0.5 mg QHS CESAR Administration Metoprolol Succinate 25 mg 10/17/19 14:00 10/20/19 10:05 Metoprolol Xl PO 25 mg QDAY CESAR Administration Ondansetron HCl 4 mg 10/16/19 13:45 10/20/19 14:27 Zofran IV 4 mg Q8H PRN Administration Nausea And Vomiting Oxycodone/Acetaminophen 1 tab 10/18/19 00:00 10/20/19 14:28 Percocet 5/325 PO 1 tab Q6H PRN Administration Pain, Moderate (4-6) Pseudoephedrine/Acetam/Chlorphenir 20 ml 10/18/19 09:53 10/20/19 00:47 Robitussin Ac PO 20 ml Q4H PRN Administration Cough Sodium Chloride 10 ml 10/16/19 22:00 10/20/19 10:07 Sodium Chloride Flush Syringe 10 Ml IV 10 ml BID CESAR Administration Sodium Chloride 10 ml 10/16/19 13:45 Sodium Chloride Flush Syringe 10 Ml IV PRN PRN LINE FLUSH Ticagrelor 90 mg 10/19/19 14:00 10/20/19 10:03 Brilinta PO 90 mg BID CESAR Administration
[2019-10-20] MEDS: LORazepam 0.5 MG TAB PO SCH (21:29)
[2019-10-21] MEDS: BENZONATATE 100 MG CAP PO SCH ×3 (05:30→22:23)
[2019-10-21 07:08] LABS: BUN/Creatinine Ratio 31; Blood Urea Nitrogen 34 mg/dL (9-20); Calcium 8.7 mg/dL (8.4-10.2); Hemolysis Index 7
[2019-10-21] MEDS: ASPIRIN 81 MG TAB CHEW PO SCH (09:20)
[2019-10-21] MEDS: TICAGRELOR 90 MG TAB PO SCH ×2 (09:20→22:23)
[2019-10-21] MEDS: METOPROLOL SUCCINATE XL 25 MG TAB PO SCH (09:21)
[2019-10-21] MEDS: LIDOCAINE 5% 1 EACH PATCH TD SCH (09:21)
[2019-10-21] MEDS: HEPARIN 5,000 UNIT/1 ML VIAL SUB-Q SCH ×2 (09:21→22:22)
[2019-10-21] MEDS ORDERED: POTASSIUM CHLORIDE ER 20 MEQ TAB PO NR (09:22)
[2019-10-21] MEDS: ATOVAQUONE 750 MG/5 ML ORAL SUSP PO SCH (09:41)
--- NOTE | 2019-10-21 10:43 | Progress Note ---
Assessment and Plan Acute on chronic HFrEF TTE reviewed - EF 10%, restrictive diastolic filling, LA severely dilated, RV mod dilated, RV systolic function severely reduced, RA severely dilated, mild to mod MR and TR, RVSP 38mmHg. Cont Toprol XL. Renal indices improving. Consider addition of ARB nephrology is agreeable. Cont dobutamine gtt for another day. Recommend IV lasix BID if nephrology is agreeable. Obtain strict I&Os and daily weights. NICMP TTE reviewed - EF 10%, restrictive diastolic filling, LA severely dilated, RV mod dilated, RV systolic function severely reduced, RA severely dilated, mild to mod MR and TR, RVSP 38mmHg. Renal indices improving. Consider addition of ARB nephrology is agreeable. Cont dobutamine gtt for another day. Recommend IV lasix BID if nephrology is agreeable. Obtain strict I&Os and daily weights. Pt reports LHC with PCI in May 2019 in [place], [place]. Will attempt to obtain cath report. Consider LifeVest and will plan to address AICD candidacy as OP. CAD s/p PCI of RCA Pt reports LHC with PCI in May 2019 in [place], [place]. Will attempt to obtain cath report. Cont ASA 81, brilinta, statin, Toprol XL. Elevated DDimer / ? PE Chest CTA showed questionable minimal left lower lobe PTE of questionable clinical significance. V/Q scan low prob for PE. Bilateral venous duplex studies negative for DVT. TTE reviewed - EF 10%, restrictive diastolic filling, LA severely dilated, RV mod dilated, RV systolic function severely reduced, RA severely dilated, mild to mod MR and TR, RVSP 38mmHg. NAZ cardiorenal syndrome, vasomotor nephropathy and contrast nephropathy Renal indices improving. Nephrology following. HIV Noncompliant with medication regimen. ID recs noted. HTN Stable. Cont Toprol XL. H/o HLP Lipid panel reviewed. Cont low dose statin. LBBB NSVT Longest run noted was 15 beats on 10/17/2019 @ ~ 5PM. Pt symptomatic. Cont Toprol XL. Monitor electrolytes. Consider LifeVest and will plan to address AICD candidacy as OP. ACEI Allergy Medical noncompliance H/o polysubstance abuse (tobacco, ETOH, cocaine, marijuana) Cessation encouraged. The patient has been seen in conjunction with Dr. Alcaraz who agrees with the assessment and plan of care. Subjective Date of service: 10/21/19 Principal diagnosis: HF Interval history: pt resting in bed, states he is feeling better every day. dobutamine gtt infusing. tele reviewed - in SR with no acute events overnight. Objective Last Vital Signs Temp 98.2 F 10/21/19 07:59 Pulse 82 10/21/19 09:21 Resp 22 10/21/19 08:00 BP 138/97 10/21/19 09:21 Pulse Ox 94 10/21/19 09:00 - Physical Examination General: No Apparent Distress HEENT: Positive: PERRL Neck: Positive: neck supple, trachea midline Cardiac: Positive: Regular Rhythm, S1/S2 Lungs: Positive: Decreased Breath Sounds Neuro: Positive: Grossly Intact Abdomen: Negative: Tender Skin: Negative: Rash Musculoskeletal: No Pain Extremities: Present: edema (trace BLE) - Labs and Meds Comprehensive Metabolic Panel 10/21/19 Range/Units 05:57 Sodium 132 L (137-145) mmol/L Potassium 3.1 L (3.6-5.0) mmol/L Chloride 87.9 L (98-107) mmol/L Carbon Dioxide 28 D (22-30) mmol/L BUN 34 H (9-20) mg/dL Creatinine 1.1 (0.8-1.5) mg/dL Glucose 101 H (75-100) mg/dL Calcium 8.7 (8.4-10.2) mg/dL - Imaging and Cardiology EKG: report reviewed, image reviewed Echo: report reviewed - Telemetry EKG Rhythm: Sinus Rhythm - Allied health notes Allied health notes reviewed: nursing
[2019-10-21] MEDS ORDERED: POTASSIUM CHLORIDE ER 20 MEQ TAB PO ONE (15:15)
--- NOTE | 2019-10-21 15:23 | Progress Note ---
Assessment and Plan - Patient Problems (1) Acute renal failure Current Visit: Yes Status: Acute Plan to address problem: Possibly in the setting of contrast-induced injury superimposed on prerenal acute kidney injury and cardiorenal syndrome based on review of TTE. Continue current dobutamine gtt. Renal function improved. Will continue to closely mo nitor. Will start on lasix 20 mg IV BID, to titrate as needed based on response. (2) Acute and chronic respiratory failure with hypoxia Current Visit: Yes Status: Acute Plan to address problem: Respiratory status remains stable, based on ECHO findings will start on lasix 20 mg IV BID and monitor response. (3) Heart failure with reduced ejection fraction Current Visit: Yes Status: Chronic Plan to address problem: Results of the echocardiogram reviewed. Patient started on lasix 20 mg IV BID. Need strict I/O. Will monitor closely. (4) Hypokalemia Current Visit: Yes Status: Acute Plan to address problem: Will order for KCl 40 meq PO BID for total of 8 doses, and closely monitor daily labs, especially now that we are restarting his diuretic therapy. (5) Hemoptysis Current Visit: Yes Status: Acute Plan to address problem: Resolved at this time. V/Q report indicates low probability PTH. In this setting, with respiratory status stable and patient showing signs of renal recovery, would recommend avoiding nephrotoxins/contrast exposure. (6) Acidosis Current Visit: Yes Status: Acute Plan to address problem: In the setting of acute renal failure. Resolved at this time. Subjective Date of service: 10/21/19 Principal diagnosis: HF Interval history: Labs reviewed, ECHO report reviewed. Overall renal function is stable. Patient received one dose of 40 meq oral KCl. Will order for second dose today. Will also write order for initiating lasix 20 mg IV BID, with plan for gradual titration as tolerated. Objective - Vital Signs Vital signs: Vital Signs - 12hr 10/21/19 10/21/19 10/21/19 04:04 07:59 08:00 Temperature 98.0 F 98.2 F Pulse Rate 97 H 82 Pulse Rate [ 104 H Apical] Pulse Rate [ 106 H From Monitor] Respiratory 18 18 22 Rate Blood Pressure 132/100 138/97 O2 Sat by Pulse 99 94 94 Oximetry 10/21/19 10/21/19 09:00 09:21 Temperature Pulse Rate 82 Pulse Rate [ Apical] Pulse Rate [ From Monitor] Respiratory Rate Blood Pressure 138/97 O2 Sat by Pulse 94 Oximetry - General Appearance General appearance: well-developed, well-nourished, appears stated age EENT: ATNC, PERRL Neck: no JVD, no thyromegaly Respiratory: Present: Clear to Ascultation Cardiology: regular, S1S2 Gastrointestinal: normal, normoactive bowel sounds Integumentary: no rash, warm and dry Neurologic: no focal deficit, alert and oriented x3 Musculoskeletal: deferred Psychiatric: cooperative - Lab 10/16/19 10:07 10/21/19 05:57 Most recent lab results ABG pH 7.423 pH Units (7.350-7.450) 10/16/19 11:45 ABG pCO2 36.0 mm Hg 10/16/19 11:45 ABG pO2 55.9 mm Hg (80.0-90.0) L 10/16/19 11:45 ABG HCO3 23.0 mmol/L (20.0-26.0) 10/16/19 11:45 ABG O2 Saturation 89.2 % (95.0-99.0) L 10/16/19 11:45 Calcium 8.7 mg/dL (8.4-10.2) 10/21/19 05:57 Magnesium 2.00 mg/dL (1.7-2.3) 10/16/19 16:50 Urine Creatinine 315.9 mg/dL (0.1-20.0) H 10/18/19 Unknown Urine Sodium 10 mmol/L 10/18/19 Unknown - Allied health notes Allied health notes reviewed: nursing Medications & Allergies - Medications Allergies/Adverse Reactions: Allergies TL Inhibitors Adverse Reaction (Verified 07/31/19 07:48) Angioedema Home Medications: Home Medications Medication Instructions Recorded Confirmed Last Taken Type Albuterol INH(or & Nicu Only) 2 puff IH QID PRN #8.5 gram 10/17/19 Unknown Rx [ProAir HFA Inhaler] Metoprolol Succinate [Toprol Xl] 25 mg PO DAILY #30 tab.er.24h 10/17/19 Unknown Rx Torsemide 100 mg PO BID #60 10/17/19 Unknown Rx Active Medications: Generic Name Dose Route Start Last Admin Trade Name Freq PRN Reason Stop Dose Admin Acetaminophen 650 mg 10/16/19 13:45 01/25/20 21:57 Tylenol PO 650 mg Q4H PRN Administration Pain MILD(1-3)/Fever >100.5/PEACOCK Aspirin 81 mg 10/19/19 14:00 10/21/19 09:20 Baby Aspirin PO 81 mg QDAY CESAR Administration Atorvastatin Calcium 20 mg 10/19/19 22:00 10/20/19 21:29 Lipitor PO 20 mg QHS CESAR Administration Atovaquone 1,500 mg 10/19/19 15:00 10/21/19 09:41 Mepron PO Not Given QDAY CESAR Benzonatate 100 mg 10/17/19 06:00 10/21/19 05:30 Tessalon Perles PO 100 mg Q8HR CESAR Administration Furosemide 20 mg 10/21/19 18:00 Lasix IV 0600,1800 [facility] Heparin Sodium (Porcine) 5,000 unit 10/16/19 22:00 10/21/19 09:21 Heparin SUB-Q 5,000 unit Q12HR CESAR Administration Dobutamine HCl/Dextrose 500 mg in 250 mls @ 12.33 mls/hr 10/19/19 15:29 10/20/19 13:21 Dobutrex Drip 500mg/D5w 250ml IV 5 mcg/kg/min DIRECT CESAR 12.33 mls/hr Administration Protocol 5 MCG/KG/MIN Lidocaine 1 each 10/17/19 15:00 10/21/19 09:21 Lidoderm 5% TD 1 each QDAY CESAR Administration Lorazepam 0.5 mg 10/17/19 02:36 10/20/19 21:29 Ativan PO 0.5 mg QHS CESAR Administration Metoprolol Succinate 25 mg 10/17/19 14:00 10/21/19 09:21 Metoprolol Xl PO 25 mg QDAY CESAR Administration Ondansetron HCl 4 mg 10/16/19 13:45 10/20/19 14:27 Zofran IV 4 mg Q8H PRN Administration Nausea And Vomiting Oxycodone/Acetaminophen 1 tab 10/18/19 00:00 10/20/19 21:28 Percocet 5/325 PO 1 tab Q6H PRN Administration Pain, Moderate (4-6) Potassium Chloride 40 meq 10/22/19 09:00 K-Dur PO 10/25/19 10:01 BID CESAR Pseudoephedrine/Acetam/Chlorphenir 20 ml 10/18/19 09:53 10/20/19 00:47 Robitussin Ac PO 20 ml Q4H PRN Administration Cough Sodium Chloride 10 ml 10/16/19 22:00 10/21/19 09:23 Sodium Chloride Flush Syringe 10 Ml IV 10 ml BID CESAR Administration Sodium Chloride 10 ml 10/16/19 13:45 Sodium Chloride Flush Syringe 10 Ml IV PRN PRN LINE FLUSH Ticagrelor 90 mg 10/19/19 14:00 10/21/19 09:20 Brilinta PO 90 mg BID CESAR Administration
[2019-10-21] MEDS: POTASSIUM CHLORIDE 10 MEQ 10 MEQ/100 ML BAG IV SCH ×2 (15:34→15:35)
[2019-10-21] MEDS ORDERED: POTASSIUM CHLORIDE 10 MEQ 10 MEQ/100 ML BAG IV SCH (16:00)
[2019-10-21] MEDS: ONDANSETRON 4 MG/2 ML INJ IV PRN (17:36)
[2019-10-21] MEDS: FUROSEMIDE 20 MG/2 ML INJ IV SCH (17:36)
[2019-10-21] MEDS: DOBUTamine/D5W 500 MG/250 ML 500 MG/250 ML BAG IV SCH (17:50)
[2019-10-21] MEDS: oxyCODONE /ACETAMINOPHEN 5-325MG TAB PO PRN (18:00)
[2019-10-21] MEDS: guaiFENesin/CODEINE 100-10MG ORAL LIQD 5 ML PO PRN (18:03)
--- NOTE | 2019-10-21 20:32 | Progress Note ---
Assessment and Plan Assessment and plan: 44-year-old man who presents to the hospital with shortness of breath and chest pain. Past medical history includes CHF EF 10% and hypertension. Labs show positive UDS with marijuana. Acute on chronic systolic congestive heart failure EF 10% Diuresis on hold due to renal failure, nephrology following. Dobutamine drip per cardiology No TL inhibitor due to history of TL related angioedema. Beta-juanito, may need LifeVest Shortness of breath/orthopnea CTA negative, lower extremity Doppler negative, VQ scan negative. Repeat chest x-ray today. --Oliguric acute kidney injury; vasomotor nephropathy Avoid nephrotoxins, mild monitor renal function, nephrology following --History of HIV Not compliance with medications, outpatient ID follow-up PO Atovaquone 1500 mg daily as PCP prophylaxis, avoid Bactrim due to renal failure Medical noncompliance ;preventative health counseling performed for 17 minutes DVT prophylaxis; early ambulation Director Nursing Service recommendations noted and appreciated Possible discharge home tomorrow if stable History Interval history: Patient seen and examined patient's chart and medications reviewed Patient complains of mild shortness of breath, denies chest pain Also has mild nausea and vomiting Patient is receiving dobutamine drip per cardiology Feels slightly better Vital signs noted Hospitalist Physical - Constitutional Vitals: Temp Pulse Resp BP Pulse Ox 98.1 F 101 H 22 132/96 99 10/21/19 11:55 10/21/19 19:52 10/21/19 19:52 10/21/19 19:52 10/21/19 19:52 General appearance: Present: no acute distress, well-nourished - EENT Eyes: Present: PERRL, EOM intact - Neck Neck: Present: supple, normal ROM - Respiratory Respiratory effort: normal Respiratory: bilateral: diminished, negative: rales, rhonchi, wheezing - Cardiovascular Rhythm: regular Heart Sounds: Present: S1 & S2 - Extremities Extremities: no ischemia Extremity abnormal: edema - Abdominal General gastrointestinal: soft, non-tender, non-distended, normal bowel sounds - Integumentary Integumentary: Present: clear, warm - Psychiatric Psychiatric: appropriate mood/affect, cooperative - Neurologic Neurologic: CNII-XII intact, moves all extremities Results - Labs CBC & Chem 7: 10/16/19 10:07 10/21/19 05:57 Labs: Laboratory Last Values WBC 4.0 K/mm3 (4.5-11.0) L 10/16/19 10:07 RBC 4.27 M/mm3 (3.65-5.03) 10/16/19 10:07 Hgb 13.4 gm/dl (11.8-15.2) 10/16/19 10:07 Hct 40.2 % (35.5-45.6) 10/16/19 10:07 MCV 94 fl (84-94) 10/16/19 10:07 MCH 31 pg (28-32) 10/16/19 10:07 MCHC 33 % (32-34) 10/16/19 10:07 RDW 15.5 % (13.2-15.2) H 10/16/19 10:07 Plt Count 223 K/mm3 (140-440) 10/16/19 10:07 Lymph % (Auto) 29.0 % (13.4-35.0) 10/16/19 10:07 [place] % (Auto) 5.8 % (0.0-7.3) 10/16/19 10:07 Eos % (Auto) 1.3 % (0.0-4.3) 10/16/19 10:07 Baso % (Auto) 1.4 % (0.0-1.8) 10/16/19 10:07 Lymph # 1.2 K/mm3 (1.2-5.4) 10/16/19 10:07 [place] # 0.2 K/mm3 (0.0-0.8) 10/16/19 10:07 Eos # 0.1 K/mm3 (0.0-0.4) 10/16/19 10:07 Baso # 0.1 K/mm3 (0.0-0.1) 10/16/19 10:07 Seg Neutrophils % 62.5 % (40.0-70.0) 10/16/19 10:07 Seg Neutrophils # 2.5 K/mm3 (1.8-7.7) 10/16/19 10:07 PT 15.5 Sec. (12.2-14.9) H 10/16/19 10:32 INR 1.21 (0.87-1.13) H 10/16/19 10:32 APTT 35.3 Sec. (24.2-36.6) 10/16/19 10:32 D-Dimer 516.76 ng/mlDDU (0-234) H 10/16/19 10:32 ABG pH 7.423 pH Units (7.350-7.450) 10/16/19 11:45 ABG pCO2 36.0 mm Hg 10/16/19 11:45 ABG pO2 55.9 mm Hg (80.0-90.0) L 10/16/19 11:45 ABG HCO3 23.0 mmol/L (20.0-26.0) 10/16/19 11:45 ABG O2 Saturation 89.2 % (95.0-99.0) L 10/16/19 11:45 ABG O2 Content 16.4 (0.0-44) 10/16/19 11:45 ABG Base Excess -1.0 mmol/L (-2.0-3.0) 10/16/19 11:45 ABG Hemoglobin 13.4 gm/dl (14.0-18.0) L 10/16/19 11:45 ABG Carboxyhemoglobin 2.1 % (0.0-5.0) 10/16/19 11:45 ABG Methemoglobin 0.5 % (0.0-1.5) 10/16/19 11:45 Oxyhemoglobin 86.8 % (95.0-99.0) L 10/16/19 11:45 FiO2 32 % 10/16/19 11:45 Sodium 132 mmol/L (137-145) L 10/21/19 05:57 Potassium 3.1 mmol/L (3.6-5.0) L 10/21/19 05:57 Chloride 87.9 mmol/L (98-107) L 10/21/19 05:57 Carbon Dioxide 28 mmol/L (22-30) D 10/21/19 05:57 Anion Gap 19 mmol/L 10/21/19 05:57 BUN 34 mg/dL (9-20) H 10/21/19 05:57 Creatinine 1.1 mg/dL (0.8-1.5) 10/21/19 05:57 Estimated GFR > 60 ml/min 10/21/19 05:57 BUN/Creatinine Ratio 31 % 10/21/19 05:57 Glucose 101 mg/dL (75-100) H 10/21/19 05:57 Calcium 8.7 mg/dL (8.4-10.2) 10/21/19 05:57 Magnesium 2.00 mg/dL (1.7-2.3) 10/16/19 16:50 Total Bilirubin 1.00 mg/dL (0.1-1.2) 10/16/19 10:32 Direct Bilirubin 0.4 mg/dL (0-0.2) H 10/16/19 10:32 Indirect Bilirubin 0.6 mg/dL 10/16/19 10:32 AST 28 units/L (5-40) 10/16/19 10:32 ALT 16 units/L (7-56) 10/16/19 10:32 Alkaline Phosphatase 86 units/L (35-129) 10/16/19 10:32 Total Creatine Kinase 405 units/L (55-170) H 10/16/19 10:32 CK-MB (CK-2) 3.2 ng/mL (0.0-4.0) 10/16/19 10:32 CK-MB (CK-2) Rel Index 0.7 (0-4) 10/16/19 10:32 Troponin T 0.017 ng/mL (0.00-0.029) 10/16/19 16:50 NT-Pro-B Natriuret Pep 4791 pg/mL (0-450) H 10/16/19 10:07 Total Protein 8.0 g/dL (6.3-8.2) 10/16/19 10:32 Albumin 3.7 g/dL (3.9-5) L 10/16/19 10:32 Albumin/Globulin Ratio 0.9 % 10/16/19 10:32 Triglycerides 72 mg/dL (2-149) 10/20/19 05:18 Cholesterol 82 mg/dL (50-199) 10/20/19 05:18 LDL Cholesterol Direct 46 mg/dL (50-130) L 10/20/19 05:18 HDL Cholesterol 28 mg/dL (40-59) L 10/20/19 05:18 Cholesterol/HDL Ratio 2.92 % 10/20/19 05:18 TSH 1.540 mlU/mL (0.270-4.200) 10/16/19 16:50 Free T4 1.23 ng/dL (0.76-1.46) 10/16/19 16:50 Urine Color Yellow (Yellow) 10/16/19 10:52 Urine Turbidity Clear (Clear) 10/16/19 10:52 Urine pH 5.0 (5.0-7.0) 10/16/19 10:52 Ur Specific [place] 1.015 (1.003-1.030) 10/16/19 10:52 Urine Protein 30 mg/dl mg/dL (Negative) 10/16/19 10:52 Urine Glucose (UA) Neg mg/dL (Negative) 10/16/19 10:52 Urine Ketones Neg mg/dL (Negative) 10/16/19 10:52 Urine Blood Neg (Negative) 10/16/19 10:52 Urine Nitrite Neg (Negative) 10/16/19 10:52 Urine Bilirubin Neg (Negative) 10/16/19 10:52 Urine Urobilinogen < 2.0 mg/dL (<2.0) 10/16/19 10:52 Ur Leukocyte Esterase Neg (Negative) 10/16/19 10:52 Urine WBC (Auto) < 1.0 /HPF (0.0-6.0) 10/16/19 10:52 Urine RBC (Auto) 2.0 /HPF (0.0-6.0) 10/16/19 10:52 Urine Mucus Few /HPF 10/16/19 10:52 Urine Creatinine 315.9 mg/dL (0.1-20.0) H 10/18/19 Unknown Urine Sodium 10 mmol/L 10/18/19 Unknown Urine Potassium 28.30 mmol/L 10/18/19 Unknown Urine Urea Nitrogen 394 10/18/19 Unknown Urine Opiates Screen Presumptive negative 10/16/19 10:52 Urine Methadone Screen Presumptive negative 10/16/19 10:52 Ur Barbiturates Screen Presumptive negative 10/16/19 10:52 Ur Phencyclidine Scrn Presumptive negative 10/16/19 10:52 Ur Amphetamines Screen Presumptive negative 10/16/19 10:52 U Benzodiazepines Scrn Presumptive negative 10/16/19 10:52 Urine Cocaine Screen Presumptive negative 10/16/19 10:52 U Marijuana (THC) Screen Presumptive positive 10/16/19 10:52 Drugs of Abuse Note Disclamer 10/16/19 10:52 Active Medications - Current Medications Current Medications: Generic Name Dose Route Start Last Admin Trade Name Freq PRN Reason Stop Dose Admin Acetaminophen 650 mg 10/16/19 13:45 10/17/19 21:57 Tylenol PO 650 mg Q4H PRN Administration Pain MILD(1-3)/Fever >100.5/PEACOCK Aspirin 81 mg 10/19/19 14:00 10/21/19 09:20 Baby Aspirin PO 81 mg QDAY CESAR Administration Atorvastatin Calcium 20 mg 10/19/19 22:00 10/20/19 21:29 Lipitor PO 20 mg QHS CESAR Administration Atovaquone 1,500 mg 10/19/19 15:00 10/21/19 09:41 Mepron PO Not Given QDAY CESAR Benzonatate 100 mg 10/17/19 06:00 10/21/19 15:34 Tessalon Perles PO 100 mg Q8HR CESAR Administration Furosemide 20 mg 10/21/19 18:00 10/21/19 17:36 Lasix IV 20 mg 0600,1800 CESAR Administration Heparin Sodium (Porcine) 5,000 unit 10/16/19 22:00 10/21/19 09:21 Heparin SUB-Q 5,000 unit Q12HR CESAR Administration Dobutamine HCl/Dextrose 500 mg in 250 mls @ 12.33 mls/hr 10/19/19 15:29 10/21/19 17:50 Dobutrex Drip 500mg/D5w 250ml IV 5 mcg/kg/min DIRECT CESAR 12.33 mls/hr Administration Protocol 5 MCG/KG/MIN Lidocaine 1 each 10/17/19 15:00 10/21/19 09:21 Lidoderm 5% TD 1 each QDAY CESAR Administration Lorazepam 0.5 mg 10/17/19 02:36 10/20/19 21:29 Ativan PO 0.5 mg QHS CESAR Administration Metoprolol Succinate 25 mg 10/17/19 14:00 10/21/19 09:21 Metoprolol Xl PO 25 mg QDAY CESAR Administration Ondansetron HCl 4 mg 10/16/19 13:45 10/21/19 17:36 Zofran IV 4 mg Q8H PRN Administration Nausea And Vomiting Oxycodone/Acetaminophen 1 tab 10/18/19 00:00 10/21/19 18:00 Percocet 5/325 PO 1 tab Q6H PRN Administration Pain, Moderate (4-6) Potassium Chloride 40 meq 10/22/19 09:00 K-Dur PO 10/25/19 10:01 BID CESAR Pseudoephedrine/Acetam/Chlorphenir 20 ml 10/18/19 09:53 10/21/19 18:03 Robitussin Ac PO 20 ml Q4H PRN Administration Cough Sodium Chloride 10 ml 10/16/19 22:00 10/21/19 09:23 Sodium Chloride Flush Syringe 10 Ml IV 10 ml BID CESAR Administration Sodium Chloride 10 ml 10/16/19 13:45 Sodium Chloride Flush Syringe 10 Ml IV PRN PRN LINE FLUSH Ticagrelor 90 mg 10/19/19 14:00 10/21/19 09:20 Brilinta PO 90 mg BID CESAR Administration
[2019-10-21] MEDS: LORazepam 0.5 MG TAB PO SCH (22:23)
[2019-10-22 05:47] LABS: BUN/Creatinine Ratio 23; Blood Urea Nitrogen 25 mg/dL (9-20); Calcium 8.8 mg/dL (8.4-10.2); Hemolysis Index 0
[2019-10-22] MEDS: BENZONATATE 100 MG CAP PO SCH ×3 (06:42→21:21)
[2019-10-22] MEDS: FUROSEMIDE 20 MG/2 ML INJ IV SCH ×2 (06:42→17:56)
[2019-10-22] MEDS: oxyCODONE /ACETAMINOPHEN 5-325MG TAB PO PRN ×3 (06:42→20:21)
[2019-10-22] MEDS: TICAGRELOR 90 MG TAB PO SCH ×2 (09:34→21:20)
[2019-10-22] MEDS: HEPARIN 5,000 UNIT/1 ML VIAL SUB-Q SCH ×2 (09:34→21:20)
[2019-10-22] MEDS: POTASSIUM CHLORIDE ER 20 MEQ TAB PO SCH ×2 (09:34→21:30)
[2019-10-22] MEDS: ASPIRIN 81 MG TAB CHEW PO SCH (09:35)
[2019-10-22] MEDS: ATOVAQUONE 750 MG/5 ML ORAL SUSP PO SCH (09:35)
[2019-10-22] MEDS: LIDOCAINE 5% 1 EACH PATCH TD SCH (09:35)
[2019-10-22] MEDS: METOPROLOL SUCCINATE XL 25 MG TAB PO SCH (09:35)
--- NOTE | 2019-10-22 11:51 | Progress Note ---
Assessment and Plan Acute on chronic HFrEF TTE reviewed - EF 10%, restrictive diastolic filling, LA severely dilated, RV mod dilated, RV systolic function severely reduced, RA severely dilated, mild to mod MR and TR, RVSP 38mmHg. Cont Toprol XL. Consider addition of ARB nephrology is agreeable. D/c dobutamine gtt. Cont IV lasix BID per nephrology. Obtain strict I&Os and daily weights. Hopeful d/c in AM pending pt tolerates discontinuation of dobuatmine gtt. NICMP TTE reviewed - EF 10%, restrictive diastolic filling, LA severely dilated, RV mod dilated, RV systolic function severely reduced, RA severely dilated, mild to mod MR and TR, RVSP 38mmHg. Cont Toprol XL. Consider addition of ARB nephrology is agreeable. D/c dobutamine gtt. Cont IV lasix BID per nephrology. LHC from [place], [place] obtained - pt underwent LHC in 05/2019 with PCI of RCA into PDA, otherwise no significant CAD, EF 10%. Pt appears to be a poor candidate for LifeVest in setting of longstanding history of noncompliance and polysubstance abuse. Will plan to address AICD candidacy as OP. CAD s/p PCI of RCA Done May 2019 in [place], [place]. Cont ASA 81, brilinta, statin, Toprol XL. Elevated DDimer Chest CTA showed questionable minimal left lower lobe PTE of questionable clinical significance. V/Q scan low prob for PE. Bilateral venous duplex studies negative for DVT. TTE reviewed - EF 10%, restrictive diastolic filling, LA severely dilated, RV mod dilated, RV systolic function severely reduced, RA severely dilated, mild to mod MR and TR, RVSP 38mmHg. NAZ cardiorenal syndrome, vasomotor nephropathy and contrast nephropathy Renal indices improving. Nephrology following. HIV Noncompliant with medication regimen. ID recs noted. HTN Stable. Cont Toprol XL. H/o HLP Lipid panel reviewed. Cont low dose statin. LBBB NSVT Longest run noted was 15 beats on 10/17/2019 @ ~ 5PM. Pt symptomatic. Cont Toprol XL. Monitor electrolytes. Pt appears to be a poor candidate for LifeVest in setting of longstanding history of noncompliance and polysubstance abuse. Will plan to address AICD cand idacy as OP. ACEI Allergy Medical noncompliance H/o polysubstance abuse (tobacco, ETOH, cocaine, marijuana) Cessation encouraged. The patient has been seen in conjunction with Dr. Alcaraz who agrees with the assessment and plan of care. Subjective Date of service: 10/22/19 Principal diagnosis: HF Interval history: pt resting up in chair, states he is feeling better every day. dobutamine gtt infusing. tele reviewed - in SR with 7 and 8 beat runs NSVT overnight, pt asy mptomatic. Objective Last Vital Signs Temp 97.5 F L 10/22/19 08:25 Pulse 96 H 10/22/19 08:25 Resp 18 10/22/19 08:25 BP 107/83 10/22/19 08:25 Pulse Ox 100 10/22/19 08:25 - Physical Examination General: No Apparent Distress HEENT: Positive: PERRL Neck: Positive: neck supple, trachea midline Cardiac: Positive: Reg Rate and Rhythm, S1/S2 Lungs: Positive: Decreased Breath Sounds Neuro: Positive: Grossly Intact Abdomen: Negative: Tender Skin: Negative: Rash Musculoskeletal: No Pain Extremities: Present: edema (trace BLE) - Labs and Meds Comprehensive Metabolic Panel 10/22/19 Range/Units 04:49 Sodium 131 L (137-145) mmol/L Potassium 3.3 L (3.6-5.0) mmol/L Chloride 87.4 L (98-107) mmol/L Carbon Dioxide 29 (22-30) mmol/L BUN 25 H (9-20) mg/dL Creatinine 1.1 (0.8-1.5) mg/dL Glucose 148 H (75-100) mg/dL Calcium 8.8 (8.4-10.2) mg/dL - Imaging and Cardiology EKG: report reviewed, image reviewed Echo: report reviewed - Allied health notes Allied health notes reviewed: nursing
[2019-10-22] MEDS ORDERED: SODIUM CHLORIDE 0.9% 500 ML 500 ML ONE (13:21)
--- NOTE | 2019-10-22 13:43 | Progress Note ---
Assessment and Plan - Patient Problems (1) Acute renal failure Current Visit: Yes Status: Acute Plan to address problem: Possibly in the setting of contrast-induced injury superimposed on prerenal acute kidney injury and cardiorenal syndrome based on review of TTE. Weaned off dobutamine gtt. Renal function improved. Will continue to closely monitor. Continue on lasix 20 mg IV BID, to titrate as needed based on response. (2) Acute and chronic respiratory failure with hypoxia Current Visit: Yes Status: Acute Plan to address problem: Respiratory status remains stable, based on ECHO findings started on lasix 20 mg IV BID . . (3) Heart failure with reduced ejection fraction Current Visit: Yes Status: Chronic Plan to address problem: Results of the echocardiogram reviewed. Patient started on lasix 20 mg IV BID. Need strict I/O. Will monitor closely. (4) Hypokalemia Current Visit: Yes Status: Acute Plan to address problem: Will order for KCl 40 meq PO BID for total of 8 doses, and closely monitor daily labs, especially now that we are restarting his diuretic therapy. (5) Hemoptysis Current Visit: Yes Status: Acute Plan to address problem: Resolved at this time. V/Q report indicates low probability PTH. In this setting, with respiratory status stable and patient showing signs of renal recovery, would recommend avoiding nephrotoxins/contrast exposure. (6) Acidosis Current Visit: Yes Status: Acute Plan to address problem: In the setting of acute renal failure. Resolved at this time. Subjective Date of service: 10/22/19 Principal diagnosis: HF Interval history: dobutamine weaned off this am. Labs noted, renal function is stable, he is diuresing and remains non-oliguric. Objective - Vital Signs Vital signs: Vital Signs - 12hr 10/22/19 10/22/19 10/22/19 04:58 08:25 13:28 Temperature 98.0 F 97.5 F L Pulse Rate 103 H 96 H Respiratory 18 18 Rate Blood Pressure 130/93 107/83 O2 Sat by Pulse 99 100 97 Oximetry - General Appearance General appearance: well-developed, well-nourished EENT: ATNC, PERRL Neck: no JVD Respiratory: Present: Wheezes Cardiology: regular, normal heart rate Gastrointestinal: normal Integumentary: no rash Neurologic: no focal deficit Psychiatric: cooperative - Lab 10/16/19 10:07 10/22/19 04:49 Most recent lab results ABG pH 7.423 pH Units (7.350-7.450) 10/16/19 11:45 ABG pCO2 36.0 mm Hg 10/16/19 11:45 ABG pO2 55.9 mm Hg (80.0-90.0) L 10/16/19 11:45 ABG HCO3 23.0 mmol/L (20.0-26.0) 10/16/19 11:45 ABG O2 Saturation 89.2 % (95.0-99.0) L 10/16/19 11:45 Calcium 8.8 mg/dL (8.4-10.2) 10/22/19 04:49 Magnesium 2.00 mg/dL (1.7-2.3) 10/16/19 16:50 Urine Creatinine 315.9 mg/dL (0.1-20.0) H 10/18/19 Unknown Urine Sodium 10 mmol/L 10/18/19 Unknown - Allied health notes Allied health notes reviewed: nursing Medications & Allergies - Medications Allergies/Adverse Reactions: Allergies TL Inhibitors Adverse Reaction (Verified 07/31/19 07:48) Angioedema Home Medications: Home Medications Medication Instructions Recorded Confirmed Last Taken Type Albuterol INH(or & Nicu Only) 2 puff IH QID PRN #8.5 gram 10/17/19 Unknown Rx [ProAir HFA Inhaler] Metoprolol Succinate [Toprol Xl] 25 mg PO DAILY #30 tab.er.24h 10/17/19 Unknown Rx Torsemide 100 mg PO BID #60 10/17/19 Unknown Rx Active Medications: Generic Name Dose Route Start Last Admin Trade Name Freq PRN Reason Stop Dose Admin Acetaminophen 650 mg 10/16/19 13:45 10/17/19 21:57 Tylenol PO 650 mg Q4H PRN Administration Pain MILD(1-3)/Fever >100.5/PEACOCK Aspirin 81 mg 10/19/19 14:00 10/22/19 09:35 Baby Aspirin PO 81 mg QDAY CESAR Administration Atorvastatin Calcium 20 mg 10/19/19 22:00 10/21/19 22:23 Lipitor PO 20 mg QHS CESAR Administration Atovaquone 1,500 mg 10/19/19 15:00 10/22/19 09:35 Mepron PO Not Given QDAY CESAR Benzonatate 100 mg 10/17/19 06:00 10/22/19 06:42 Tessalon Perles PO 100 mg Q8HR CESAR Administration Furosemide 20 mg 10/21/19 18:00 10/22/19 06:42 Lasix IV 20 mg 0600,1800 CESAR Administration Heparin Sodium (Porcine) 5,000 unit 10/16/19 22:00 10/22/19 09:34 Heparin SUB-Q 5,000 unit Q12HR CESAR Administration Potassium Chloride 10 meq in 100 mls @ 100 mls/hr 10/22/19 10:00 Kcl 10meq/100ml IV 10/22/19 13:59 Q1H CESAR Lidocaine 1 each 10/17/19 15:00 10/22/19 09:35 Lidoderm 5% TD 1 each QDAY CESAR Administration Lorazepam 0.5 mg 10/17/19 02:36 10/21/19 22:23 Ativan PO 0.5 mg QHS CESAR Administration Metoprolol Succinate 25 mg 10/17/19 14:00 10/22/19 09:35 Metoprolol Xl PO 25 mg QDAY CESAR Administration Ondansetron HCl 4 mg 10/16/19 13:45 10/21/19 17:36 Zofran IV 4 mg Q8H PRN Administration Nausea And Vomiting Oxycodone/Acetaminophen 1 tab 10/18/19 00:00 10/22/19 06:42 Percocet 5/325 PO 1 tab Q6H PRN Administration Pain, Moderate (4-6) Potassium Chloride 40 meq 10/22/19 09:00 10/22/19 09:34 K-Dur PO 10/25/19 22:01 40 meq BID CESAR Administration Pseudoephedrine/Acetam/Chlorphenir 20 ml 10/18/19 09:53 10/21/19 18:03 Robitussin Ac PO 20 ml Q4H PRN Administration Cough Sodium Chloride 10 ml 10/16/19 22:00 10/22/19 09:36 Sodium Chloride Flush Syringe 10 Ml IV 10 ml BID CESAR Administration Sodium Chloride 10 ml 10/16/19 13:45 Sodium Chloride Flush Syringe 10 Ml IV PRN PRN LINE FLUSH Ticagrelor 90 mg 10/19/19 14:00 10/22/19 09:34 Brilinta PO 90 mg BID CESAR Administration
[2019-10-22] MEDS: POTASSIUM CHLORIDE 10 MEQ 10 MEQ/100 ML BAG IV SCH ×3 (13:48→18:17)
--- NOTE | 2019-10-22 19:37 | Progress Note ---
Assessment and Plan Assessment and plan: Patient with severe cardiomyopathy with ejection fraction of 10% and acute kidney injury Evaluated by nephrology and cardiology, medications optimized, patient is receiving dobutamine drip --Severe cardiomyopathy; EF of 10% Cardiology following, diuretics, beta blockers, allergic to tl inhibitors Input and output monitoring, on dobutamine drip --Acute on chronic systolic congestive heart failure EF 10% Diuresis on hold due to renal failure, nephrology following. Dobutamine drip per cardiology No TL inhibitor due to angioedema. Beta-juanito, may need LifeVest --Shortness of breath/orthopnea CTA negative, lower extremity Doppler negative, VQ scan negative. Repeat chest x-ray today. --Oliguric acute kidney injury; vasomotor nephropathy Avoid nephrotoxins, mild monitor renal function, nephrology following --History of HIV Not compliance with medications, outpatient ID follow-up PO Atovaquone 1500 mg daily as PCP prophylaxis, avoid Bactrim due to renal failure --Occasional drug use; marijuana Counseling advised to quit occasional drug use --Medical noncompliance ;preventive health counseling performed for 17 minutes DVT prophylaxis; ambulation as tolerated Possible discharge tomorrow if stable Disposition :per cardiology Plan of care is reviewed with the patient and his nurse Case discussed with cardiology, possible discharge tomorrow if stable History Interval history: Patient seen and examined Patient's chart and medications reviewed Patient is receiving dobutamine drip per cardiology Complains of mild shortness of breath and generalized weakness Denies chest pain Denies palpitations Denies nausea or vomiting Vital signs noted Hospitalist Physical - Constitutional Vitals: Temp Pulse Resp BP Pulse Ox 98.5 F 93 H 18 130/82 100 10/22/19 17:54 10/22/19 17:54 10/22/19 17:54 10/22/19 17:54 10/22/19 17:54 General appearance: Present: no acute distress, well-nourished - EENT Eyes: Present: PERRL, EOM intact - Neck Neck: Present: supple, normal ROM - Respiratory Respiratory effort: normal Respiratory: bilateral: diminished, rales, negative: rhonchi, wheezing - Cardiovascular Rhythm: regular Heart Sounds: Present: S1 & S2 - Extremities Extremities: no ischemia, No edema - Abdominal General gastrointestinal: soft, non-tender, non-distended, normal bowel sounds - Integumentary Integumentary: Present: clear, warm - Psychiatric Psychiatric: appropriate mood/affect, cooperative - Neurologic Neurologic: CNII-XII intact, moves all extremities Results - Labs CBC & Chem 7: 10/16/19 10:07 10/22/19 04:49 Labs: Laboratory Last Values WBC 4.0 K/mm3 (4.5-11.0) L 10/16/19 10:07 RBC 4.27 M/mm3 (3.65-5.03) 10/16/19 10:07 Hgb 13.4 gm/dl (11.8-15.2) 10/16/19 10:07 Hct 40.2 % (35.5-45.6) 10/16/19 10:07 MCV 94 fl (84-94) 10/16/19 10:07 MCH 31 pg (28-32) 10/16/19 10:07 MCHC 33 % (32-34) 10/16/19 10:07 RDW 15.5 % (13.2-15.2) H 10/16/19 10:07 Plt Count 223 K/mm3 (140-440) 10/16/19 10:07 Lymph % (Auto) 29.0 % (13.4-35.0) 10/16/19 10:07 [place] % (Auto) 5.8 % (0.0-7.3) 10/16/19 10:07 Eos % (Auto) 1.3 % (0.0-4.3) 10/16/19 10:07 Baso % (Auto) 1.4 % (0.0-1.8) 10/16/19 10:07 Lymph # 1.2 K/mm3 (1.2-5.4) 10/16/19 10:07 [place] # 0.2 K/mm3 (0.0-0.8) 10/16/19 10:07 Eos # 0.1 K/mm3 (0.0-0.4) 10/16/19 10:07 Baso # 0.1 K/mm3 (0.0-0.1) 10/16/19 10:07 Seg Neutrophils % 62.5 % (40.0-70.0) 10/16/19 10:07 Seg Neutrophils # 2.5 K/mm3 (1.8-7.7) 10/16/19 10:07 PT 15.5 Sec. (12.2-14.9) H 10/16/19 10:32 INR 1.21 (0.87-1.13) H 10/16/19 10:32 APTT 35.3 Sec. (24.2-36.6) 10/16/19 10:32 D-Dimer 516.76 ng/mlDDU (0-234) H 10/16/19 10:32 ABG pH 7.423 pH Units (7.350-7.450) 10/16/19 11:45 ABG pCO2 36.0 mm Hg 10/16/19 11:45 ABG pO2 55.9 mm Hg (80.0-90.0) L 10/16/19 11:45 ABG HCO3 23.0 mmol/L (20.0-26.0) 10/16/19 11:45 ABG O2 Saturation 89.2 % (95.0-99.0) L 10/16/19 11:45 ABG O2 Content 16.4 (0.0-44) 10/16/19 11:45 ABG Base Excess -1.0 mmol/L (-2.0-3.0) 10/16/19 11:45 ABG Hemoglobin 13.4 gm/dl (14.0-18.0) L 10/16/19 11:45 ABG Carboxyhemoglobin 2.1 % (0.0-5.0) 10/16/19 11:45 ABG Methemoglobin 0.5 % (0.0-1.5) 10/16/19 11:45 Oxyhemoglobin 86.8 % (95.0-99.0) L 10/16/19 11:45 FiO2 32 % 10/16/19 11:45 Sodium 131 mmol/L (137-145) L 10/22/19 04:49 Potassium 3.3 mmol/L (3.6-5.0) L 10/22/19 04:49 Chloride 87.4 mmol/L (98-107) L 10/22/19 04:49 Carbon Dioxide 29 mmol/L (22-30) 10/22/19 04:49 Anion Gap 18 mmol/L 10/22/19 04:49 BUN 25 mg/dL (9-20) H 10/22/19 04:49 Creatinine 1.1 mg/dL (0.8-1.5) 10/22/19 04:49 Estimated GFR > 60 ml/min 10/22/19 04:49 BUN/Creatinine Ratio 23 % 10/22/19 04:49 Glucose 148 mg/dL (75-100) H 10/22/19 04:49 Calcium 8.8 mg/dL (8.4-10.2) 10/22/19 04:49 Magnesium 2.00 mg/dL (1.7-2.3) 10/16/19 16:50 Total Bilirubin 1.00 mg/dL (0.1-1.2) 10/16/19 10:32 Direct Bilirubin 0.4 mg/dL (0-0.2) H 10/16/19 10:32 Indirect Bilirubin 0.6 mg/dL 10/16/19 10:32 AST 28 units/L (5-40) 10/16/19 10:32 ALT 16 units/L (7-56) 10/16/19 10:32 Alkaline Phosphatase 86 units/L (35-129) 10/16/19 10:32 Total Creatine Kinase 405 units/L (55-170) H 10/16/19 10:32 CK-MB (CK-2) 3.2 ng/mL (0.0-4.0) 10/16/19 10:32 CK-MB (CK-2) Rel Index 0.7 (0-4) 10/16/19 10:32 Troponin T 0.017 ng/mL (0.00-0.029) 10/16/19 16:50 NT-Pro-B Natriuret Pep 4791 pg/mL (0-450) H 10/16/19 10:07 Total Protein 8.0 g/dL (6.3-8.2) 10/16/19 10:32 Albumin 3.7 g/dL (3.9-5) L 10/16/19 10:32 Albumin/Globulin Ratio 0.9 % 10/16/19 10:32 Triglycerides 72 mg/dL (2-149) 10/20/19 05:18 Cholesterol 82 mg/dL (50-199) 10/20/19 05:18 LDL Cholesterol Direct 46 mg/dL (50-130) L 10/20/19 05:18 HDL Cholesterol 28 mg/dL (40-59) L 10/20/19 05:18 Cholesterol/HDL Ratio 2.92 % 10/20/19 05:18 TSH 1.540 mlU/mL (0.270-4.200) 10/16/19 16:50 Free T4 1.23 ng/dL (0.76-1.46) 10/16/19 16:50 Urine Color Yellow (Yellow) 10/16/19 10:52 Urine Turbidity Clear (Clear) 10/16/19 10:52 Urine pH 5.0 (5.0-7.0) 10/16/19 10:52 Ur Specific Meredith 1.015 (1.003-1.030) 10/16/19 10:52 Urine Protein 30 mg/dl mg/dL (Negative) 10/16/19 10:52 Urine Glucose (UA) Neg mg/dL (Negative) 10/16/19 10:52 Urine Ketones Neg mg/dL (Negative) 10/16/19 10:52 Urine Blood Neg (Negative) 10/16/19 10:52 Urine Nitrite Neg (Negative) 10/16/19 10:52 Urine Bilirubin Neg (Negative) 10/16/19 10:52 Urine Urobilinogen < 2.0 mg/dL (<2.0) 10/16/19 10:52 Ur Leukocyte Esterase Neg (Negative) 10/16/19 10:52 Urine WBC (Auto) < 1.0 /HPF (0.0-6.0) 10/16/19 10:52 Urine RBC (Auto) 2.0 /HPF (0.0-6.0) 10/16/19 10:52 Urine Mucus Few /HPF 10/16/19 10:52 Urine Creatinine 315.9 mg/dL (0.1-20.0) H 10/18/19 Unknown Urine Sodium 10 mmol/L 10/18/19 Unknown Urine Potassium 28.30 mmol/L 10/18/19 Unknown Urine Urea Nitrogen 394 10/18/19 Unknown Urine Opiates Screen Presumptive negative 10/16/19 10:52 Urine Methadone Screen Presumptive negative 10/16/19 10:52 Ur Barbiturates Screen Presumptive negative 10/16/19 10:52 Ur Phencyclidine Scrn Presumptive negative 10/16/19 10:52 Ur Amphetamines Screen Presumptive negative 10/16/19 10:52 U Benzodiazepines Scrn Presumptive negative 10/16/19 10:52 Urine Cocaine Screen Presumptive negative 10/16/19 10:52 U Marijuana (THC) Screen Presumptive positive 10/16/19 10:52 Drugs of Abuse Note Disclamer 10/16/19 10:52 Active Medications - Current Medications Current Medications: Generic Name Dose Route Start Last Admin Trade Name Freq PRN Reason Stop Dose Admin Acetaminophen 650 mg 10/16/19 13:45 10/17/19 21:57 Tylenol PO 650 mg Q4H PRN Administration Pain MILD(1-3)/Fever >100.5/PEACOCK Aspirin 81 mg 10/19/19 14:00 10/22/19 09:35 Baby Aspirin PO 81 mg QDAY CESAR Administration Atorvastatin Calcium 20 mg 10/19/19 22:00 10/21/19 22:23 Lipitor PO 20 mg QHS CESAR Administration Atovaquone 1,500 mg 10/19/19 15:00 10/22/19 09:35 Mepron PO Not Given QDAY CESAR Benzonatate 100 mg 10/17/19 06:00 10/22/19 13:49 Tessalon Perles PO 100 mg Q8HR ECSAR Administration Furosemide 20 mg 10/21/19 18:00 10/22/19 17:56 Lasix IV 20 mg 0600,1800 CESAR Administration Heparin Sodium (Porcine) 5,000 unit 10/16/19 22:00 10/22/19 09:34 Heparin SUB-Q 5,000 unit Q12HR CESAR Administration Lidocaine 1 each 10/17/19 15:00 10/22/19 09:35 Lidoderm 5% TD 1 each QDAY CESAR Administration Lorazepam 0.5 mg 10/17/19 02:36 10/21/19 22:23 Ativan PO 0.5 mg QHS CESAR Administration Metoprolol Succinate 25 mg 10/17/19 14:00 10/22/19 09:35 Metoprolol Xl PO 25 mg QDAY CESAR Administration Ondansetron HCl 4 mg 10/16/19 13:45 10/21/19 17:36 Zofran IV 4 mg Q8H PRN Administration Nausea And Vomiting Oxycodone/Acetaminophen 1 tab 10/18/19 00:00 10/22/19 13:47 Percocet 5/325 PO 1 tab Q6H PRN Administration Pain, Moderate (4-6) Potassium Chloride 40 meq 10/22/19 09:00 10/22/19 09:34 K-Dur PO 10/25/19 22:01 40 meq BID CESAR Administration Pseudoephedrine/Acetam/Chlorphenir 20 ml 10/18/19 09:53 10/21/19 18:03 Robitussin Ac PO 20 ml Q4H PRN Administration Cough Sodium Chloride 10 ml 10/16/19 22:00 10/22/19 09:36 Sodium Chloride Flush Syringe 10 Ml IV 10 ml BID CESAR Administration Sodium Chloride 10 ml 10/16/19 13:45 Sodium Chloride Flush Syringe 10 Ml IV PRN PRN LINE FLUSH Ticagrelor 90 mg 10/19/19 14:00 10/22/19 09:34 Brilinta PO 90 mg BID CESAR Administration
[2019-10-22] MEDS: LORazepam 0.5 MG TAB PO SCH (21:21)
[2019-10-23] MEDS: oxyCODONE /ACETAMINOPHEN 5-325MG TAB PO PRN ×3 (02:13→21:43)
[2019-10-23 06:02] LABS: Calcium 9.5 mg/dL (8.4-10.2)
[2019-10-23] MEDS: FUROSEMIDE 20 MG/2 ML INJ IV SCH ×2 (06:52→18:23)
[2019-10-23] MEDS: BENZONATATE 100 MG CAP PO SCH ×3 (06:52→21:44)
[2019-10-23] MEDS: LIDOCAINE 5% 1 EACH PATCH TD SCH (10:04)
[2019-10-23] MEDS: ASPIRIN 81 MG TAB CHEW PO SCH (10:07)
[2019-10-23] MEDS: TICAGRELOR 90 MG TAB PO SCH ×2 (10:08→21:45)
[2019-10-23] MEDS: HEPARIN 5,000 UNIT/1 ML VIAL SUB-Q SCH ×2 (10:08→21:45)
--- NOTE | 2019-10-23 10:58 | Progress Note ---
Assessment and Plan Acute on chronic HFrEF TTE reviewed - EF 10%, restrictive diastolic filling, LA severely dilated, RV mod dilated, RV systolic function severely reduced, RA severely dilated, mild to mod MR and TR, RVSP 38mmHg. Cont Toprol XL. Consider addition of ARB nephrology is agreeable. Pt remains SOB with minimal exertion. S/p dobutamine gtt x 3 days, d/c'd yesterday. Resume dobutamine gtt today. Cont IV lasix BID per nephrology. Obtain strict I&Os and daily weights. [facility] TTE reviewed - EF 10%, restrictive diastolic filling, LA severely dilated, RV mod dilated, RV systolic function severely reduced, RA severely dilated, mild to mod MR and TR, RVSP 38mmHg. Cont Toprol XL. Consider addition of ARB nephrology is agreeable. Pt remains SOB with minimal exertion. S/p dobutamine gtt x 3 days, d/c'd yesterday. Resume dobutamine gtt today. Cont IV lasix BID per nephrology. LHC from [place], [place] obtained - pt underwent LHC in 05/2019 with PCI of RCA into PDA, otherwise no significant CAD, EF 10%. Pt appears to be a poor candidate for LifeVest in setting of longstanding history of noncompliance and polysubstance abuse. Will plan to address AICD candidacy as OP. CAD s/p PCI of RCA Done May 2019 in [place], [place]. Cont ASA 81, brilinta, statin, Toprol XL. Elevated DDimer Chest CTA showed questionable minimal left lower lobe PTE of questionable clinical significance. V/Q scan low prob for PE. Bilateral venous duplex studies negative for DVT. TTE reviewed - EF 10%, restrictive diastolic filling, LA severely dilated, RV mod dilated, RV systolic function severely reduced, RA severely dilated, mild to mod MR and TR, RVSP 38mmHg. NAZ cardiorenal syndrome, vasomotor nephropathy and contrast nephropathy Renal indices worsened this AM since discontinuation of dobutamine gtt yesterday. resume dobutamine gtt today. Nephrology following. HIV Noncompliant with medication regimen. ID recs noted. HTN Stable. Cont Toprol XL. H/o HLP Lipid panel reviewed. Cont low dose statin. LBBB NSVT Longest run noted was 15 beats on 10/17/2019 @ ~ 5PM. Pt symptomatic. Cont Toprol XL. Monitor electrolytes. Pt appears to be a poor candidate for LifeVest in setting of longstanding history of noncompliance and polysubstance abuse. Will plan to address AICD candidacy as OP. ACEI Allergy Medical noncompliance H/o polysubstance abuse (tobacco, ETOH, cocaine, marijuana) Cessation encouraged. The patient has been seen in conjunction with Dr. Meyer who agrees with the assessment and plan of care. Subjective Date of service: 10/23/19 Principal diagnosis: HF Interval history: pt sitting upright in bed, he is noted to be quite SOB, says he just got back from the bathroom. he is significantly SOB with minimal exertion. in SR on tele, HR 60s with SB HR low 49bpm overnight, no NSVT overnight. Objective Last Vital Signs Temp 98.0 F 10/23/19 04:25 Pulse 79 10/23/19 04:25 Resp 20 10/23/19 08:00 BP 125/92 10/23/19 04:25 Pulse Ox 99 10/23/19 10:47 - Physical Examination General: No Apparent Distress HEENT: Positive: PERRL Neck: Positive: neck supple, trachea midline Cardiac: Positive: Reg Rate and Rhythm, S1/S2 Lungs: Positive: Decreased Breath Sounds Neuro: Positive: Grossly Intact Abdomen: Negative: Tender Skin: Negative: Rash Musculoskeletal: No Pain Extremities: Present: edema (trace BLE) - Labs and Meds Comprehensive Metabolic Panel 10/23/19 Range/Units 04:49 Sodium 131 L (137-145) mmol/L Potassium 4.9 D (3.6-5.0) mmol/L Chloride 83.2 L (98-107) mmol/L Carbon Dioxide 21 L D (22-30) mmol/L BUN 35 H (9-20) mg/dL Creatinine 1.9 H D (0.8-1.5) mg/dL Glucose 64 L (75-100) mg/dL Calcium 9.5 (8.4-10.2) mg/dL - Imaging and Cardiology EKG: report reviewed, image reviewed Echo: report reviewed - Allied health notes Allied health notes reviewed: nursing
[2019-10-23] MEDS: ATOVAQUONE 750 MG/5 ML ORAL SUSP PO SCH (11:00)
[2019-10-23] MEDS: POTASSIUM CHLORIDE ER 20 MEQ TAB PO SCH ×2 (13:26→21:47)
[2019-10-23] MEDS: METOPROLOL SUCCINATE XL 25 MG TAB PO SCH (13:28)
[2019-10-23] MEDS: DOBUTamine/D5W 500 MG/250 ML 500 MG/250 ML BAG IV SCH (13:53)
--- NOTE | 2019-10-23 17:04 | Progress Note ---
Assessment and Plan - Patient Problems (1) Acute renal failure Current Visit: Yes Status: Acute Plan to address problem: Possibly in the setting of contrast-induced injury superimposed on prerenal acute kidney injury and cardiorenal syndrome based on review of TTE. Weaned off dobutamine gtt. Dobutamine gtt was restarted secondary to worsening shortness of breath and worsening renal function noted this am. Continue on lasix 20 mg IV BID, to titrate as needed based on response. (2) Acute and chronic respiratory failure with hypoxia Current Visit: Yes Status: Acute Plan to address problem: Respiratory status worse this am, restarted on dobutamine gtt. Continue with diuretic therapy. (3) Heart failure with reduced ejection fraction Current Visit: Yes Status: Chronic Plan to address problem: Results of the echocardiogram reviewed. Patient started on lasix 20 mg IV BID. Need strict I/O. Will monitor closely. (4) Hypokalemia Current Visit: Yes Status: Acute Plan to address problem: Will order for KCl 40 meq PO BID for total of 8 doses, and closely monitor daily labs, especially now that we are restarting his diuretic therapy. (5) Hemoptysis Current Visit: Yes Status: Acute Plan to address problem: Resolved at this time. V/Q report indicates low probability PTH. In this setting, with respiratory status stable and patient showing signs of renal kamini very, would recommend avoiding nephrotoxins/contrast exposure. (6) Acidosis Current Visit: Yes Status: Acute Plan to address problem: In the setting of acute renal failure. Resolved at this time. Subjective Date of service: 10/23/19 Principal diagnosis: HF Interval history: Patient restarted on dobutamine gtt. Continues with IV lasix BID. Renal function noted this am, after which patient was restarted back on dobutamine gtt. He remains short of breath, with noticeable dyspnea on exertion. Objective - Vital Signs Vital signs: Vital Signs - 12hr 10/23/19 10/23/19 10/23/19 08:00 09:19 10:47 Temperature 97.9 F Pulse Rate 77 Respiratory 20 18 Rate Blood Pressure 140/105 O2 Sat by Pulse 100 99 Oximetry 10/23/19 10/23/19 13:23 13:28 Temperature 97.4 F L Pulse Rate 83 77 Respiratory 18 Rate Blood Pressure 127/93 125/73 O2 Sat by Pulse 100 Oximetry - General Appearance General appearance: well-developed, well-nourished EENT: ATNC, PERRL Neck: no thyromegaly Respiratory: Present: Decreased Breath Sounds Cardiology: regular Gastrointestinal: normal, normoactive bowel sounds Integumentary: no rash, warm and dry Neurologic: no focal deficit, alert and oriented x3 Psychiatric: mood/affect appropriate, cooperative - Lab 10/16/19 10:07 10/23/19 04:49 Most recent lab results ABG pH 7.423 pH Units (7.350-7.450) 10/16/19 11:45 ABG pCO2 36.0 mm Hg 10/16/19 11:45 ABG pO2 55.9 mm Hg (80.0-90.0) L 10/16/19 11:45 ABG HCO3 23.0 mmol/L (20.0-26.0) 10/16/19 11:45 ABG O2 Saturation 89.2 % (95.0-99.0) L 10/16/19 11:45 Calcium 9.5 mg/dL (8.4-10.2) 10/23/19 04:49 Magnesium 2.00 mg/dL (1.7-2.3) 10/16/19 16:50 Urine Creatinine 315.9 mg/dL (0.1-20.0) H 10/18/19 Unknown Urine Sodium 10 mmol/L 10/18/19 Unknown - Allied health notes Allied health notes reviewed: nursing Medications & Allergies - Medications Allergies/Adverse Reactions: Allergies TL Inhibitors Adverse Reaction (Verified 07/31/19 07:48) Angioedema Home Medications: Home Medications Medication Instructions Recorded Confirmed Last Taken Type Albuterol INH(or & Nicu Only) 2 puff IH QID PRN #8.5 gram 10/17/19 Unknown Rx [ProAir HFA Inhaler] Metoprolol Succinate [Toprol Xl] 25 mg PO DAILY #30 tab.er.24h 10/17/19 Unknown Rx Torsemide 100 mg PO BID #60 10/17/19 Unknown Rx Active Medications: Generic Name Dose Route Start Last Admin Trade Name Freq PRN Reason Stop Dose Admin Acetaminophen 650 mg 10/16/19 13:45 10/17/19 21:57 Tylenol PO 650 mg Q4H PRN Administration Pain MILD(1-3)/Fever >100.5/PEACOCK Aspirin 81 mg 10/19/19 14:00 10/23/19 10:07 Baby Aspirin PO Not Given QDAY CESAR Atorvastatin Calcium 20 mg 10/19/19 22:00 10/22/19 21:21 Lipitor PO 20 mg QHS CESAR Administration Atovaquone 1,500 mg 10/19/19 15:00 10/23/19 11:00 Mepron PO Not Given QDAY CESAR Benzonatate 100 mg 10/17/19 06:00 10/23/19 13:35 Tessalon Perles PO 100 mg Q8HR CESAR Administration Furosemide 20 mg 10/21/19 18:00 10/23/19 06:52 Lasix IV 20 mg 0600,1800 CESAR Administration Heparin Sodium (Porcine) 5,000 unit 10/16/19 22:00 10/23/19 10:08 Heparin SUB-Q Not Given Q12HR [facility] Dobutamine HCl/Dextrose 500 mg in 250 mls @ 12.54 mls/hr 10/23/19 11:00 10/23/19 13:53 Dobutrex Drip 500mg/D5w 250ml IV 5 mcg/kg/min TITR CESAR 12.54 mls/hr Administration 5 MCG/KG/MIN Lidocaine 1 each 10/17/19 15:00 10/23/19 10:04 Lidoderm 5% TD 1 each QDAY CESAR Administration Lorazepam 0.5 mg 10/17/19 02:36 10/22/19 21:21 Ativan PO 0.5 mg QHS CESAR Administration Metoprolol Succinate 25 mg 10/17/19 14:00 10/23/19 13:28 Metoprolol Xl PO 25 mg QDAY CESAR Administration Ondansetron HCl 4 mg 10/16/19 13:45 10/21/19 17:36 Zofran IV 4 mg Q8H PRN Administration Nausea And Vomiting Oxycodone/Acetaminophen 1 tab 10/18/19 00:00 10/23/19 10:04 Percocet 5/325 PO 1 tab Q6H PRN Administration Pain, Moderate (4-6) Potassium Chloride 40 meq 10/22/19 09:00 10/23/19 13:26 K-Dur PO 10/25/19 22:01 40 meq BID CESAR Administration Pseudoephedrine/Acetam/Chlorphenir 20 ml 10/18/19 09:53 10/21/19 18:03 Robitussin Ac PO 20 ml Q4H PRN Administration Cough Sodium Chloride 10 ml 10/16/19 22:00 10/23/19 10:08 Sodium Chloride Flush Syringe 10 Ml IV 10 ml BID CESAR Administration Sodium Chloride 10 ml 10/16/19 13:45 Sodium Chloride Flush Syringe 10 Ml IV PRN PRN LINE FLUSH Ticagrelor 90 mg 10/19/19 14:00 10/23/19 10:08 Brilinta PO Not Given BID CESAR
--- NOTE | 2019-10-23 17:21 | Progress Note ---
Assessment and Plan Assessment and plan: Patient with severe cardiomyopathy with ejection fraction of 10% and acute kidney injury Evaluated by nephrology and cardiology, medications optimized, patient completed dobutamine drip yesterday However today patient has severe shortness of breath, acute renal failure, Creatinine jumped from 1.1- 1.9 today --Acute kidney injury; vasomotor nephropathy Worsening Renal function, cardiology started dobutamine again today Avoid nephrotoxins, nephrology following --Severe cardiomyopathy; EF of 10% Cardiology following, diuretics, beta blockers, allergic to tl inhibitors Input and output monitoring, on dobutamine drip --Acute on chronic systolic congestive heart failure EF 10% Diuresis on hold due to renal failure, nephrology following. Dobutamine drip per cardiology No TL inhibitor due to angioedema. Beta-juanito, may need LifeVest --Nonischemic cardiomyopathy; --Shortness of breath/orthopnea CTA negative, lower extremity Doppler negative, VQ scan negative. Repeat chest x-ray today. --History of HIV Not compliance with medications, outpatient ID follow-up PO Atovaquone 1500 mg daily as PCP prophylaxis, avoid Bactrim due to renal failure --Occasional drug use; marijuana Counseling advised to quit occasional drug use --Medical noncompliance ;preventive health counseling performed for 17 minutes DVT prophylaxis; ambulation as tolerated Possible discharge tomorrow if stable Disposition :per cardiology Plan of care is reviewed with the patient and his nurse Case discussed with cardiology, possible discharge tomorrow if stable History Interval history: Patient seen and examined Consults recommendations, overnight events and medications reviewed After discontinuing dobutamine yesterday, patient's creatinine jumped to 1.9 Cardiology restarted dobutamine today Patient complains of shortness of breath, not feeling well Complaints of fatigue and weakness Vital signs noted Hospitalist Physical - Constitutional Vitals: Temp Pulse Resp BP Pulse Ox 97.4 F L 77 18 125/73 100 10/23/19 13:23 10/23/19 13:28 10/23/19 13:23 10/23/19 13:28 10/23/19 13:23 General appearance: Present: no acute distress, well-nourished - EENT Eyes: Present: PERRL, EOM intact - Neck Neck: Present: supple, normal ROM - Respiratory Respiratory effort: normal Respiratory: bilateral: diminished, rales, negative: rhonchi, wheezing - Cardiovascular Rhythm: regular Heart Sounds: Present: S1 & S2 - Extremities Extremities: no ischemia, No edema - Abdominal General gastrointestinal: soft, non-tender, non-distended, normal bowel sounds - Integumentary Integumentary: Present: clear, warm - Psychiatric Psychiatric: appropriate mood/affect, cooperative - Neurologic Neurologic: moves all extremities Results - Labs CBC & Chem 7: 10/16/19 10:07 10/23/19 04:49 Labs: Laboratory Last Values WBC 4.0 K/mm3 (4.5-11.0) L 10/16/19 10:07 RBC 4.27 M/mm3 (3.65-5.03) 10/16/19 10:07 Hgb 13.4 gm/dl (11.8-15.2) 10/16/19 10:07 Hct 40.2 % (35.5-45.6) 10/16/19 10:07 MCV 94 fl (84-94) 10/16/19 10:07 MCH 31 pg (28-32) 10/16/19 10:07 MCHC 33 % (32-34) 10/16/19 10:07 RDW 15.5 % (13.2-15.2) H 10/16/19 10:07 Plt Count 223 K/mm3 (140-440) 10/16/19 10:07 Lymph % (Auto) 29.0 % (13.4-35.0) 10/16/19 10:07 [place] % (Auto) 5.8 % (0.0-7.3) 10/16/19 10:07 Eos % (Auto) 1.3 % (0.0-4.3) 10/16/19 10:07 Baso % (Auto) 1.4 % (0.0-1.8) 10/16/19 10:07 Lymph # 1.2 K/mm3 (1.2-5.4) 10/16/19 10:07 [place] # 0.2 K/mm3 (0.0-0.8) 10/16/19 10:07 Eos # 0.1 K/mm3 (0.0-0.4) 10/16/19 10:07 Baso # 0.1 K/mm3 (0.0-0.1) 10/16/19 10:07 Seg Neutrophils % 62.5 % (40.0-70.0) 10/16/19 10:07 Seg Neutrophils # 2.5 K/mm3 (1.8-7.7) 10/16/19 10:07 PT 15.5 Sec. (12.2-14.9) H 10/16/19 10:32 INR 1.21 (0.87-1.13) H 10/16/19 10:32 APTT 35.3 Sec. (24.2-36.6) 10/16/19 10:32 D-Dimer 516.76 ng/mlDDU (0-234) H 10/16/19 10:32 ABG pH 7.423 pH Units (7.350-7.450) 10/16/19 11:45 ABG pCO2 36.0 mm Hg 10/16/19 11:45 ABG pO2 55.9 mm Hg (80.0-90.0) L 10/16/19 11:45 ABG HCO3 23.0 mmol/L (20.0-26.0) 10/16/19 11:45 ABG O2 Saturation 89.2 % (95.0-99.0) L 10/16/19 11:45 ABG O2 Content 16.4 (0.0-44) 10/16/19 11:45 ABG Base Excess -1.0 mmol/L (-2.0-3.0) 10/16/19 11:45 ABG Hemoglobin 13.4 gm/dl (14.0-18.0) L 10/16/19 11:45 ABG Carboxyhemoglobin 2.1 % (0.0-5.0) 10/16/19 11:45 ABG Methemoglobin 0.5 % (0.0-1.5) 10/16/19 11:45 Oxyhemoglobin 86.8 % (95.0-99.0) L 10/16/19 11:45 FiO2 32 % 10/16/19 11:45 Sodium 131 mmol/L (137-145) L 10/23/19 04:49 Potassium 4.9 mmol/L (3.6-5.0) D 10/23/19 04:49 Chloride 83.2 mmol/L (98-107) L 10/23/19 04:49 Carbon Dioxide 21 mmol/L (22-30) L D 10/23/19 04:49 Anion Gap 32 mmol/L 10/23/19 04:49 BUN 35 mg/dL (9-20) H 10/23/19 04:49 Creatinine 1.9 mg/dL (0.8-1.5) H D 10/23/19 04:49 Estimated GFR 47 ml/min 10/23/19 04:49 BUN/Creatinine Ratio 18 % 10/23/19 04:49 Glucose 64 mg/dL (75-100) L 10/23/19 04:49 Calcium 9.5 mg/dL (8.4-10.2) 10/23/19 04:49 Magnesium 2.00 mg/dL (1.7-2.3) 10/16/19 16:50 Total Bilirubin 1.00 mg/dL (0.1-1.2) 10/16/19 10:32 Direct Bilirubin 0.4 mg/dL (0-0.2) H 10/16/19 10:32 Indirect Bilirubin 0.6 mg/dL 10/16/19 10:32 AST 28 units/L (5-40) 10/16/19 10:32 ALT 16 units/L (7-56) 10/16/19 10:32 Alkaline Phosphatase 86 units/L (35-129) 10/16/19 10:32 Total Creatine Kinase 405 units/L (55-170) H 10/16/19 10:32 CK-MB (CK-2) 3.2 ng/mL (0.0-4.0) 10/16/19 10:32 CK-MB (CK-2) Rel Index 0.7 (0-4) 10/16/19 10:32 Troponin T 0.017 ng/mL (0.00-0.029) 10/16/19 16:50 NT-Pro-B Natriuret Pep 4791 pg/mL (0-450) H 10/16/19 10:07 Total Protein 8.0 g/dL (6.3-8.2) 10/16/19 10:32 Albumin 3.7 g/dL (3.9-5) L 10/16/19 10:32 Albumin/Globulin Ratio 0.9 % 10/16/19 10:32 Triglycerides 72 mg/dL (2-149) 10/20/19 05:18 Cholesterol 82 mg/dL (50-199) 10/20/19 05:18 LDL Cholesterol Direct 46 mg/dL (50-130) L 10/20/19 05:18 HDL Cholesterol 28 mg/dL (40-59) L 10/20/19 05:18 Cholesterol/HDL Ratio 2.92 % 10/20/19 05:18 TSH 1.540 mlU/mL (0.270-4.200) 10/16/19 16:50 Free T4 1.23 ng/dL (0.76-1.46) 10/16/19 16:50 Urine Color Yellow (Yellow) 10/16/19 10:52 Urine Turbidity Clear (Clear) 10/16/19 10:52 Urine pH 5.0 (5.0-7.0) 10/16/19 10:52 Ur Specific [place] 1.015 (1.003-1.030) 10/16/19 10:52 Urine Protein 30 mg/dl mg/dL (Negative) 10/16/19 10:52 Urine Glucose (UA) Neg mg/dL (Negative) 10/16/19 10:52 Urine Ketones Neg mg/dL (Negative) 10/16/19 10:52 Urine Blood Neg (Negative) 10/16/19 10:52 Urine Nitrite Neg (Negative) 10/16/19 10:52 Urine Bilirubin Neg (Negative) 10/16/19 10:52 Urine Urobilinogen < 2.0 mg/dL (<2.0) 10/16/19 10:52 Ur Leukocyte Esterase Neg (Negative) 10/16/19 10:52 Urine WBC (Auto) < 1.0 /HPF (0.0-6.0) 10/16/19 10:52 Urine RBC (Auto) 2.0 /HPF (0.0-6.0) 10/16/19 10:52 Urine Mucus Few /HPF 10/16/19 10:52 Urine Creatinine 315.9 mg/dL (0.1-20.0) H 10/18/19 Unknown Urine Sodium 10 mmol/L 10/18/19 Unknown Urine Potassium 28.30 mmol/L 10/18/19 Unknown Urine Urea Nitrogen 394 10/18/19 Unknown Urine Opiates Screen Presumptive negative 10/16/19 10:52 Urine Methadone Screen Presumptive negative 10/16/19 10:52 Ur Barbiturates Screen Presumptive negative 10/16/19 10:52 Ur Phencyclidine Scrn Presumptive negative 10/16/19 10:52 Ur Amphetamines Screen Presumptive negative 10/16/19 10:52 U Benzodiazepines Scrn Presumptive negative 10/16/19 10:52 Urine Cocaine Screen Presumptive negative 10/16/19 10:52 U Marijuana (THC) Screen Presumptive positive 10/16/19 10:52 Drugs of Abuse Note Disclamer 10/16/19 10:52 Active Medications - Current Medications Current Medications: Generic Name Dose Route Start Last Admin Trade Name Freq PRN Reason Stop Dose Admin Acetaminophen 650 mg 10/16/19 13:45 10/17/19 21:57 Tylenol PO 650 mg Q4H PRN Administration Pain MILD(1-3)/Fever >100.5/PEACOCK Aspirin 81 mg 10/19/19 14:00 10/23/19 10:07 Baby Aspirin PO Not Given QDAY CESAR Atorvastatin Calcium 20 mg 10/19/19 22:00 10/22/19 21:21 Lipitor PO 20 mg QHS CESAR Administration Atovaquone 1,500 mg 10/19/19 15:00 10/23/19 11:00 Mepron PO Not Given QDAY CESAR Benzonatate 100 mg 10/17/19 06:00 10/23/19 13:35 Tessalon Perles PO 100 mg Q8HR CESAR Administration Furosemide 20 mg 10/21/19 18:00 10/23/19 06:52 Lasix IV 20 mg 0600,1800 CESAR Administration Heparin Sodium (Porcine) 5,000 unit 10/16/19 22:00 10/23/19 10:08 Heparin SUB-Q Not Given Q12HR CESAR Dobutamine HCl/Dextrose 500 mg in 250 mls @ 12.54 mls/hr 10/23/19 11:00 10/23/19 13:53 Dobutrex Drip 500mg/D5w 250ml IV 5 mcg/kg/min TITR CESAR 12.54 mls/hr Administration 5 MCG/KG/MIN Lidocaine 1 each 10/17/19 15:00 10/23/19 10:04 Lidoderm 5% TD 1 each QDAY CESAR Administration Lorazepam 0.5 mg 10/17/19 02:36 10/22/19 21:21 Ativan PO 0.5 mg QHS CESAR Administration Metoprolol Succinate 25 mg 10/17/19 14:00 10/23/19 13:28 Metoprolol Xl PO 25 mg QDAY CESAR Administration Ondansetron HCl 4 mg 10/16/19 13:45 10/21/19 17:36 Zofran IV 4 mg Q8H PRN Administration Nausea And Vomiting Oxycodone/Acetaminophen 1 tab 10/18/19 00:00 10/23/19 10:04 Percocet 5/325 PO 1 tab Q6H PRN Administration Pain, Moderate (4-6) Potassium Chloride 40 meq 10/22/19 09:00 10/23/19 13:26 K-Dur PO 10/25/19 22:01 40 meq BID CESAR Administration Pseudoephedrine/Acetam/Chlorphenir 20 ml 10/18/19 09:53 10/21/19 18:03 Robitussin Ac PO 20 ml Q4H PRN Administration Cough Sodium Chloride 10 ml 10/16/19 22:00 10/23/19 10:08 Sodium Chloride Flush Syringe 10 Ml IV 10 ml BID CESAR Administration Sodium Chloride 10 ml 10/16/19 13:45 Sodium Chloride Flush Syringe 10 Ml IV PRN PRN LINE FLUSH Ticagrelor 90 mg 10/19/19 14:00 10/23/19 10:08 Brilinta PO Not Given BID CESAR Nutrition/Malnutrition Assess - Dietary Evaluation Nutrition/Malnutrition Findings: Nutrition Notes Start: 10/23/19 12:07 Freq: Status: Active Protocol: Document 10/23/19 12:07 AP (Rec: 10/23/19 12:22 AP [id number]) Co-Sign 10/23/19 12:07 LP Nutrition Notes Need for Assessment generated from: LOS Initial or Follow up Assessment Current Diagnosis Coronary Artery Disease, Hypertension,Heart Failure, Respiratory Failure, Hyperlipidemia Other Pertinent Diagnosis HIV, acidosis, SOB Current Diet Cardiac Labs/Tests Na 131 BUN 35 Cr 1.9 BG 64 Pertinent Medications percocet Lasix Ativan Zofran Height 6 ft 1 in Weight 83.6 kg [place] Body Weight (kg) 83.63 BMI 24.3 Intake Prior to Admission Poor Weight Status Appropriate Subjective/Other Information LOS. Pt states no recent weight loss. Pt states poor PO intakes and poor appetite. No wasting noted. Pt does not like Ensure at all, noted multiple unopened in room. Pt says he just "can't". Encouraged pt to drink one or two a day so he could get some nutrition instay. Pt just shook his head. Pt adament to get ativan for his building anxiety. Burn Absent Trauma Absent GI Symptoms None Current % PO Poor (25-49%) Minimum of two criteria No Energy Intake (severe) < or equal to 50% Estimated Energy Requirement > or equal to 5 days #1 Nutrition Diagnosis Inadequate oral intake Etiology HIV, SOB As Evidenced by Signs and Symptoms Pt states poor PO intakes and poor appetite [employer]. Is patient on ventilator? No Is Patient Ambulatory and/or Out of Bed Yes REE-([facility]-ambulatory/OOB) [ 2313.844 [id number]] Calculation Used for Recommendations [facility] Additional Notes PRO needs: 66-83g/day (0.8-1g/ kg) Fluid: Per 1500ml Nutrition Intervention Change Diet Order: Continue regular Add Supplement/Snack (indicate name/kcal Ensure Enlive once a day /protein ) Provides kCal: 350 Provides Protein (gm) 20 Goal #1 Pt meet >75% of kcal/PRO needs Anticipated Discharge Needs: Cardiac Follow-Up By: 10/26/19 Additional Comments F/U for PO intakes. ONS tolerance.
[2019-10-23] MEDS: LORazepam 0.5 MG TAB PO SCH (21:43)
[2019-10-24] MEDS: oxyCODONE /ACETAMINOPHEN 5-325MG TAB PO PRN ×2 (03:52→22:02)
[2019-10-24 06:53] LABS: Calcium 8.7 mg/dL (8.4-10.2)
[2019-10-24] MEDS: FUROSEMIDE 20 MG/2 ML INJ IV SCH ×2 (07:32→11:31)
[2019-10-24] MEDS: BENZONATATE 100 MG CAP PO SCH ×3 (07:33→21:54)
--- NOTE | 2019-10-24 10:05 | Progress Note ---
Assessment and Plan Assessment and plan: Patient with severe cardiomyopathy with ejection fraction of 10% and acute kidney injury Evaluated by nephrology and cardiology, medications optimized, patient completed dobutamine drip yesterday However today patient has severe shortness of breath, acute renal failure, Creatinine jumped from 1.1- 1.9 today --Severe hyponatremia; management per nephrology Closely monitor electrolytes --Acute kidney injury; vasomotor nephropathy Worsening Renal function, cardiology started dobutamine again today Avoid nephrotoxins, nephrology following --Severe cardiomyopathy; EF of 10% Cardiology following, diuretics, beta blockers, allergic to tl inhibitors Input and output monitoring, on dobutamine drip --Acute on chronic systolic congestive heart failure EF 10% Diuresis on hold due to renal failure, nephrology following. Dobutamine drip per cardiology No TL inhibitor due to angioedema. Beta-juanito, may need LifeVest --Nonischemic cardiomyopathy; --Shortness of breath/orthopnea CTA negative, lower extremity Doppler negative, VQ scan negative. Repeat chest x-ray today. --History of HIV Not compliance with medications, outpatient ID follow-up PO Atovaquone 1500 mg daily as PCP prophylaxis, avoid Bactrim due to renal failure --Occasional drug use; marijuana Counseling advised to quit occasional drug use --Medical noncompliance ;preventive health counseling performed for 17 minutes DVT prophylaxis; ambulation as tolerated Possible discharge tomorrow if stable Disposition :per cardiology Plan of care is reviewed with the patient and his nurse Case discussed with cardiology, possible discharge tomorrow if stable History Interval history: Complains of generalized weakness, noncompliant with medications Refusing treatment, cardiology and nephrology following Complains of mild shortness of breath denies chest pain Vital signs noted Hospitalist Physical - Constitutional Vitals: Temp Pulse Resp BP Pulse Ox 98.6 F 66 18 113/89 96 10/24/19 07:53 10/24/19 07:53 10/24/19 07:53 10/24/19 07:53 10/24/19 07:53 General appearance: Present: no acute distress, well-nourished - EENT Eyes: Present: PERRL, EOM intact - Neck Neck: Present: supple, normal ROM - Respiratory Respiratory effort: normal Respiratory: bilateral: diminished, negative: rales, rhonchi, wheezing - Cardiovascular Rhythm: regular Heart Sounds: Present: S1 & S2 - Extremities Extremities: no ischemia, No edema - Abdominal General gastrointestinal: soft, non-tender, non-distended, normal bowel sounds - Integumentary Integumentary: Present: clear, warm - Psychiatric Psychiatric: appropriate mood/affect, cooperative - Neurologic Neurologic: moves all extremities Results - Labs CBC & Chem 7: 10/16/19 10:07 10/24/19 10:58 Labs: Laboratory Last Values WBC 4.0 K/mm3 (4.5-11.0) L 10/16/19 10:07 RBC 4.27 M/mm3 (3.65-5.03) 10/16/19 10:07 Hgb 13.4 gm/dl (11.8-15.2) 10/16/19 10:07 Hct 40.2 % (35.5-45.6) 10/16/19 10:07 MCV 94 fl (84-94) 10/16/19 10:07 MCH 31 pg (28-32) 10/16/19 10:07 MCHC 33 % (32-34) 10/16/19 10:07 RDW 15.5 % (13.2-15.2) H 10/16/19 10:07 Plt Count 223 K/mm3 (140-440) 10/16/19 10:07 Lymph % (Auto) 29.0 % (13.4-35.0) 10/16/19 10:07 [place] % (Auto) 5.8 % (0.0-7.3) 10/16/19 10:07 Eos % (Auto) 1.3 % (0.0-4.3) 10/16/19 10:07 Baso % (Auto) 1.4 % (0.0-1.8) 10/16/19 10:07 Lymph # 1.2 K/mm3 (1.2-5.4) 10/16/19 10:07 [place] # 0.2 K/mm3 (0.0-0.8) 10/16/19 10:07 Eos # 0.1 K/mm3 (0.0-0.4) 10/16/19 10:07 Baso # 0.1 K/mm3 (0.0-0.1) 10/16/19 10:07 Seg Neutrophils % 62.5 % (40.0-70.0) 10/16/19 10:07 Seg Neutrophils # 2.5 K/mm3 (1.8-7.7) 10/16/19 10:07 PT 15.5 Sec. (12.2-14.9) H 10/16/19 10:32 INR 1.21 (0.87-1.13) H 10/16/19 10:32 APTT 35.3 Sec. (24.2-36.6) 10/16/19 10:32 D-Dimer 516.76 ng/mlDDU (0-234) H 10/16/19 10:32 ABG pH 7.423 pH Units (7.350-7.450) 10/16/19 11:45 ABG pCO2 36.0 mm Hg 10/16/19 11:45 ABG pO2 55.9 mm Hg (80.0-90.0) L 10/16/19 11:45 ABG HCO3 23.0 mmol/L (20.0-26.0) 10/16/19 11:45 ABG O2 Saturation 89.2 % (95.0-99.0) L 10/16/19 11:45 ABG O2 Content 16.4 (0.0-44) 10/16/19 11:45 ABG Base Excess -1.0 mmol/L (-2.0-3.0) 10/16/19 11:45 ABG Hemoglobin 13.4 gm/dl (14.0-18.0) L 10/16/19 11:45 ABG Carboxyhemoglobin 2.1 % (0.0-5.0) 10/16/19 11:45 ABG Methemoglobin 0.5 % (0.0-1.5) 10/16/19 11:45 Oxyhemoglobin 86.8 % (95.0-99.0) L 10/16/19 11:45 FiO2 32 % 10/16/19 11:45 Sodium 122 mmol/L (137-145) L D 10/24/19 05:34 Potassium 4.0 mmol/L (3.6-5.0) 10/24/19 05:34 Chloride 81.0 mmol/L (98-107) L 10/24/19 05:34 Carbon Dioxide 25 mmol/L (22-30) 10/24/19 05:34 Anion Gap 20 mmol/L 10/24/19 05:34 BUN 51 mg/dL (9-20) H 10/24/19 05:34 Creatinine 1.7 mg/dL (0.8-1.5) H 10/24/19 05:34 Estimated GFR 53 ml/min 10/24/19 05:34 BUN/Creatinine Ratio 30 % 10/24/19 05:34 Glucose 134 mg/dL (75-100) H 10/24/19 05:34 Calcium 8.7 mg/dL (8.4-10.2) 10/24/19 05:34 Magnesium 2.00 mg/dL (1.7-2.3) 10/16/19 16:50 Total Bilirubin 1.00 mg/dL (0.1-1.2) 10/16/19 10:32 Direct Bilirubin 0.4 mg/dL (0-0.2) H 10/16/19 10:32 Indirect Bilirubin 0.6 mg/dL 10/16/19 10:32 AST 28 units/L (5-40) 10/16/19 10:32 ALT 16 units/L (7-56) 10/16/19 10:32 Alkaline Phosphatase 86 units/L (35-129) 10/16/19 10:32 Total Creatine Kinase 405 units/L (55-170) H 10/16/19 10:32 CK-MB (CK-2) 3.2 ng/mL (0.0-4.0) 10/16/19 10:32 CK-MB (CK-2) Rel Index 0.7 (0-4) 10/16/19 10:32 Troponin T 0.017 ng/mL (0.00-0.029) 10/16/19 16:50 NT-Pro-B Natriuret Pep 4791 pg/mL (0-450) H 10/16/19 10:07 Total Protein 8.0 g/dL (6.3-8.2) 10/16/19 10:32 Albumin 3.7 g/dL (3.9-5) L 10/16/19 10:32 Albumin/Globulin Ratio 0.9 % 10/16/19 10:32 Triglycerides 72 mg/dL (2-149) 10/20/19 05:18 Cholesterol 82 mg/dL (50-199) 10/20/19 05:18 LDL Cholesterol Direct 46 mg/dL (50-130) L 10/20/19 05:18 HDL Cholesterol 28 mg/dL (40-59) L 10/20/19 05:18 Cholesterol/HDL Ratio 2.92 % 10/20/19 05:18 TSH 1.540 mlU/mL (0.270-4.200) 10/16/19 16:50 Free T4 1.23 ng/dL (0.76-1.46) 10/16/19 16:50 Urine Color Yellow (Yellow) 10/16/19 10:52 Urine Turbidity Clear (Clear) 10/16/19 10:52 Urine pH 5.0 (5.0-7.0) 10/16/19 10:52 Ur Specific [place] 1.015 (1.003-1.030) 10/16/19 10:52 Urine Protein 30 mg/dl mg/dL (Negative) 10/16/19 10:52 Urine Glucose (UA) Neg mg/dL (Negative) 10/16/19 10:52 Urine Ketones Neg mg/dL (Negative) 10/16/19 10:52 Urine Blood Neg (Negative) 10/16/19 10:52 Urine Nitrite Neg (Negative) 10/16/19 10:52 Urine Bilirubin Neg (Negative) 10/16/19 10:52 Urine Urobilinogen < 2.0 mg/dL (<2.0) 10/16/19 10:52 Ur Leukocyte Esterase Neg (Negative) 10/16/19 10:52 Urine WBC (Auto) < 1.0 /HPF (0.0-6.0) 10/16/19 10:52 Urine RBC (Auto) 2.0 /HPF (0.0-6.0) 10/16/19 10:52 Urine Mucus Few /HPF 10/16/19 10:52 Urine Creatinine 315.9 mg/dL (0.1-20.0) H 10/18/19 Unknown Urine Sodium 10 mmol/L 10/18/19 Unknown Urine Potassium 28.30 mmol/L 10/18/19 Unknown Urine Urea Nitrogen 394 10/18/19 Unknown Urine Opiates Screen Presumptive negative 10/16/19 10:52 Urine Methadone Screen Presumptive negative 10/16/19 10:52 Ur Barbiturates Screen Presumptive negative 10/16/19 10:52 Ur Phencyclidine Scrn Presumptive negative 10/16/19 10:52 Ur Amphetamines Screen Presumptive negative 10/16/19 10:52 U Benzodiazepines Scrn Presumptive negative 10/16/19 10:52 Urine Cocaine Screen Presumptive negative 10/16/19 10:52 U Marijuana (THC) Screen Presumptive positive 10/16/19 10:52 Drugs of Abuse Note Disclamer 10/16/19 10:52 Active Medications - Current Medications Current Medications: Generic Name Dose Route Start Last Admin Trade Name Freq PRN Reason Stop Dose Admin Acetaminophen 650 mg 10/16/19 13:45 10/17/19 21:57 Tylenol PO 650 mg Q4H PRN Administration Pain MILD(1-3)/Fever >100.5/[place]OCK Aspirin 81 mg 10/19/19 14:00 10/23/19 10:07 Baby Aspirin PO Not Given QDAY COUNT INCLUDES THE [facility] Atorvastatin Calcium 20 mg 10/19/19 22:00 10/23/19 21:43 Lipitor PO 20 mg QHS COUNT INCLUDES THE [facility] Administration Atovaquone 1,500 mg 10/19/19 15:00 10/23/19 11:00 Mepron PO Not Given QDAY COUNT INCLUDES THE [facility] Benzonatate 100 mg 10/17/19 06:00 10/24/19 07:33 Tessalon Perles PO Not Given Q8HR COUNT INCLUDES THE [facility] Furosemide 20 mg 10/21/19 18:00 10/24/19 07:32 Lasix IV Not Given 0600,1800 COUNT INCLUDES THE [facility] Heparin Sodium (Porcine) 5,000 unit 10/16/19 22:00 10/23/19 21:45 Heparin SUB-Q Not Given Q12HR COUNT INCLUDES THE [facility] Dobutamine HCl/Dextrose 500 mg in 250 mls @ 12.54 mls/hr 10/23/19 11:00 10/23/19 13:53 Dobutrex Drip 500mg/D5w 250ml IV 5 mcg/kg/min TITR CESAR 12.54 mls/hr Administration 5 MCG/KG/MIN Lidocaine 1 each 10/17/19 15:00 10/23/19 10:04 Lidoderm 5% TD 1 each QDAY COUNT INCLUDES THE [facility] Administration Lorazepam 0.5 mg 10/17/19 02:36 10/23/19 21:43 Ativan PO 0.5 mg QHS COUNT INCLUDES THE [facility] Administration Metoprolol Succinate 25 mg 10/17/19 14:00 10/23/19 13:28 Metoprolol Xl PO 25 mg QDAY CESAR Administration Ondansetron HCl 4 mg 10/16/19 13:45 10/21/19 17:36 Zofran IV 4 mg Q8H PRN Administration Nausea And Vomiting Oxycodone/Acetaminophen 1 tab 10/18/19 00:00 10/24/19 03:52 Percocet 5/325 PO 1 tab Q6H PRN Administration Pain, Moderate (4-6) Potassium Chloride 40 meq 10/22/19 09:00 10/23/19 21:47 K-Dur PO 10/25/19 22:01 Not Given BID CESAR Pseudoephedrine/Acetam/Chlorphenir 20 ml 10/18/19 09:53 10/21/19 18:03 Robitussin Ac PO 20 ml Q4H PRN Administration Cough Sodium Chloride 10 ml 10/16/19 22:00 10/23/19 21:45 Sodium Chloride Flush Syringe 10 Ml IV Not Given BID CESAR Sodium Chloride 10 ml 10/16/19 13:45 Sodium Chloride Flush Syringe 10 Ml IV PRN PRN LINE FLUSH Ticagrelor 90 mg 10/19/19 14:00 10/23/19 21:45 Brilinta PO Not Given BID CESAR Nutrition/Malnutrition Assess - Dietary Evaluation Nutrition/Malnutrition Findings: Nutrition Notes Start: 10/23/19 12:07 Freq: Status: Active Protocol: Document 10/23/19 12:07 AP (Rec: 10/23/19 12:22 AP [email or web address]) Co-Sign 10/23/19 12:07 LP Nutrition Notes Need for Assessment generated from: LOS Initial or Follow up Assessment Current Diagnosis Coronary Artery Disease, Hypertension,Heart Failure, Respiratory Failure, Hyperlipidemia Other Pertinent Diagnosis HIV, acidosis, SOB Current Diet Cardiac Labs/Tests Na 131 BUN 35 Cr 1.9 BG 64 Pertinent Medications percocet Lasix Ativan Zofran Height 6 ft 1 in Weight 83.6 kg [place] Body Weight (kg) 83.63 BMI 24.3 Intake Prior to Admission Poor Weight Status Appropriate Subjective/Other Information LOS. Pt states no recent weight loss. Pt states poor PO intakes and poor appetite. No wasting noted. Pt does not like Ensure at all, noted multiple unopened in room. Pt says he just "can't". Encouraged pt to drink one or two a day so he could get some nutrition instay. Pt just shook his head. Pt adament to get ativan for his building anxiety. Burn Absent Trauma Absent GI Symptoms None Current % PO Poor (25-49%) Minimum of two criteria No Energy Intake (severe) < or equal to 50% Estimated Energy Requirement > or equal to 5 days #1 Nutrition Diagnosis Inadequate oral intake Etiology HIV, SOB As Evidenced by Signs and Symptoms Pt states poor PO intakes and poor appetite [employer]. Is patient on ventilator? No Is Patient Ambulatory and/or Out of Bed Yes REE-([facility]-ambulatory/OOB) [ 2313.844 NUTR.[id number]] Calculation Used for Recommendations [facility] Additional Notes PRO needs: 66-83g/day (0.8-1g/ kg) Fluid: Per 1500ml Nutrition Intervention Change Diet Order: Continue regular Add Supplement/Snack (indicate name/kcal Ensure Enlive once a day /protein ) Provides kCal: 350 Provides Protein (gm) 20 Goal #1 Pt meet >75% of kcal/PRO needs Anticipated Discharge Needs: Cardiac Follow-Up By: 10/26/19 Additional Comments F/U for PO intakes. ONS tolerance.
--- NOTE | 2019-10-24 10:15 | Progress Note ---
Assessment and Plan Patient is very noncompliant. He stopped the dobutamine drip. Now he is not on the monitor as he did not want to be put on. I had a long discussion with him and explained about the need for medications and continued close monitoring and management. Patient will decide whether he'll stay or not. Acute on chronic HFrEF TTE reviewed - EF 10%, restrictive diastolic filling, LA severely dilated, RV mod dilated, RV systolic function severely reduced, RA severely dilated, mild to mod MR and TR, RVSP 38mmHg. Cont Toprol XL. Consider addition of ARB nephrology is agreeable. Pt remains SOB with minimal exertion. S/p dobutamine gtt x 3 days, d/c'd yesterday. Patient refused continuation of the same. Cont IV lasix BID per nephrology. Obtain strict I&Os and daily weights. [facility] TTE reviewed - EF 10%, restrictive diastolic filling, LA severely dilated, RV mod dilated, RV systolic function severely reduced, RA severely dilated, mild to mod MR and TR, RVSP 38mmHg. Cont Toprol XL. Consider addition of ARB nephrology is agreeable. Pt remains SOB with minimal exertion. S/p dobutamine gtt x 3 days, d/c'd yesterday. Patient refused. Cont IV lasix BID per nephrology. LHC from [place], [place] obtained - pt underwent LHC in 05/2019 with PCI of RCA into PDA, otherwise no significant CAD, EF 10%. Pt appears to be a poor candidate for LifeVest in setting of longstanding history of noncompliance and polysubstance abuse. Will plan to address AICD candidacy as OP. CAD s/p PCI of RCA Done May 2019 in [place], [place]. Cont ASA 81, brilinta, statin, Toprol XL. Elevated DDimer Chest CTA showed questionable minimal left lower lobe PTE of questionable clinical significance. V/Q scan low prob for PE. Bilateral venous duplex studies negative for DVT. TTE reviewed - EF 10%, restrictive diastolic filling, LA severely dilated, RV mod dilated, RV systolic function severely reduced, RA severely dilated, mild to mod MR and TR, RVSP 38mmHg. NAZ cardiorenal syndrome, vasomotor nephropathy and contrast nephropathy Renal indices worsened this AM since discontinuation of dobutamine gtt yesterday. resume dobutamine gtt today. Nephrology following. HIV Noncompliant with medication regimen. ID recs noted. HTN Stable. Cont Toprol XL. H/o HLP Lipid panel reviewed. Cont low dose statin. LBBB NSVT Longest run noted was 15 beats on 10/17/2019 @ ~ 5PM. Pt symptomatic. Cont Toprol XL. Monitor electrolytes. Pt appears to be a poor candidate for LifeVest in setting of longstanding history of noncompliance and polysubstance abuse. Will plan to address AICD candidacy as OP. Subjective Date of service: 10/24/19 Principal diagnosis: HF Interval history: Patient has been quite noncompliant. He refused telemetry, refused dobutamine drip. Patient is currently on oxygen. Has no chest pain but he is complaining about difficulty breathing. He wants to go home and take his medications at home and not complying with anything they have requested to do. I had a long discussion with him regarding the severity of his illness and the need for medications and continued hospitalization. Objective Vital Signs Temp Pulse Resp BP BP Pulse Ox 10/24/19 07:53 98.6 F 66 18 113/89 96 10/24/19 05:04 98.0 F 76 20 118/90 97 10/23/19 23:32 98.0 F 85 18 128/96 100 10/23/19 22:00 100 10/23/19 20:00 22 10/23/19 19:55 98.0 F 85 18 122/88 100 10/23/19 18:45 97.4 F L 83 18 136/95 100 10/23/19 18:24 82 128/92 10/23/19 13:28 77 125/73 10/23/19 13:23 97.4 F L 83 18 127/93 100 10/23/19 10:47 99 - Physical Examination General: No Apparent Distress, Other (appears chronically ill and on oxygen) HEENT: Positive: PERRL Neck: Positive: neck supple, trachea midline Cardiac: Positive: Regular Rate Lungs: Positive: Decreased Breath Sounds (both bases) Neuro: Positive: Grossly Intact Abdomen: Negative: Tender Skin: Negative: Rash Musculoskeletal: No Pain Extremities: Present: edema (trace BLE) - Labs and Meds Comprehensive Metabolic Panel 10/24/19 Range/Units 05:34 Sodium 122 L D (137-145) mmol/L Potassium 4.0 (3.6-5.0) mmol/L Chloride 81.0 L (98-107) mmol/L Carbon Dioxide 25 (22-30) mmol/L BUN 51 H (9-20) mg/dL Creatinine 1.7 H (0.8-1.5) mg/dL Glucose 134 H (75-100) mg/dL Calcium 8.7 (8.4-10.2) mg/dL - Imaging and Cardiology EKG: report reviewed, image reviewed Echo: report reviewed - Allied health notes Allied health notes reviewed: nursing
[2019-10-24] MEDS: ATOVAQUONE 750 MG/5 ML ORAL SUSP PO SCH ×2 (11:32→12:07)
[2019-10-24] MEDS: TICAGRELOR 90 MG TAB PO SCH ×2 (11:33→21:55)
[2019-10-24] MEDS: METOPROLOL SUCCINATE XL 25 MG TAB PO SCH (11:33)
[2019-10-24] MEDS: POTASSIUM CHLORIDE ER 20 MEQ TAB PO SCH ×2 (11:34→21:54)
[2019-10-24] MEDS: HEPARIN 5,000 UNIT/1 ML VIAL SUB-Q SCH ×3 (11:34→21:55)
[2019-10-24] MEDS: ASPIRIN 81 MG TAB CHEW PO SCH (11:34)
[2019-10-24] MEDS: guaiFENesin/CODEINE 100-10MG ORAL LIQD 5 ML PO PRN (11:36)
[2019-10-24] MEDS: DOBUTamine/D5W 500 MG/250 ML 500 MG/250 ML BAG IV SCH (11:58)
--- NOTE | 2019-10-24 12:24 | Progress Note ---
Assessment and Plan - Patient Problems (1) Acute HFrEF (heart failure with reduced ejection fraction) Current Visit: Yes Status: Acute Plan to address problem: Dobutamine was stopped yesterday but patient developed worsening renal indices. Has been restarted by coding machine operator. We'll hold Lasix and give a dose of Tolvaptn. FOLLOW-UP ELECTROLYTES AND RENAL FUNCTION (2) Hyponatremia Current Visit: Yes Status: Acute Plan to address problem: Sodium worse. Patient on IV Lasix. Dobutamine was held yesterday. Still appears to be in a list mild volume overload. We check urine indices. Hold furosemide and Give a dose of Tolvaptan. Follow-up sodium closely (3) Acidosis Current Visit: Yes Status: Acute Plan to address problem: Resolved. Bicarbonate at goal (4) Acute and chronic respiratory failure with hypoxia Current Visit: Yes Status: Acute Plan to address problem: Improved with diuresis. (5) Hypokalemia Current Visit: Yes Status: Acute Plan to address problem: Potassium is normal. Follow-up electrolytes (6) Hemoptysis Current Visit: Yes Status: Acute Plan to address problem: Probably secondary to heart failure. Resolved. Continue to monitor Subjective Date of service: 10/24/19 Principal diagnosis: HF with acute kidney injury Interval history: Patient seen sitting on a chair. Says shortness of breath is better. He denies any nausea vomiting. No chest pain Objective - Exam Narrative Exam: Middle-aged -Thai male lying in bed in no acute distress HEENT: NCAT, pink oral mucous membrane Neck: Supple, no venous distention CVS: S1S2 RRR with no murmur, rub or gallop Chest: Diminished breath sounds in lower zones with few rales Abdomen: Protuberant, soft, nontender, no organomegaly, bowel sounds are present Extremities: Mild edema Neuro: Awake, alert no focal deficits - Vital Signs Vital signs: Vital Signs - 12hr 10/24/19 10/24/19 05:04 07:53 Temperature 98.0 F 98.6 F Pulse Rate 76 66 Respiratory 20 18 Rate Blood Pressure 118/90 113/89 O2 Sat by Pulse 97 96 Oximetry - Lab 10/16/19 10:07 10/24/19 10:58 Most recent lab results ABG pH 7.423 pH Units (7.350-7.450) 10/16/19 11:45 ABG pCO2 36.0 mm Hg 10/16/19 11:45 ABG pO2 55.9 mm Hg (80.0-90.0) L 10/16/19 11:45 ABG HCO3 23.0 mmol/L (20.0-26.0) 10/16/19 11:45 ABG O2 Saturation 89.2 % (95.0-99.0) L 10/16/19 11:45 Calcium 8.7 mg/dL (8.4-10.2) 10/24/19 05:34 Magnesium 2.00 mg/dL (1.7-2.3) 10/16/19 16:50 Urine Creatinine 315.9 mg/dL (0.1-20.0) H 10/18/19 Unknown Urine Sodium 10 mmol/L 10/18/19 Unknown Medications & Allergies - Medications Allergies/Adverse Reactions: Allergies TL Inhibitors Adverse Reaction (Verified 07/31/19 07:48) Angioedema Home Medications: Home Medications Medication Instructions Recorded Confirmed Last Taken Type Albuterol INH(or & Nicu Only) 2 puff IH QID PRN #8.5 gram 10/17/19 Unknown Rx [ProAir HFA Inhaler] Metoprolol Succinate [Toprol Xl] 25 mg PO DAILY #30 tab.er.24h 10/17/19 Unknown Rx Torsemide 100 mg PO BID #60 10/17/19 Unknown Rx Active Medications: Generic Name Dose Route Start Last Admin Trade Name Freq PRN Reason Stop Dose Admin Acetaminophen 650 mg 10/16/19 13:45 10/17/19 21:57 Tylenol PO 650 mg Q4H PRN Administration Pain MILD(1-3)/Fever >100.5/PEACOCK Aspirin 81 mg 10/19/19 14:00 10/24/19 11:34 Baby Aspirin PO 81 mg QDAY CESAR Administration Atorvastatin Calcium 20 mg 10/19/19 22:00 10/23/19 21:43 Lipitor PO 20 mg QHS CESAR Administration Atovaquone 1,500 mg 10/19/19 15:00 10/24/19 12:07 Mepron PO Not Given QDAY CESAR Benzonatate 100 mg 10/17/19 06:00 10/24/19 11:36 Tessalon Perles PO 100 mg Q8HR CESAR Administration Furosemide 20 mg 10/21/19 18:00 10/24/19 11:31 Lasix IV 20 mg 0600,1800 CESAR Administration Heparin Sodium (Porcine) 5,000 unit 10/16/19 22:00 10/24/19 12:06 Heparin SUB-Q Not Given Q12HR CESAR Dobutamine HCl/Dextrose 500 mg in 250 mls @ 12.54 mls/hr 10/23/19 11:00 10/24/19 11:58 Dobutrex Drip 500mg/D5w 250ml IV 5 mcg/kg/min TITR CESAR 12.54 mls/hr Administration 5 MCG/KG/MIN Lidocaine 1 each 10/17/19 15:00 10/23/19 10:04 Lidoderm 5% TD 1 each QDAY CESAR Administration Lorazepam 0.5 mg 10/17/19 02:36 10/23/19 21:43 Ativan PO 0.5 mg QHS CESAR Administration Metoprolol Succinate 25 mg 10/17/19 14:00 10/24/19 11:33 Metoprolol Xl PO 25 mg QDAY CESAR Administration Ondansetron HCl 4 mg 10/16/19 13:45 10/21/19 17:36 Zofran IV 4 mg Q8H PRN Administration Nausea And Vomiting Oxycodone/Acetaminophen 1 tab 10/18/19 00:00 10/24/19 03:52 Percocet 5/325 PO 1 tab Q6H PRN Administration Pain, Moderate (4-6) Potassium Chloride 40 meq 10/22/19 09:00 10/24/19 11:34 K-Dur PO 10/25/19 22:01 40 meq BID CESAR Administration Pseudoephedrine/Acetam/Chlorphenir 20 ml 10/18/19 09:53 10/24/19 11:36 Robitussin Ac PO 20 ml Q4H PRN Administration Cough Sodium Chloride 10 ml 10/16/19 22:00 10/23/19 21:45 Sodium Chloride Flush Syringe 10 Ml IV Not Given BID CESAR Sodium Chloride 10 ml 10/16/19 13:45 Sodium Chloride Flush Syringe 10 Ml IV PRN PRN LINE FLUSH Ticagrelor 90 mg 10/19/19 14:00 10/24/19 11:33 Brilinta PO 90 mg BID CESAR Administration
[2019-10-24] MEDS ORDERED: TOLVAPTAN 15 MG TAB PO SCH (13:00)
[2019-10-24] MEDS: LORazepam 0.5 MG TAB PO SCH (21:54)
--- NOTE | 2019-10-25 02:49 | XRay Report ---
CHEST 2 VIEWS INDICATION: SOB. COMPARISON: 10/19/2019 FINDINGS: Support devices: None. Heart: Stable cardiomegaly. Lungs/pleura: Patchy right basilar airspace disease. Clear left lung. No pneumothorax. Additional findings: None. IMPRESSION: 1. Patchy right basilar airspace disease worrisome for pneumonia. 2. Stable cardiomegaly. Signer Name: Zay Koch MD Signed: 10/25/2019 2:44 AM Workstation Name: [id number]
[2019-10-25] MEDS: BENZONATATE 100 MG CAP PO SCH ×3 (06:14→22:26)
[2019-10-25 06:37] LABS: BUN/Creatinine Ratio 34; Blood Urea Nitrogen 44 mg/dL (9-20); Calcium 8.8 mg/dL (8.4-10.2); Hemolysis Index 0
--- NOTE | 2019-10-25 11:06 | Progress Note ---
Assessment and Plan Patient is in no acute distress. Patient has been off the monitor because he did not allow them to put it on. No significant chest pain today. Cardiac examination is unchanged. Labs are reviewed that patient is noted to be hyponatremic. Renal function appears to be improving some. Overall prognosis is guarded due to severe LV dysfunction as well as reduced RV systolic function. Patient is noncompliant with medications in the hospital. Discussed with Dr. Alanis. We may need risk management to assess him. He is not cooperative with treatment. Acute on chronic HFrEF TTE reviewed - EF 10%, restrictive diastolic filling, LA severely dilated, RV mod dilated, RV systolic function severely reduced, RA severely dilated, mild to mod MR and TR, RVSP 38mmHg. Cont Toprol XL. Consider addition of ARB nephrology is agreeable. Pt remains SOB with minimal exertion. S/p dobutamine gtt x 3 days, d/c'd yesterday. Patient refused continuation of the same. Cont IV lasix BID per nephrology. Obtain strict I&Os and daily weights. [facility] TTE reviewed - EF 10%, restrictive diastolic filling, LA severely dilated, RV mod dilated, RV systolic function severely reduced, RA severely dilated, mild to mod MR and TR, RVSP 38mmHg. Cont Toprol XL. Consider addition of ARB nephrology is agreeable. Pt remains SOB with minimal exertion. S/p dobutamine gtt x 3 days, d/c'd yesterday. Patient refused. Cont IV lasix BID per nephrology. LHC from [place], [place] obtained - pt underwent LHC in 05/2019 with PCI of RCA into PDA, otherwise no significant CAD, EF 10%. Pt appears to be a poor candidate for LifeVest in setting of longstanding history of noncompliance and polysubstance abuse. Will plan to address AICD candidacy as OP. CAD s/p PCI of RCA Done May 2019 in [place], [place]. Cont ASA 81, brilinta, statin, Toprol XL. Elevated DDimer Chest CTA showed questionable minimal left lower lobe PTE of questionable clinical significance. V/Q scan low prob for PE. Bilateral venous duplex studies negative for DVT. TTE reviewed - EF 10%, restrictive diastolic filling, LA severely dilated, RV mod dilated, RV systolic function severely reduced, RA severely dilated, mild to mod MR and TR, RVSP 38mmHg. NAZ cardiorenal syndrome, vasomotor nephropathy and contrast nephropathy Nephrology following. HIV Noncompliant with medication regimen. ID recs noted. HTN Stable. Cont Toprol XL. H/o HLP Lipid panel reviewed. Cont low dose statin. LBBB NSVT Longest run noted was 15 beats on 10/17/2019 @ ~ 5PM. Pt symptomatic. Cont Toprol XL. Monitor electrolytes. Pt appears to be a poor candidate for LifeVest in setting of longstanding history of noncompliance and polysubstance abuse. Will plan to address AICD candidacy as OP. Subjective Date of service: 10/25/19 Principal diagnosis: HF with acute kidney injury Interval history: Patient is sitting in the chair he appears to be comfortable. Denies chest pain. Currently he took out his oxygen. He refused to be on the monitor. Objective Vital Signs Temp Pulse Resp BP Pulse Ox 10/25/19 09:44 99 10/25/19 08:27 98.2 F 18 110/89 10/25/19 04:29 97.4 F L 78 20 118/81 100 10/25/19 00:03 97.4 F L 77 20 117/88 99 10/24/19 19:54 97.6 F 76 20 118/83 100 10/24/19 17:38 98.2 F 18 117/91 10/24/19 12:28 97 10/24/19 12:04 98.0 F 82 18 130/87 90 - Physical Examination General: No Apparent Distress, Other (appears chronically ill and on oxygen) HEENT: Positive: PERRL Neck: Positive: neck supple, trachea midline Cardiac: Positive: Regular Rate, S3 Lungs: Positive: clear to auscultation Neuro: Positive: Grossly Intact Abdomen: Positive: Soft. Negative: Tender Skin: Negative: Rash Musculoskeletal: No Pain Extremities: Present: edema (trace BLE) - Labs and Meds Comprehensive Metabolic Panel 10/24/19 10/25/19 Range/Units 10:58 05:41 Sodium 119 L* 127 L D (137-145) mmol/L Potassium 4.4 (3.6-5.0) mmol/L Chloride 85.8 L (98-107) mmol/L Carbon Dioxide 26 (22-30) mmol/L BUN 44 H (9-20) mg/dL Creatinine 1.3 (0.8-1.5) mg/dL Glucose 134 H (75-100) mg/dL Calcium 8.8 (8.4-10.2) mg/dL - Imaging and Cardiology EKG: report reviewed, image reviewed Echo: report reviewed - Allied health notes Allied health notes reviewed: nursing
[2019-10-25] MEDS: POTASSIUM CHLORIDE ER 20 MEQ TAB PO SCH ×2 (11:17→22:27)
[2019-10-25] MEDS: METOPROLOL SUCCINATE XL 25 MG TAB PO SCH (11:18)
[2019-10-25] MEDS: ASPIRIN 81 MG TAB CHEW PO SCH (11:18)
[2019-10-25] MEDS: ATOVAQUONE 750 MG/5 ML ORAL SUSP PO SCH (11:19)
[2019-10-25] MEDS: HEPARIN 5,000 UNIT/1 ML VIAL SUB-Q SCH ×2 (11:19→22:27)
[2019-10-25] MEDS: TICAGRELOR 90 MG TAB PO SCH ×2 (11:19→22:26)
[2019-10-25] MEDS: LIDOCAINE 5% 1 EACH PATCH TD SCH ×2 (11:20→19:32)
--- NOTE | 2019-10-25 15:48 | Progress Note ---
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 Hold Tolvaptan. Follow-up sodium closely (3) Acidosis Current Visit: Yes Status: Acute Plan to address problem: Resolved. Bicarbonate at goal (4) Acute and chronic respiratory failure with hypoxia Current Visit: Yes Status: Acute Plan to address problem: Improved with diuresis. (5) Hypokalemia Current Visit: Yes Status: Acute Plan to address problem: Potassium is normal. Follow-up electrolytes (6) Hemoptysis Current Visit: Yes Status: Acute Plan to address problem: Probably secondary to heart failure. Resolved. Continue to monitor Subjective Date of service: 10/25/19 Principal diagnosis: HF with acute kidney injury Interval history: Patient seen sitting on a chair. Says shortness of breath is better. He denies any nausea vomiting. No chest pain Objective - Exam Narrative Exam: Middle-aged -Citizen Of [place] male lying in bed in no acute distress HEENT: NCAT, pink oral mucous membrane Neck: Supple, no venous distention CVS: S1S2 RRR with no murmur, rub or gallop Chest: Diminished breath sounds in lower zones with few rales Abdomen: Protuberant, soft, nontender, no organomegaly, bowel sounds are present Extremities: Mild edema Neuro: Awake, alert no focal deficits - Vital Signs Vital signs: Vital Signs - 12hr 10/25/19 10/25/19 10/25/19 04:29 08:27 09:44 Temperature 97.4 F L 98.2 F Pulse Rate 78 Respiratory 20 18 Rate Blood Pressure 118/81 110/89 O2 Sat by Pulse 100 99 Oximetry 10/25/19 10:00 Temperature Pulse Rate Respiratory 30 H Rate Blood Pressure O2 Sat by Pulse 99 Oximetry - Lab 10/16/19 10:07 10/25/19 05:41 Most recent lab results ABG pH 7.423 pH Units (7.350-7.450) 10/16/19 11:45 ABG pCO2 36.0 mm Hg 10/16/19 11:45 ABG pO2 55.9 mm Hg (80.0-90.0) L 10/16/19 11:45 ABG HCO3 23.0 mmol/L (20.0-26.0) 10/16/19 11:45 ABG O2 Saturation 89.2 % (95.0-99.0) L 10/16/19 11:45 Calcium 8.8 mg/dL (8.4-10.2) 10/25/19 05:41 Magnesium 2.00 mg/dL (1.7-2.3) 10/16/19 16:50 Urine Creatinine 315.9 mg/dL (0.1-20.0) H 10/18/19 Unknown Urine Sodium 10 mmol/L 10/18/19 Unknown Medications & Allergies - Medications Allergies/Adverse Reactions: Allergies TL Inhibitors Adverse Reaction (Verified 07/31/19 07:48) Angioedema Home Medications: Home Medications Medication Instructions Recorded Confirmed Last Taken Type Albuterol INH(or & Nicu Only) 2 puff IH QID PRN #8.5 gram 10/17/19 Unknown Rx [ProAir HFA Inhaler] Metoprolol Succinate [Toprol Xl] 25 mg PO DAILY #30 tab.er.24h 10/17/19 Unknown Rx Torsemide 100 mg PO BID #60 10/17/19 Unknown Rx Active Medications: Generic Name Dose Route Start Last Admin Trade Name Freq PRN Reason Stop Dose Admin Acetaminophen 650 mg 10/16/19 13:45 10/17/19 21:57 Tylenol PO 650 mg Q4H PRN Administration Pain MILD(1-3)/Fever >100.5/PEACOCK Aspirin 81 mg 10/19/19 14:00 10/25/19 11:18 Baby Aspirin PO 81 mg QDAY CESAR Administration Atorvastatin Calcium 20 mg 10/19/19 22:00 10/24/19 21:55 Lipitor PO 20 mg QHS CESAR Administration Atovaquone 1,500 mg 10/19/19 15:00 10/25/19 11:19 Mepron PO Not Given QDAY CESAR Benzonatate 100 mg 10/17/19 06:00 10/25/19 06:14 Tessalon Perles PO 100 mg Q8HR CESAR Administration Heparin Sodium (Porcine) 5,000 unit 10/16/19 22:00 10/25/19 11:19 Heparin SUB-Q Not Given Q12HR CESAR Dobutamine HCl/Dextrose 500 mg in 250 mls @ 12.54 mls/hr 10/23/19 11:00 10/24/19 11:58 Dobutrex Drip 500mg/D5w 250ml IV 5 mcg/kg/min TITR CESAR 12.54 mls/hr Administration 5 MCG/KG/MIN Lidocaine 1 each 10/17/19 15:00 10/25/19 11:20 Lidoderm 5% TD 1 each QDAY CESAR Administration Lorazepam 0.5 mg 10/17/19 02:36 10/24/19 21:54 Ativan PO 0.5 mg QHS CESAR Administration Metoprolol Succinate 25 mg 10/17/19 14:00 10/25/19 11:18 Metoprolol Xl PO 25 mg QDAY CESAR Administration Ondansetron HCl 4 mg 10/16/19 13:45 10/21/19 17:36 Zofran IV 4 mg Q8H PRN Administration Nausea And Vomiting Oxycodone/Acetaminophen 1 tab 10/18/19 00:00 10/24/19 22:02 Percocet 5/325 PO 1 tab Q6H PRN Administration Pain, Moderate (4-6) Potassium Chloride 40 meq 10/22/19 09:00 10/25/19 11:17 K-Dur PO 10/25/19 22:01 40 meq BID CESAR Administration Pseudoephedrine/Acetam/Chlorphenir 20 ml 10/18/19 09:53 10/24/19 11:36 Robitussin Ac PO 20 ml Q4H PRN Administration Cough Sodium Chloride 10 ml 10/16/19 22:00 10/24/19 21:55 Sodium Chloride Flush Syringe 10 Ml IV 10 ml BID CESAR Administration Sodium Chloride 10 ml 10/16/19 13:45 Sodium Chloride Flush Syringe 10 Ml IV PRN PRN LINE FLUSH Ticagrelor 90 mg 10/19/19 14:00 10/25/19 11:19 Brilinta PO 90 mg BID CESAR Administration Tolvaptan 15 mg 10/24/19 13:00 10/25/19 11:18 Samsca PO 15 mg Q24H CESAR Administration
[2019-10-25] MEDS: oxyCODONE /ACETAMINOPHEN 5-325MG TAB PO PRN ×2 (17:33→22:48)
--- NOTE | 2019-10-25 17:38 | Progress Note ---
Assessment and Plan Assessment and plan: Patient with severe cardiomyopathy with ejection fraction of 10% and acute kidney injury Evaluated by nephrology and cardiology, medications optimized, patient on dobutamine drip. Patient has been very noncompliant refusing medication, not cooperating. Continues to have intermittent episodes shortness of breath --Severe hyponatremia; management per nephrology Mild improvement, monitor electrolytes --Acute kidney injury; vasomotor nephropathy Mild improvement Renal function, cardiology started dobutamine again today Avoid nephrotoxins, nephrology following --Severe cardiomyopathy; EF of 10% Cardiology following, diuretics, beta blockers, allergic to tl inhibitors Input and output monitoring, on dobutamine drip --Acute on chronic systolic congestive heart failure EF 10% Diuresis on hold due to renal failure, nephrology following. Dobutamine drip per cardiology No TL inhibitor due to angioedema. Beta-juanito, may need LifeVest --Nonischemic cardiomyopathy; --Shortness of breath/orthopnea CTA negative, lower extremity Doppler negative, VQ scan negative. Repeat chest x-ray today. --History of HIV Not compliance with medications, outpatient ID follow-up PO Atovaquone 1500 mg daily as PCP prophylaxis, avoid Bactrim due to renal failure --Occasional drug use; marijuana Counseling advised to quit occasional drug use --Medical noncompliance ;preventive health counseling performed for 17 minutes DVT prophylaxis; ambulation as tolerated Possible discharge tomorrow if stable Disposition :per cardiology Plan of care is reviewed with the patient and his nurse Case discussed with cardiology, possible discharge tomorrow if stable History Interval history: Patient seen and examined in his room this morning medical records reviewed Overnight events noted, patient is noncompliant with medications refusing treatment most of the times Patient is very angry and verbally at times Complains of mild shortness of breath, denies chest pain Alert awake oriented, mild distress Vital signs reviewed Hospitalist Physical - Constitutional Vitals: Temp Pulse Resp BP Pulse Ox 98.2 F 78 30 H 110/89 99 10/25/19 08:27 10/25/19 04:29 10/25/19 10:00 10/25/19 08:27 10/25/19 10:00 General appearance: Present: mild distress, well-nourished - EENT Eyes: Present: PERRL, EOM intact - Neck Neck: Present: supple, normal ROM - Respiratory Respiratory effort: normal Respiratory: bilateral: diminished, negative: rales, rhonchi, wheezing - Cardiovascular Rhythm: regular Heart Sounds: Present: S1 & S2 - Extremities Extremities: no ischemia, No edema - Abdominal General gastrointestinal: soft, non-tender, non-distended, normal bowel sounds - Integumentary Integumentary: Present: clear, warm - Psychiatric Psychiatric: appropriate mood/affect, cooperative - Neurologic Neurologic: CNII-XII intact, moves all extremities Results - Labs CBC & Chem 7: 10/16/19 10:07 10/25/19 05:41 Labs: Laboratory Last Values WBC 4.0 K/mm3 (4.5-11.0) L 10/16/19 10:07 RBC 4.27 M/mm3 (3.65-5.03) 10/16/19 10:07 Hgb 13.4 gm/dl (11.8-15.2) 10/16/19 10:07 Hct 40.2 % (35.5-45.6) 10/16/19 10:07 MCV 94 fl (84-94) 10/16/19 10:07 MCH 31 pg (28-32) 10/16/19 10:07 MCHC 33 % (32-34) 10/16/19 10:07 RDW 15.5 % (13.2-15.2) H 10/16/19 10:07 Plt Count 223 K/mm3 (140-440) 10/16/19 10:07 Lymph % (Auto) 29.0 % (13.4-35.0) 10/16/19 10:07 [place] % (Auto) 5.8 % (0.0-7.3) 10/16/19 10:07 Eos % (Auto) 1.3 % (0.0-4.3) 10/16/19 10:07 Baso % (Auto) 1.4 % (0.0-1.8) 10/16/19 10:07 Lymph # 1.2 K/mm3 (1.2-5.4) 10/16/19 10:07 [place] # 0.2 K/mm3 (0.0-0.8) 10/16/19 10:07 Eos # 0.1 K/mm3 (0.0-0.4) 10/16/19 10:07 Baso # 0.1 K/mm3 (0.0-0.1) 10/16/19 10:07 Seg Neutrophils % 62.5 % (40.0-70.0) 10/16/19 10:07 Seg Neutrophils # 2.5 K/mm3 (1.8-7.7) 10/16/19 10:07 PT 15.5 Sec. (12.2-14.9) H 10/16/19 10:32 INR 1.21 (0.87-1.13) H 10/16/19 10:32 APTT 35.3 Sec. (24.2-36.6) 10/16/19 10:32 D-Dimer 516.76 ng/mlDDU (0-234) H 10/16/19 10:32 ABG pH 7.423 pH Units (7.350-7.450) 10/16/19 11:45 ABG pCO2 36.0 mm Hg 10/16/19 11:45 ABG pO2 55.9 mm Hg (80.0-90.0) L 10/16/19 11:45 ABG HCO3 23.0 mmol/L (20.0-26.0) 10/16/19 11:45 ABG O2 Saturation 89.2 % (95.0-99.0) L 10/16/19 11:45 ABG O2 Content 16.4 (0.0-44) 10/16/19 11:45 ABG Base Excess -1.0 mmol/L (-2.0-3.0) 10/16/19 11:45 ABG Hemoglobin 13.4 gm/dl (14.0-18.0) L 10/16/19 11:45 ABG Carboxyhemoglobin 2.1 % (0.0-5.0) 10/16/19 11:45 ABG Methemoglobin 0.5 % (0.0-1.5) 10/16/19 11:45 Oxyhemoglobin 86.8 % (95.0-99.0) L 10/16/19 11:45 FiO2 32 % 10/16/19 11:45 Sodium 127 mmol/L (137-145) L D 10/25/19 05:41 Potassium 4.4 mmol/L (3.6-5.0) 10/25/19 05:41 Chloride 85.8 mmol/L (98-107) L 10/25/19 05:41 Carbon Dioxide 26 mmol/L (22-30) 10/25/19 05:41 Anion Gap 20 mmol/L 10/25/19 05:41 BUN 44 mg/dL (9-20) H 10/25/19 05:41 Creatinine 1.3 mg/dL (0.8-1.5) 10/25/19 05:41 Estimated GFR > 60 ml/min 10/25/19 05:41 BUN/Creatinine Ratio 34 % 10/25/19 05:41 Glucose 134 mg/dL (75-100) H 10/25/19 05:41 Osmolality 280 Mosm/kg 10/24/19 10:58 Uric Acid 15.0 mg/dL (3.5-7.6) H 10/24/19 10:58 Calcium 8.8 mg/dL (8.4-10.2) 10/25/19 05:41 Magnesium 2.00 mg/dL (1.7-2.3) 10/16/19 16:50 Total Bilirubin 1.00 mg/dL (0.1-1.2) 10/16/19 10:32 Direct Bilirubin 0.4 mg/dL (0-0.2) H 10/16/19 10:32 Indirect Bilirubin 0.6 mg/dL 10/16/19 10:32 AST 28 units/L (5-40) 10/16/19 10:32 ALT 16 units/L (7-56) 10/16/19 10:32 Alkaline Phosphatase 86 units/L (35-129) 10/16/19 10:32 Total Creatine Kinase 405 units/L (55-170) H 10/16/19 10:32 CK-MB (CK-2) 3.2 ng/mL (0.0-4.0) 10/16/19 10:32 CK-MB (CK-2) Rel Index 0.7 (0-4) 10/16/19 10:32 Troponin T 0.017 ng/mL (0.00-0.029) 10/16/19 16:50 NT-Pro-B Natriuret Pep 4791 pg/mL (0-450) H 10/16/19 10:07 Total Protein 8.0 g/dL (6.3-8.2) 10/16/19 10:32 Albumin 3.7 g/dL (3.9-5) L 10/16/19 10:32 Albumin/Globulin Ratio 0.9 % 10/16/19 10:32 Triglycerides 72 mg/dL (2-149) 10/20/19 05:18 Cholesterol 82 mg/dL (50-199) 10/20/19 05:18 LDL Cholesterol Direct 46 mg/dL (50-130) L 10/20/19 05:18 HDL Cholesterol 28 mg/dL (40-59) L 10/20/19 05:18 Cholesterol/HDL Ratio 2.92 % 10/20/19 05:18 TSH 1.540 mlU/mL (0.270-4.200) 10/16/19 16:50 Free T4 1.23 ng/dL (0.76-1.46) 10/16/19 16:50 Urine Color Yellow (Yellow) 10/16/19 10:52 Urine Turbidity Clear (Clear) 10/16/19 10:52 Urine pH 5.0 (5.0-7.0) 10/16/19 10:52 Ur Specific [place] 1.015 (1.003-1.030) 10/16/19 10:52 Urine Protein 30 mg/dl mg/dL (Negative) 10/16/19 10:52 Urine Glucose (UA) Neg mg/dL (Negative) 10/16/19 10:52 Urine Ketones Neg mg/dL (Negative) 10/16/19 10:52 Urine Blood Neg (Negative) 10/16/19 10:52 Urine Nitrite Neg (Negative) 10/16/19 10:52 Urine Bilirubin Neg (Negative) 10/16/19 10:52 Urine Urobilinogen < 2.0 mg/dL (<2.0) 10/16/19 10:52 Ur Leukocyte Esterase Neg (Negative) 10/16/19 10:52 Urine WBC (Auto) < 1.0 /HPF (0.0-6.0) 10/16/19 10:52 Urine RBC (Auto) 2.0 /HPF (0.0-6.0) 10/16/19 10:52 Urine Mucus Few /HPF 10/16/19 10:52 Urine Creatinine 315.9 mg/dL (0.1-20.0) H 10/18/19 Unknown Urine Sodium 10 mmol/L 10/18/19 Unknown Urine Potassium 28.30 mmol/L 10/18/19 Unknown Urine Urea Nitrogen 394 10/18/19 Unknown Urine Opiates Screen Presumptive negative 10/16/19 10:52 Urine Methadone Screen Presumptive negative 10/16/19 10:52 Ur Barbiturates Screen Presumptive negative 10/16/19 10:52 Ur Phencyclidine Scrn Presumptive negative 10/16/19 10:52 Ur Amphetamines Screen Presumptive negative 10/16/19 10:52 U Benzodiazepines Scrn Presumptive negative 10/16/19 10:52 Urine Cocaine Screen Presumptive negative 10/16/19 10:52 U Marijuana (THC) Screen Presumptive positive 10/16/19 10:52 Drugs of Abuse Note Disclamer 10/16/19 10:52 Active Medications - Current Medications Current Medications: Generic Name Dose Route Start Last Admin Trade Name Freq PRN Reason Stop Dose Admin Acetaminophen 650 mg 10/16/19 13:45 10/17/19 21:57 Tylenol PO 650 mg Q4H PRN Administration Pain MILD(1-3)/Fever >100.5/PEACOCK Aspirin 81 mg 10/19/19 14:00 10/25/19 11:18 Baby Aspirin PO 81 mg QDAY CESAR Administration Atorvastatin Calcium 20 mg 10/19/19 22:00 10/24/19 21:55 Lipitor PO 20 mg QHS CESAR Administration Atovaquone 1,500 mg 10/19/19 15:00 10/25/19 11:19 Mepron PO Not Given QDAY CESAR Benzonatate 100 mg 10/17/19 06:00 10/25/19 06:14 Tessalon Perles PO 100 mg Q8HR CESAR Administration Heparin Sodium (Porcine) 5,000 unit 10/16/19 22:00 10/25/19 11:19 Heparin SUB-Q Not Given Q12HR CESAR Dobutamine HCl/Dextrose 500 mg in 250 mls @ 12.54 mls/hr 10/23/19 11:00 10/24/19 11:58 Dobutrex Drip 500mg/D5w 250ml IV 5 mcg/kg/min TITR CESAR 12.54 mls/hr Administration 5 MCG/KG/MIN Lidocaine 1 each 10/17/19 15:00 10/25/19 11:20 Lidoderm 5% TD 1 each QDAY CESAR Administration Lorazepam 0.5 mg 10/17/19 02:36 10/24/19 21:54 Ativan PO 0.5 mg QHS CESAR Administration Metoprolol Succinate 25 mg 10/17/19 14:00 10/25/19 11:18 Metoprolol Xl PO 25 mg QDAY CESAR Administration Ondansetron HCl 4 mg 10/16/19 13:45 10/21/19 17:36 Zofran IV 4 mg Q8H PRN Administration Nausea And Vomiting Oxycodone/Acetaminophen 1 tab 10/18/19 00:00 10/24/19 22:02 Percocet 5/325 PO 1 tab Q6H PRN Administration Pain, Moderate (4-6) Potassium Chloride 40 meq 10/22/19 09:00 10/25/19 11:17 K-Dur PO 10/25/19 22:01 40 meq BID CESAR Administration Pseudoephedrine/Acetam/Chlorphenir 20 ml 10/18/19 09:53 10/24/19 11:36 Robitussin Ac PO 20 ml Q4H PRN Administration Cough Sodium Chloride 10 ml 10/16/19 22:00 10/24/19 21:55 Sodium Chloride Flush Syringe 10 Ml IV 10 ml BID CESAR Administration Sodium Chloride 10 ml 10/16/19 13:45 Sodium Chloride Flush Syringe 10 Ml IV PRN PRN LINE FLUSH Ticagrelor 90 mg 10/19/19 14:00 10/25/19 11:19 Brilinta PO 90 mg BID CESAR Administration Nutrition/Malnutrition Assess - Dietary Evaluation Nutrition/Malnutrition Findings: Nutrition Notes Start: 10/23/19 12:07 Freq: Status: Active Protocol: Document 10/23/19 12:07 AP (Rec: 10/23/19 12:22 AP [id number]) Co-Sign 10/23/19 12:07 LP Nutrition Notes Need for Assessment generated from: LOS Initial or Follow up Assessment Current Diagnosis Coronary Artery Disease, Hypertension,Heart Failure, Respiratory Failure, Hyperlipidemia Other Pertinent Diagnosis HIV, acidosis, SOB Current Diet Cardiac Labs/Tests Na 131 BUN 35 Cr 1.9 BG 64 Pertinent Medications percocet Lasix Ativan Zofran Height 6 ft 1 in Weight 83.6 kg [place] Body Weight (kg) 83.63 BMI 24.3 Intake Prior to Admission Poor Weight Status Appropriate Subjective/Other Information LOS. Pt states no recent weight loss. Pt states poor PO intakes and poor appetite. No wasting noted. Pt does not like Ensure at all, noted multiple unopened in room. Pt says he just "can't". Encouraged pt to drink one or two a day so he could get some nutrition instay. Pt just shook his head. Pt adament to get ativan for his building anxiety. 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 Is patient on ventilator? No Is Patient Ambulatory and/or Out of Bed Yes REE-([facility]-ambulatory/OOB) [ 2313.844 [id number]] Calculation Used for Recommendations [facility] Additional Notes PRO needs: 66-83g/day (0.8-1g/ kg) Fluid: Per 1500ml Nutrition Intervention Change Diet Order: Continue regular Add Supplement/Snack (indicate name/kcal Ensure Enlive once a day /protein ) Provides kCal: 350 Provides Protein (gm) 20 Goal #1 Pt meet >75% of kcal/PRO needs Anticipated Discharge Needs: Cardiac Follow-Up By: 10/26/19 Additional Comments F/U for PO intakes. ONS tolerance.
[2019-10-25] MEDS ORDERED: LORazepam 1 MG TAB PO STA (18:15)
--- NOTE | 2019-10-25 18:26 | Event Note ---
Date: 10/25/19 Patient is noncompliant with medications, pulls out IV access, refusing medications Having episodes of intermittent shortness of breath, panic attacks. Will treat with low-dose Ativan when necessary, Xanax if needed, consult psych baby sitter if needed. Plan of care discussed with the patient's nurse
[2019-10-25] MEDS: LORazepam 0.5 MG TAB PO SCH (22:27)
[2019-10-26] MEDS ORDERED: NICOTINE 14 MG/24 HR PATCH TD ONE (00:30)
[2019-10-26] MEDS: BENZONATATE 100 MG CAP PO SCH ×3 (06:02→22:39)
[2019-10-26 06:58] LABS: Calcium 8.7 mg/dL (8.4-10.2)
[2019-10-26] MEDS ORDERED: SODIUM POLYSTYRENE 15 GM/60 ML ORAL LIQD PO SCH (09:00)
[2019-10-26] MEDS: ASPIRIN 81 MG TAB CHEW PO SCH (09:51)
[2019-10-26] MEDS: TICAGRELOR 90 MG TAB PO SCH ×2 (09:51→22:39)
[2019-10-26] MEDS: METOPROLOL SUCCINATE XL 25 MG TAB PO SCH (09:51)
[2019-10-26] MEDS ORDERED: CALCIUM GLUCONATE 1,000 MG in SODIUM CHLORIDE 0.9% 100 ML IV ONE (10:00)
[2019-10-26] MEDS: LIDOCAINE 5% 1 EACH PATCH TD SCH (10:11)
[2019-10-26] MEDS: DOBUTamine/D5W 500 MG/250 ML 500 MG/250 ML BAG IV SCH (10:11)
[2019-10-26] MEDS: ATOVAQUONE 750 MG/5 ML ORAL SUSP PO SCH (10:58)
[2019-10-26] MEDS: HEPARIN 5,000 UNIT/1 ML VIAL SUB-Q SCH ×2 (10:58→22:46)
--- NOTE | 2019-10-26 11:18 | Progress Note ---
Assessment and Plan - Patient Problems (1) Hyponatremia Current Visit: Yes Status: Acute Plan to address problem: Na improved after 1 dose of tolvaptan. cont diuretic therapy with lasix 40mg po bid for volume control (2) Acute renal failure Current Visit: Yes Status: Acute Plan to address problem: likely secondary to acute cardio renal syndrome, cont inotropic support with dobutamine, avoid nephrotoxins, NSAIDs IV contrast (3) Acute HFrEF (heart failure with reduced ejection fraction) Current Visit: Yes Status: Acute Plan to address problem: Continue management by client relationship consultant (4) Acidosis Current Visit: Yes Status: Acute Plan to address problem: Resolved. Bicarbonate at goal (5) Acute and chronic respiratory failure with hypoxia Current Visit: Yes Status: Acute Plan to address problem: Improved with diuresis. (6) Hyperkalemia Current Visit: Yes Status: Acute Plan to address problem: treat with kayexalate, change to 2g K renal diet Subjective Date of service: 10/26/19 Principal diagnosis: HF with acute kidney injury Interval history: Pt awake, alert, in no acute respiratory distress. elevated K noted on this AM's labs Objective - Vital Signs Vital signs: Vital Signs - 12hr 10/25/19 10/26/19 10/26/19 23:54 03:54 08:34 Temperature 98.4 F 98.4 F Pulse Rate 80 70 66 Respiratory 18 18 18 Rate Blood Pressure 139/96 113/68 119/78 O2 Sat by Pulse 98 100 95 Oximetry - General Appearance General appearance: well-developed, appears stated age, chronically ill EENT: ATNC, PERRL, mucous membranes moist Neck: no JVD Respiratory: Present: Decreased Breath Sounds Cardiology: regular, S1S2 Gastrointestinal: normoactive bowel sounds Integumentary: no rash Neurologic: no focal deficit, alert and oriented x3, strength 5/5, CN 3-12 intact Psychiatric: mood/affect appropriate, cooperative - Lab 10/16/19 10:07 10/26/19 05:43 Most recent lab results ABG pH 7.423 pH Units (7.350-7.450) 10/16/19 11:45 ABG pCO2 36.0 mm Hg 10/16/19 11:45 ABG pO2 55.9 mm Hg (80.0-90.0) L 10/16/19 11:45 ABG HCO3 23.0 mmol/L (20.0-26.0) 10/16/19 11:45 ABG O2 Saturation 89.2 % (95.0-99.0) L 10/16/19 11:45 Calcium 8.7 mg/dL (8.4-10.2) 10/26/19 05:43 Magnesium 2.00 mg/dL (1.7-2.3) 10/16/19 16:50 Urine Creatinine 315.9 mg/dL (0.1-20.0) H 10/18/19 Unknown Urine Sodium 10 mmol/L 10/18/19 Unknown Medications & Allergies - Medications Allergies/Adverse Reactions: Allergies TL Inhibitors Adverse Reaction (Verified 07/31/19 07:48) Angioedema Home Medications: Home Medications Medication Instructions Recorded Confirmed Last Taken Type Albuterol INH(or & Nicu Only) 2 puff IH QID PRN #8.5 gram 10/17/19 Unknown Rx [ProAir HFA Inhaler] Metoprolol Succinate [Toprol Xl] 25 mg PO DAILY #30 tab.er.24h 10/17/19 Unknown Rx Torsemide 100 mg PO BID #60 10/17/19 Unknown Rx Active Medications: Generic Name Dose Route Start Last Admin Trade Name Freq PRN Reason Stop Dose Admin Acetaminophen 650 mg 10/16/19 13:45 10/17/19 21:57 Tylenol PO 650 mg Q4H PRN Administration Pain MILD(1-3)/Fever >100.5/[place] Aspirin 81 mg 10/19/19 14:00 10/26/19 09:51 Baby Aspirin PO 81 mg QDAY CESAR Administration Atorvastatin Calcium 20 mg 10/19/19 22:00 10/25/19 22:26 Lipitor PO 20 mg QHS CESAR Administration Atovaquone 1,500 mg 10/19/19 15:00 10/26/19 10:58 Mepron PO Not Given QDAY CESAR Benzonatate 100 mg 10/17/19 06:00 10/26/19 06:02 Tessalon Perles PO 100 mg Q8HR CESAR Administration Heparin Sodium (Porcine) 5,000 unit 10/16/19 22:00 10/26/19 10:58 Heparin SUB-Q Not Given Q12HR CESAR Dobutamine HCl/Dextrose 500 mg in 250 mls @ 12.54 mls/hr 10/23/19 11:00 10/26/19 10:11 Dobutrex Drip 500mg/D5w 250ml IV 5 mcg/kg/min TITR CESAR 12.54 mls/hr Administration 5 MCG/KG/MIN Lidocaine 1 each 10/17/19 15:00 10/26/19 10:11 Lidoderm 5% TD 1 each QDAY CESAR Administration Lorazepam 0.5 mg 10/17/19 02:36 10/25/19 22:27 Ativan PO 0.5 mg QHS CESAR Administration Lorazepam 1 mg 10/25/19 18:26 Ativan PO Q6H PRN Agitation Metoprolol Succinate 25 mg 10/17/19 14:00 10/26/19 09:51 Metoprolol Xl PO 25 mg QDAY CESAR Administration Nicotine 14 mg 10/26/19 22:00 Habitrol TD QDAY@2200 CESAR Ondansetron HCl 4 mg 10/16/19 13:45 10/21/19 17:36 Zofran IV 4 mg Q8H PRN Administration Nausea And Vomiting Oxycodone/Acetaminophen 1 tab 10/18/19 00:00 10/25/19 22:48 Percocet 5/325 PO 1 tab Q6H PRN Administration Pain, Moderate (4-6) Pseudoephedrine/Acetam/Chlorphenir 20 ml 10/18/19 09:53 10/24/19 11:36 Robitussin Ac PO 20 ml Q4H PRN Administration Cough Sodium Chloride 10 ml 10/16/19 22:00 10/25/19 22:27 Sodium Chloride Flush Syringe 10 Ml IV 10 ml BID CESAR Administration Sodium Chloride 10 ml 10/16/19 13:45 Sodium Chloride Flush Syringe 10 Ml IV PRN PRN LINE FLUSH Sodium Polystyrene Sulfonate 30 gm 10/26/19 09:00 10/26/19 10:13 Kionex PO 10/26/19 12:00 30 gm ONCE CESAR Administration Ticagrelor 90 mg 10/19/19 14:00 10/26/19 09:51 Brilinta PO 90 mg BID CESAR Administration
--- NOTE | 2019-10-26 12:14 | Progress Note ---
Assessment and Plan Pt states he is agreeable to dobutamine gtt - resume dobutamine gtt. Cont Toprol XL. No ACEI in setting of ACEI allergy. No ARB in setting of renal insufficiency. Diuretics held in setting of renal insufficiency. Monitor renal indices. Nephrology is following. The patient has been seen in conjunction with Dr. Quick who agrees with the assessment and plan of care. - Patient Problems (1) Acute on chronic HFrEF (heart failure with reduced ejection fraction) Current Visit: Yes Status: Acute (2) Nonischemic cardiomyopathy Current Visit: Yes Status: Chronic (3) CAD (coronary artery disease) Current Visit: Yes Status: Chronic (4) Stented coronary artery Current Visit: Yes Status: Chronic Plan to address problem: LHC from [place], [place] obtained - pt underwent LHC in 05/2019 with PCI of RCA into PDA, otherwise no significant CAD, EF 10%. (5) NAZ (acute kidney injury) Current Visit: Yes Status: Acute (6) Hyperkalemia Current Visit: Yes Status: Acute (7) Hyponatremia Current Visit: Yes Status: Acute (8) HTN (hypertension) Current Visit: Yes Status: Chronic (9) HIV infection Current Visit: Yes Status: Chronic Qualifiers: HIV symptom status: unspecified Qualified Code(s): B20 - Human immunodeficiency virus [HIV] disease (10) LBBB (left bundle branch block) Current Visit: Yes Status: Chronic (11) NSVT (nonsustained ventricular tachycardia) Current Visit: Yes Status: Chronic (12) History of angiotensin converting enzyme inhibitor (TL-I) allergy Current Visit: Yes Status: Chronic (13) Medical non-compliance Current Visit: Yes Status: Chronic (14) History of drug abuse Current Visit: Yes Status: Chronic (15) History of alcohol abuse Current Visit: Yes Status: Chronic (16) Tobacco use Current Visit: Yes Status: Chronic Subjective Date of service: 10/26/19 Principal diagnosis: HF with acute kidney injury Interval history: pt sitting upright in bed, still with SOB and BLE edema. He has been refusing some medications, including dobutamine gtt. he is refusing to wear remote ekg monitor. Objective Last Vital Signs Temp 98.4 F 10/26/19 03:54 Pulse 66 10/26/19 08:34 Resp 24 10/26/19 10:00 BP 119/78 10/26/19 08:34 Pulse Ox 98 10/26/19 10:00 - Physical Examination General: No Apparent Distress, Other (appears chronically ill and on oxygen) HEENT: Positive: PERRL Neck: Positive: neck supple, trachea midline Cardiac: Positive: Reg Rate and Rhythm, S1/S2 Lungs: Positive: Decreased Breath Sounds Neuro: Positive: Grossly Intact Abdomen: Positive: Soft. Negative: Tender Skin: Negative: Rash Musculoskeletal: No Pain Extremities: Present: edema (trace BLE) - Labs and Meds Comprehensive Metabolic Panel 10/26/19 Range/Units 05:43 Sodium 126 L (137-145) mmol/L Potassium 6.1 H* D (3.6-5.0) mmol/L Chloride 85.2 L (98-107) mmol/L Carbon Dioxide 23 (22-30) mmol/L BUN 52 H (9-20) mg/dL Creatinine 1.7 H (0.8-1.5) mg/dL Glucose 173 H (75-100) mg/dL Calcium 8.7 (8.4-10.2) mg/dL - Imaging and Cardiology EKG: report reviewed, image reviewed Echo: report reviewed - Allied health notes Allied health notes reviewed: nursing
--- NOTE | 2019-10-26 13:24 | Progress Note ---
Assessment and Plan Assessment and plan: --Patient had Brief episodes of depression and panic attacks yesterday Ativan as needed, psych consult for further evaluation and management --Severe hyponatremia; management per nephrology Mild improvement, monitor electrolytes --Hyperkalemia; IV calcium gluconate, Kayexalate Closely monitor electrolytes --Acute kidney injury; vasomotor nephropathy Mild improvement Renal function, cardiology started dobutamine again today Avoid nephrotoxins, nephrology following --Severe cardiomyopathy; EF of 10% Cardiology following, diuretics, beta blockers, allergic to tl inhibitors Input and output monitoring, on dobutamine drip --Acute on chronic systolic congestive heart failure EF 10% Diuresis on hold due to renal failure, nephrology following. Dobutamine drip per cardiology No TL inhibitor due to angioedema. Beta-juanito, may need LifeVest --Nonischemic cardiomyopathy; --Shortness of breath/orthopnea CTA negative, lower extremity Doppler negative, VQ scan negative. Repeat chest x-ray today. --History of HIV Not compliance with medications, outpatient ID follow-up PO Atovaquone 1500 mg daily as PCP prophylaxis, avoid Bactrim due to renal failure --Occasional drug use; marijuana Counseling advised to quit occasional drug use --Medical noncompliance ;preventive health counseling performed for 17 minutes DVT prophylaxis; ambulation as tolerated Possible discharge tomorrow if stable Disposition :per cardiology Plan of care is reviewed with the patient and his nurse Case discussed with cardiology, possible discharge tomorrow if stable Patient with severe cardiomyopathy with ejection fraction of 10% and acute kidney injury Evaluated by nephrology and cardiology, medications optimized, patient on dobutamine drip. Patient has been very noncompliant refusing medication, not cooperating. Continues to have intermittent episodes shortness of breath History Interval history: Patient seen and examined at the bedside Patient continues to be noncompliant with medication Continues to have worsening shortness of breath, continues to have hyponatremia Last night had brief episodes of acute panic attacks per nursing Today patient is upset and angry Denies chest pain and mild shortness of breath Vital signs reviewed Hospitalist Physical - Constitutional Vitals: Temp Pulse Resp BP Pulse Ox 97.9 F 75 18 116/88 97 10/26/19 12:29 10/26/19 12:29 10/26/19 12:29 10/26/19 12:29 10/26/19 12:29 General appearance: Present: mild distress, well-nourished - EENT Eyes: Present: PERRL, EOM intact - Neck Neck: Present: supple, normal ROM - Respiratory Respiratory effort: normal Respiratory: bilateral: diminished, rales, negative: rhonchi, wheezing - Cardiovascular Rhythm: regular Heart Sounds: Present: S1 & S2 - Extremities Extremities: no ischemia, No edema - Abdominal General gastrointestinal: soft, non-tender, non-distended, distended - Integumentary Integumentary: Present: clear, warm - Psychiatric Psychiatric: appropriate mood/affect, cooperative - Neurologic Neurologic: moves all extremities Results - Labs CBC & Chem 7: 10/16/19 10:07 10/26/19 05:43 Labs: Laboratory Last Values WBC 4.0 K/mm3 (4.5-11.0) L 10/16/19 10:07 RBC 4.27 M/mm3 (3.65-5.03) 10/16/19 10:07 Hgb 13.4 gm/dl (11.8-15.2) 10/16/19 10:07 Hct 40.2 % (35.5-45.6) 10/16/19 10:07 MCV 94 fl (84-94) 10/16/19 10:07 MCH 31 pg (28-32) 10/16/19 10:07 MCHC 33 % (32-34) 10/16/19 10:07 RDW 15.5 % (13.2-15.2) H 10/16/19 10:07 Plt Count 223 K/mm3 (140-440) 10/16/19 10:07 Lymph % (Auto) 29.0 % (13.4-35.0) 10/16/19 10:07 [place] % (Auto) 5.8 % (0.0-7.3) 10/16/19 10:07 Eos % (Auto) 1.3 % (0.0-4.3) 10/16/19 10:07 Baso % (Auto) 1.4 % (0.0-1.8) 10/16/19 10:07 Lymph # 1.2 K/mm3 (1.2-5.4) 10/16/19 10:07 [place] # 0.2 K/mm3 (0.0-0.8) 10/16/19 10:07 Eos # 0.1 K/mm3 (0.0-0.4) 10/16/19 10:07 Baso # 0.1 K/mm3 (0.0-0.1) 10/16/19 10:07 Seg Neutrophils % 62.5 % (40.0-70.0) 10/16/19 10:07 Seg Neutrophils # 2.5 K/mm3 (1.8-7.7) 10/16/19 10:07 PT 15.5 Sec. (12.2-14.9) H 10/16/19 10:32 INR 1.21 (0.87-1.13) H 10/16/19 10:32 APTT 35.3 Sec. (24.2-36.6) 10/16/19 10:32 D-Dimer 516.76 ng/mlDDU (0-234) H 10/16/19 10:32 ABG pH 7.423 pH Units (7.350-7.450) 10/16/19 11:45 ABG pCO2 36.0 mm Hg 10/16/19 11:45 ABG pO2 55.9 mm Hg (80.0-90.0) L 10/16/19 11:45 ABG HCO3 23.0 mmol/L (20.0-26.0) 10/16/19 11:45 ABG O2 Saturation 89.2 % (95.0-99.0) L 10/16/19 11:45 ABG O2 Content 16.4 (0.0-44) 10/16/19 11:45 ABG Base Excess -1.0 mmol/L (-2.0-3.0) 10/16/19 11:45 ABG Hemoglobin 13.4 gm/dl (14.0-18.0) L 10/16/19 11:45 ABG Carboxyhemoglobin 2.1 % (0.0-5.0) 10/16/19 11:45 ABG Methemoglobin 0.5 % (0.0-1.5) 10/16/19 11:45 Oxyhemoglobin 86.8 % (95.0-99.0) L 10/16/19 11:45 FiO2 32 % 10/16/19 11:45 Sodium 126 mmol/L (137-145) L 10/26/19 05:43 Potassium 6.1 mmol/L (3.6-5.0) H* D 10/26/19 05:43 Chloride 85.2 mmol/L (98-107) L 10/26/19 05:43 Carbon Dioxide 23 mmol/L (22-30) 10/26/19 05:43 Anion Gap 24 mmol/L 10/26/19 05:43 BUN 52 mg/dL (9-20) H 10/26/19 05:43 Creatinine 1.7 mg/dL (0.8-1.5) H 10/26/19 05:43 Estimated GFR 53 ml/min 10/26/19 05:43 BUN/Creatinine Ratio 31 % 10/26/19 05:43 Glucose 173 mg/dL (75-100) H 10/26/19 05:43 Osmolality 280 Mosm/kg 10/24/19 10:58 Uric Acid 15.0 mg/dL (3.5-7.6) H 10/24/19 10:58 Calcium 8.7 mg/dL (8.4-10.2) 10/26/19 05:43 Magnesium 2.00 mg/dL (1.7-2.3) 10/16/19 16:50 Total Bilirubin 1.00 mg/dL (0.1-1.2) 10/16/19 10:32 Direct Bilirubin 0.4 mg/dL (0-0.2) H 10/16/19 10:32 Indirect Bilirubin 0.6 mg/dL 10/16/19 10:32 AST 28 units/L (5-40) 10/16/19 10:32 ALT 16 units/L (7-56) 10/16/19 10:32 Alkaline Phosphatase 86 units/L (35-129) 10/16/19 10:32 Total Creatine Kinase 405 units/L (55-170) H 10/16/19 10:32 CK-MB (CK-2) 3.2 ng/mL (0.0-4.0) 10/16/19 10:32 CK-MB (CK-2) Rel Index 0.7 (0-4) 10/16/19 10:32 Troponin T 0.017 ng/mL (0.00-0.029) 10/16/19 16:50 NT-Pro-B Natriuret Pep 4791 pg/mL (0-450) H 10/16/19 10:07 Total Protein 8.0 g/dL (6.3-8.2) 10/16/19 10:32 Albumin 3.7 g/dL (3.9-5) L 10/16/19 10:32 Albumin/Globulin Ratio 0.9 % 10/16/19 10:32 Triglycerides 72 mg/dL (2-149) 10/20/19 05:18 Cholesterol 82 mg/dL (50-199) 10/20/19 05:18 LDL Cholesterol Direct 46 mg/dL (50-130) L 10/20/19 05:18 HDL Cholesterol 28 mg/dL (40-59) L 10/20/19 05:18 Cholesterol/HDL Ratio 2.92 % 10/20/19 05:18 TSH 1.540 mlU/mL (0.270-4.200) 10/16/19 16:50 Free T4 1.23 ng/dL (0.76-1.46) 10/16/19 16:50 Urine Color Yellow (Yellow) 10/16/19 10:52 Urine Turbidity Clear (Clear) 10/16/19 10:52 Urine pH 5.0 (5.0-7.0) 10/16/19 10:52 Ur Specific Allred 1.015 (1.003-1.030) 10/16/19 10:52 Urine Protein 30 mg/dl mg/dL (Negative) 10/16/19 10:52 Urine Glucose (UA) Neg mg/dL (Negative) 10/16/19 10:52 Urine Ketones Neg mg/dL (Negative) 10/16/19 10:52 Urine Blood Neg (Negative) 10/16/19 10:52 Urine Nitrite Neg (Negative) 10/16/19 10:52 Urine Bilirubin Neg (Negative) 10/16/19 10:52 Urine Urobilinogen < 2.0 mg/dL (<2.0) 10/16/19 10:52 Ur Leukocyte Esterase Neg (Negative) 10/16/19 10:52 Urine WBC (Auto) < 1.0 /HPF (0.0-6.0) 10/16/19 10:52 Urine RBC (Auto) 2.0 /HPF (0.0-6.0) 10/16/19 10:52 Urine Mucus Few /HPF 10/16/19 10:52 Urine Creatinine 315.9 mg/dL (0.1-20.0) H 10/18/19 Unknown Urine Sodium 10 mmol/L 10/18/19 Unknown Urine Potassium 28.30 mmol/L 10/18/19 Unknown Urine Urea Nitrogen 394 10/18/19 Unknown Urine Opiates Screen Presumptive negative 10/16/19 10:52 Urine Methadone Screen Presumptive negative 10/16/19 10:52 Ur Barbiturates Screen Presumptive negative 10/16/19 10:52 Ur Phencyclidine Scrn Presumptive negative 10/16/19 10:52 Ur Amphetamines Screen Presumptive negative 10/16/19 10:52 U Benzodiazepines Scrn Presumptive negative 10/16/19 10:52 Urine Cocaine Screen Presumptive negative 10/16/19 10:52 U Marijuana (THC) Screen Presumptive positive 10/16/19 10:52 Drugs of Abuse Note Disclamer 10/16/19 10:52 Active Medications - Current Medications Current Medications: Generic Name Dose Route Start Last Admin Trade Name Freq PRN Reason Stop Dose Admin Acetaminophen 650 mg 10/16/19 13:45 10/17/19 21:57 Tylenol PO 650 mg Q4H PRN Administration Pain MILD(1-3)/Fever >100.5/[place]OCK Aspirin 81 mg 10/19/19 14:00 10/26/19 09:51 Baby Aspirin PO 81 mg QDAY CESAR Administration Atorvastatin Calcium 20 mg 10/19/19 22:00 10/25/19 22:26 Lipitor PO 20 mg QHS CESAR Administration Atovaquone 1,500 mg 10/19/19 15:00 10/26/19 10:58 Mepron PO Not Given QDAY [facility] Benzonatate 100 mg 10/17/19 06:00 10/26/19 06:02 Tessalon Perles PO 100 mg Q8HR CESAR Administration Furosemide 40 mg 10/26/19 12:00 Lasix PO BID [facility] Heparin Sodium (Porcine) 5,000 unit 10/16/19 22:00 10/26/19 10:58 Heparin SUB-Q Not Given Q12HR [facility] Dobutamine HCl/Dextrose 500 mg in 250 mls @ 12.54 mls/hr 10/23/19 11:00 10/26/19 10:11 Dobutrex Drip 500mg/D5w 250ml IV 5 mcg/kg/min TITR CESAR 12.54 mls/hr Administration 5 MCG/KG/MIN Lidocaine 1 each 10/17/19 15:00 10/26/19 10:11 Lidoderm 5% TD 1 each QDAY CESAR Administration Lorazepam 0.5 mg 10/17/19 02:36 10/25/19 22:27 Ativan PO 0.5 mg QHS CESAR Administration Lorazepam 1 mg 10/25/19 18:26 Ativan PO Q6H PRN Agitation Metoprolol Succinate 25 mg 10/17/19 14:00 10/26/19 09:51 Metoprolol Xl PO 25 mg QDAY CESAR Administration Nicotine 14 mg 10/26/19 22:00 Habitrol TD QDAY@2200 CESAR Ondansetron HCl 4 mg 10/16/19 13:45 10/21/19 17:36 Zofran IV 4 mg Q8H PRN Administration Nausea And Vomiting Oxycodone/Acetaminophen 1 tab 10/18/19 00:00 10/25/19 22:48 Percocet 5/325 PO 1 tab Q6H PRN Administration Pain, Moderate (4-6) Pseudoephedrine/Acetam/Chlorphenir 20 ml 10/18/19 09:53 10/24/19 11:36 Robitussin Ac PO 20 ml Q4H PRN Administration Cough Sodium Chloride 10 ml 10/16/19 22:00 10/25/19 22:27 Sodium Chloride Flush Syringe 10 Ml IV 10 ml BID CESAR Administration Sodium Chloride 10 ml 10/16/19 13:45 Sodium Chloride Flush Syringe 10 Ml IV PRN PRN LINE FLUSH Ticagrelor 90 mg 10/19/19 14:00 10/26/19 09:51 Brilinta PO 90 mg BID CESAR Administration Nutrition/Malnutrition Assess - Dietary Evaluation Nutrition/Malnutrition Findings: Nutrition Notes Start: 10/23/19 12:07 Freq: Status: Active Protocol: Document 10/26/19 12:45 LM (Rec: 10/26/19 12:50 LM [email or web address]) Nutrition Notes Initial or Follow up Reassessment Current Diagnosis Coronary Artery Disease, Hypertension,Heart Failure, Respiratory Failure, Hyperlipidemia Other Pertinent Diagnosis HIV, acidosis, SOB Current Diet Cardiac Labs/Tests Na 126 K 6.1 BUN 52 Cr 1.7 BG 173 Pertinent Medications Reviewed Height 6 ft 1 in Weight 83 kg [place] Body Weight (kg) 83.63 BMI 24.1 Weight Status Appropriate Subjective/Other Information Pt stated he only ate some eggs this AM. Pt stated the Ensure is ok and will drink them but Ensure was unopened this AM. Percent of energy/protein needs met: 23%/31% Burn Absent Trauma Absent GI Symptoms None Current % PO Poor (25-49%) Minimum of two criteria No Energy Intake (severe) < or equal to 50% Estimated Energy Requirement > or equal to 5 days #1 Nutrition Diagnosis Inadequate oral intake Diagnosis Progress(for reassessment Continues documentation) Is patient on ventilator? No Is Patient Ambulatory and/or Out of Bed Yes REE-([facility]-ambulatory/OOB) [ 2306.044 [id number]] Calculation Used for Recommendations [facility] Additional Notes PRO needs: 66-83g/day (0.8-1g/ kg) Fluid: Per 1500ml Nutrition Intervention Change Diet Order: Cardiac Add Supplement/Snack (indicate name/kcal Ensure Enlive once a day /protein ) Provides kCal: 350 Provides Protein (gm) 20 Goal #1 Pt meet >75% of kcal/PRO needs Anticipated Discharge Needs: Cardiac and ONS Follow-Up By: 10/28/19 Additional Comments F/U for PO/ONS intakes
[2019-10-26] MEDS: FUROSEMIDE 20 MG TAB PO SCH ×2 (18:57→22:39)
[2019-10-26] MEDS: LORazepam 1 MG TAB PO PRN (18:57)
[2019-10-26] MEDS ORDERED: NICOTINE 14 MG/24 HR PATCH TD SCH (22:00)
[2019-10-26] MEDS: LORazepam 0.5 MG TAB PO SCH (22:39)
[2019-10-27] MEDS: BENZONATATE 100 MG CAP PO SCH ×3 (01:05→14:26)
[2019-10-27] MEDS: oxyCODONE /ACETAMINOPHEN 5-325MG TAB PO PRN ×2 (01:33→10:18)
[2019-10-27] MEDS: LORazepam 1 MG TAB PO PRN (01:35)
[2019-10-27 06:53] LABS: BUN/Creatinine Ratio 32; Blood Urea Nitrogen 32 mg/dL (9-20); Calcium 8.5 mg/dL (8.4-10.2); Hemolysis Index 94
[2019-10-27] MEDS: DOBUTamine/D5W 500 MG/250 ML 500 MG/250 ML BAG IV SCH (08:06)
[2019-10-27] MEDS: FUROSEMIDE 20 MG TAB PO SCH (10:18)
[2019-10-27] MEDS: ASPIRIN 81 MG TAB CHEW PO SCH (10:18)
[2019-10-27] MEDS: TICAGRELOR 90 MG TAB PO SCH (10:18)
[2019-10-27] MEDS: ATOVAQUONE 750 MG/5 ML ORAL SUSP PO SCH (10:21)
[2019-10-27] MEDS: METOPROLOL SUCCINATE XL 25 MG TAB PO SCH (10:22)
[2019-10-27] MEDS: HEPARIN 5,000 UNIT/1 ML VIAL SUB-Q SCH (10:24)
--- NOTE | 2019-10-27 11:09 | Consultation ---
History of Present Illness - Reason for Consult Consult date: 10/27/19 Reason for consult: Depression - Chief Complaint Chief complaint: panic attacks - History of Present Psychiatric Illness Chidi Starkey is a 44y/o male patient who states he was admitted into the hospital because he "got short of breath and was about to pass out from losing his breath." He is a/o x 3. Appears slightly drowsy. He is dressed appropriately. He is calm and cooperative. The patient says he "suffers from panic attacks." He also says he feels "depressed because I'm tired of coming in and out of the hospital." The patient then says, "I want to go home." He says he "doesn't sleep well at night," because he's "up doing things and then gets short of breath." The patient says he does "a little cocaine." But says he last did it "a month ago." The patient denies any suicidal tendencies or thoughts. He also denies any homicidal thoughts. He denies any suicidal attempts in the past. He says he has a past history of "depression, and anxiety." He says he hasn't seen a psychiatrist in "years." He also says he hasn't taken any medication in "y ears." The patient says he was "admitted into the hospital a long time ago for anxiety." He says, "they give me klonopin or xanax and then start me on my breathing medications and then I'm better." He says about a "month ago he was seeing things that weren't really what they seem." He then says, "like this coat, I would think it was somebody but it's just a coat." The patient thanks for for coming by, and then states, "I'm ready to go home. Can you pass that on to the team." PAST PSYCHIATRIC HISTORY: Diagnoses: Depression, panic attacks, anxiety Suicide attempts or Self-harm behavior: Denies Prior psychiatric hospitalizations: One Substance Abuse history: Cocaine Previous psychiatric medications tried: xanax, abilify Outpatient treatment: Denies PAST MEDICAL HISTORY: HIV, CHF, HTN Family Psychiatric History None reported or documented SOCIAL HISTORY Marital Status: Single Living Arrangements: with roommate Employment Status: Disabled Access to guns/weapons: Denies Education: some 10th Legal History: "spits and spats, not a lot" REVIEW OF SYSTEMS Constitutional: Negative for weight loss ENT: Negative for stridor Respiratory: Negative for cough or hemoptysis All other systems reviewed and are negative MSE Appearance: Dressed appropriately. Behavior: calm and cooperative. Fair eye contact Mood: Depressed Affect: Congruent Thought Process: Goal directed Speech: Normal tone and pace Thought Content Suicidal: Denies Homicidal: Denies Hallucinations: Denies Delusions: Yes, about a month ago Consciousness: Alert Cognition/Memory: Fair Insight/Judgment: Fair Assessment: Major Depressive Disorder Plan: D/C 1013 Medications Zoloft 25mg po daily Risperidone 0.25mg po BID Doxepin 10mg po QHS Sitter: Defer to primary Medical: Per primary Disposition: The patient does not meet the criteria for acute inpatient psychiatric treatment at this time. He may discharge home once medically clear. The patient is to follow up with outpatient psychiatry or primary in 7 to 10 days for medication management and therapy No use of drugs or alcohol. Medications and Allergies Allergies Allergy/AdvReac Type Severity Reaction Status Date / Time TL Inhibitors AdvReac Angioedema Verified 07/31/19 07:48 Home Medications Medication Instructions Recorded Confirmed Last Taken Type Albuterol INH(or & Nicu Only) 2 puff IH QID PRN #8.5 gram 10/17/19 Unknown Rx [ProAir HFA Inhaler] Metoprolol Succinate [Toprol Xl] 25 mg PO DAILY #30 tab.er.24h 10/17/19 Unknown Rx Torsemide 100 mg PO BID #60 10/17/19 Unknown Rx Doxepin [SINEquan] 10 mg PO QHS #30 capsule 10/27/19 Unknown Rx Sertraline [Zoloft] 25 mg PO QDAY #30 tab 10/27/19 Unknown Rx risperiDONE [RisperDAL] 0.25 mg PO BID #60 tab 10/27/19 Unknown Rx Active Meds: Active Medications Acetaminophen (Tylenol) 650 mg PO Q4H PRN PRN Reason: Pain MILD(1-3)/Fever >100.5/[place] Last Admin: 10/17/19 21:57 Dose: 650 mg Documented by: Aspirin (Baby Aspirin) 81 mg PO QDAY CESAR Last Admin: 10/27/19 10:18 Dose: 81 mg Documented by: Atorvastatin Calcium (Lipitor) 20 mg PO QHS [facility] Last Admin: 10/26/19 22:38 Dose: 20 mg Documented by: Atovaquone (Mepron) 1,500 mg PO QDAY [facility] Last Admin: 10/27/19 10:21 Dose: Not Given Documented by: Benzonatate (Tessalon Perles) 100 mg PO Q8HR [facility] Last Admin: 10/27/19 05:22 Dose: 100 mg Documented by: Furosemide (Lasix) 40 mg PO BID [facility] Last Admin: 10/27/19 10:18 Dose: 40 mg Documented by: Heparin Sodium (Porcine) (Heparin) 5,000 unit SUB-Q Q12HR [facility] Last Admin: 10/27/19 10:24 Dose: Not Given Documented by: Dobutamine HCl/Dextrose (Dobutrex Drip 500mg/D5w 250ml) 500 mg in 250 mls @ 12.54 mls/hr IV TITR [facility] Last Admin: 10/27/19 08:06 Dose: 5 mcg/kg/min, 12.54 mls/hr Documented by: Lidocaine (Lidoderm 5%) 1 each TD QDAY [facility] Last Admin: 10/26/19 10:11 Dose: 1 each Documented by: Lorazepam (Ativan) 0.5 mg PO QHS [facility] Last Admin: 10/26/19 22:39 Dose: 0.5 mg Documented by: Lorazepam (Ativan) 1 mg PO Q6H PRN PRN Reason: Agitation Last Admin: 10/27/19 01:35 Dose: 1 mg Documented by: Metoprolol Succinate (Metoprolol Xl) 25 mg PO QDAY [facility] Last Admin: 10/27/19 10:22 Dose: 25 mg Documented by: Nicotine (Habitrol) 14 mg TD QDAY@2200 [facility] Last Admin: 10/26/19 22:39 Dose: 14 mg Documented by: Ondansetron HCl (Zofran) 4 mg IV Q8H PRN PRN Reason: Nausea And Vomiting Last Admin: 10/21/19 17:36 Dose: 4 mg Documented by: Oxycodone/Acetaminophen (Percocet 5/325) 1 tab PO Q6H PRN PRN Reason: Pain, Moderate (4-6) Last Admin: 10/27/19 10:18 Dose: 1 tab Documented by: Pseudoephedrine/Acetam/Chlorphenir (Robitussin Ac) 20 ml PO Q4H PRN PRN Reason: Cough Last Admin: 10/24/19 11:36 Dose: 20 ml Documented by: Sodium Chloride (Sodium Chloride Flush Syringe 10 Ml) 10 ml IV BID [facility] Last Admin: 10/27/19 10:19 Dose: 10 ml Documented by: Sodium Chloride (Sodium Chloride Flush Syringe 10 Ml) 10 ml IV PRN PRN PRN Reason: LINE FLUSH Ticagrelor (Brilinta) 90 mg PO BID [facility] Last Admin: 10/27/19 10:18 Dose: 90 mg Documented by: Mental Status Exam - Vital signs Last Vital Signs Temp 98.0 F 10/27/19 08:13 Pulse 102 H 10/27/19 10:22 Resp 18 10/27/19 08:13 BP 108/60 10/27/19 10:22 Pulse Ox 96 10/27/19 03:37 Results Result Diagrams: 10/16/19 10:07 10/27/19 06:12 Abnormal lab results 10/27/19 Range/Units 06:12 Sodium 135 L D (137-145) mmol/L Chloride 92.1 L (98-107) mmol/L BUN 32 H (9-20) mg/dL Glucose 125 H (75-100) mg/dL All other labs normal.
--- NOTE | 2019-10-27 11:16 | Progress Note ---
Assessment and Plan - Patient Problems (1) Hyponatremia Current Visit: Yes Status: Acute Plan to address problem: Na improved. cont diuretic therapy with lasix 40mg po bid for volume control. cont Na/1.5L/day fluid restriction (2) Acute renal failure Current Visit: Yes Status: Acute Plan to address problem: likely secondary to acute cardio renal syndrome, cont inotropic support with dobutamine, avoid nephrotoxins, NSAIDs IV contrast (3) Acute HFrEF (heart failure with reduced ejection fraction) Current Visit: Yes Status: Acute Plan to address problem: Continue management by box office attendant (4) Acidosis Current Visit: Yes Status: Acute Plan to address problem: Resolved. Bicarbonate at goal (5) Acute and chronic respiratory failure with hypoxia Current Visit: Yes Status: Acute Plan to address problem: Improved with diuresis. (6) Hyperkalemia Current Visit: Yes Status: Acute Plan to address problem: treated with kayexalate, cont 2g K renal diet Subjective Date of service: 10/27/19 Principal diagnosis: HF with acute kidney injury Interval history: Pt awake, alert, in no acute respiratory distress. Objective - Vital Signs Vital signs: Vital Signs - 12hr 10/26/19 10/26/19 10/26/19 23:17 23:21 23:52 Temperature 97.5 F L Pulse Rate 86 Pulse Rate [ 86 From Monitor] Respiratory 20 Rate Blood Pressure 125/84 O2 Sat by Pulse 96 100 Oximetry 10/27/19 10/27/19 10/27/19 03:37 08:13 10:22 Temperature 97.4 F L 98.0 F Pulse Rate 91 H 102 H Pulse Rate [ From Monitor] Respiratory 18 18 Rate Blood Pressure 108/67 107/62 108/60 O2 Sat by Pulse 96 Oximetry - General Appearance General appearance: well-developed, well-nourished, appears stated age EENT: ATNC, PERRL, mucous membranes moist Neck: no JVD Respiratory: Present: Decreased Breath Sounds Cardiology: regular, S1S2 Gastrointestinal: normoactive bowel sounds Integumentary: no rash, other (no edema ) Neurologic: no focal deficit, alert and oriented x3, strength 5/5, CN 3-12 intact Psychiatric: mood/affect appropriate, cooperative - Lab 10/16/19 10:07 10/27/19 06:12 Most recent lab results ABG pH 7.423 pH Units (7.350-7.450) 10/16/19 11:45 ABG pCO2 36.0 mm Hg 10/16/19 11:45 ABG pO2 55.9 mm Hg (80.0-90.0) L 10/16/19 11:45 ABG HCO3 23.0 mmol/L (20.0-26.0) 10/16/19 11:45 ABG O2 Saturation 89.2 % (95.0-99.0) L 10/16/19 11:45 Calcium 8.5 mg/dL (8.4-10.2) 10/27/19 06:12 Magnesium 2.00 mg/dL (1.7-2.3) 10/16/19 16:50 Urine Creatinine 315.9 mg/dL (0.1-20.0) H 10/18/19 Unknown Urine Sodium 10 mmol/L 10/18/19 Unknown Medications & Allergies - Medications Allergies/Adverse Reactions: Allergies TL Inhibitors Adverse Reaction (Verified 07/31/19 07:48) Angioedema Home Medications: Home Medications Medication Instructions Recorded Confirmed Last Taken Type Albuterol INH(or & Nicu Only) 2 puff IH QID PRN #8.5 gram 10/17/19 Unknown Rx [ProAir HFA Inhaler] Metoprolol Succinate [Toprol Xl] 25 mg PO DAILY #30 tab.er.24h 10/17/19 Unknown Rx Torsemide 100 mg PO BID #60 10/17/19 Unknown Rx Doxepin [SINEquan] 10 mg PO QHS #30 capsule 10/27/19 Unknown Rx Sertraline [Zoloft] 25 mg PO QDAY #30 tab 10/27/19 Unknown Rx risperiDONE [RisperDAL] 0.25 mg PO BID #60 tab 10/27/19 Unknown Rx Active Medications: Generic Name Dose Route Start Last Admin Trade Name Freq PRN Reason Stop Dose Admin Acetaminophen 650 mg 10/16/19 13:45 10/17/19 21:57 Tylenol PO 650 mg Q4H PRN Administration Pain MILD(1-3)/Fever >100.5/PEACOCK Aspirin 81 mg 10/19/19 14:00 10/27/19 10:18 Baby Aspirin PO 81 mg QDAY CESAR Administration Atorvastatin Calcium 20 mg 10/19/19 22:00 10/26/19 22:38 Lipitor PO 20 mg QHS CESAR Administration Atovaquone 1,500 mg 10/19/19 15:00 10/27/19 10:21 Mepron PO Not Given QDAY CESAR Benzonatate 100 mg 10/17/19 06:00 10/27/19 05:22 Tessalon Perles PO 100 mg Q8HR CESAR Administration Doxepin HCl 10 mg 10/27/19 22:00 Sinequan PO QHS CESAR Furosemide 40 mg 10/26/19 12:00 10/27/19 10:18 Lasix PO 40 mg BID CESAR Administration Heparin Sodium (Porcine) 5,000 unit 10/16/19 22:00 10/27/19 10:24 Heparin SUB-Q Not Given Q12HR CESAR Dobutamine HCl/Dextrose 500 mg in 250 mls @ 12.54 mls/hr 10/23/19 11:00 10/27/19 08:06 Dobutrex Drip 500mg/D5w 250ml IV 5 mcg/kg/min TITR CESAR 12.54 mls/hr Administration 5 MCG/KG/MIN Lidocaine 1 each 10/17/19 15:00 10/26/19 10:11 Lidoderm 5% TD 1 each QDAY CESAR Administration Lorazepam 0.5 mg 10/17/19 02:36 10/26/19 22:39 Ativan PO 0.5 mg QHS CESAR Administration Lorazepam 1 mg 10/25/19 18:26 10/27/19 01:35 Ativan PO 1 mg Q6H PRN Administration Agitation Metoprolol Succinate 25 mg 10/17/19 14:00 10/27/19 10:22 Metoprolol Xl PO 25 mg QDAY CESAR Administration Nicotine 14 mg 10/26/19 22:00 10/26/19 22:39 Habitrol TD 14 mg QDAY@2200 CESAR Administration Ondansetron HCl 4 mg 10/16/19 13:45 10/21/19 17:36 Zofran IV 4 mg Q8H PRN Administration Nausea And Vomiting Oxycodone/Acetaminophen 1 tab 10/18/19 00:00 10/27/19 10:18 Percocet 5/325 PO 1 tab Q6H PRN Administration Pain, Moderate (4-6) Pseudoephedrine/Acetam/Chlorphenir 20 ml 10/18/19 09:53 10/24/19 11:36 Robitussin Ac PO 20 ml Q4H PRN Administration Cough Risperidone 0.25 mg 10/27/19 12:00 Risperdal PO BID CESAR Sertraline HCl 25 mg 10/27/19 12:00 Zoloft PO QDAY CESAR Sodium Chloride 10 ml 10/16/19 22:00 10/27/19 10:19 Sodium Chloride Flush Syringe 10 Ml IV 10 ml BID CESAR Administration Sodium Chloride 10 ml 10/16/19 13:45 Sodium Chloride Flush Syringe 10 Ml IV PRN PRN LINE FLUSH Ticagrelor 90 mg 10/19/19 14:00 10/27/19 10:18 Brilinta PO 90 mg BID CESAR Administration
[2019-10-27] MEDS ORDERED: SERTRALINE 25 MG TAB PO SCH (12:00)
[2019-10-27] MEDS ORDERED: risperiDONE 0.25 MG TAB PO SCH (12:00)
--- NOTE | 2019-10-27 13:23 | Progress Note ---
Assessment and Plan Cont dobutamine gtt. Cont Toprol XL. No ACEI in setting of ACEI allergy. No ARB in setting of renal insufficiency. PO lasix per nephrology. Monitor renal indices. Pt noted to have new LLE swelling > RLE. Venous dopplers done 10/19/2019 were negative for DVT. Will f/u LLE venous duplex. The patient has been seen in conjunction with Dr. Quick who agrees with the assessment and plan of care. - Patient Problems (1) Acute on chronic HFrEF (heart failure with reduced ejection fraction) Current Visit: Yes Status: Acute (2) Nonischemic cardiomyopathy Current Visit: Yes Status: Chronic (3) CAD (coronary artery disease) Current Visit: Yes Status: Chronic (4) Stented coronary artery Current Visit: Yes Status: Chronic Plan to address problem: LHC from [place], [place] obtained - pt underwent LHC in 05/2019 with PCI of RCA into PDA, otherwise no significant CAD, EF 10%. (5) NAZ (acute kidney injury) Current Visit: Yes Status: Acute (6) Hyperkalemia Current Visit: Yes Status: Acute (7) Hyponatremia Current Visit: Yes Status: Acute (8) HTN (hypertension) Current Visit: Yes Status: Chronic (9) HIV infection Current Visit: Yes Status: Chronic Qualifiers: HIV symptom status: unspecified Qualified Code(s): B20 - Human immunodeficiency virus [HIV] disease (10) LBBB (left bundle branch block) Current Visit: Yes Status: Chronic (11) NSVT (nonsustained ventricular tachycardia) Current Visit: Yes Status: Chronic (12) History of angiotensin converting enzyme inhibitor (TL-I) allergy Current Visit: Yes Status: Chronic (13) Medical non-compliance Current Visit: Yes Status: Chronic (14) History of drug abuse Current Visit: Yes Status: Chronic (15) History of alcohol abuse Current Visit: Yes Status: Chronic (16) Tobacco use Current Visit: Yes Status: Chronic Subjective Date of service: 10/27/19 Principal diagnosis: HF with acute kidney injury Interval history: pt sitting upright in bed, states he is feeling a little better. dobutamine gtt infusing. refused to wear night monitor overnight, it was placed this AM, currently in ST HR 101. Objective Last Vital Signs Temp 98.0 F 10/27/19 08:13 Pulse 102 H 10/27/19 10:22 Resp 18 10/27/19 08:13 BP 108/60 10/27/19 10:22 Pulse Ox 96 10/27/19 03:37 - Physical Examination General: No Apparent Distress, Other (appears chronically ill and on oxygen) HEENT: Positive: PERRL Neck: Positive: neck supple, trachea midline Cardiac: Positive: Regular Rhythm, S1/S2 Lungs: Positive: Decreased Breath Sounds Neuro: Positive: Grossly Intact Abdomen: Positive: Soft. Negative: Tender Skin: Negative: Rash Musculoskeletal: No Pain Extremities: Present: edema (trace BLE) - Labs and Meds Comprehensive Metabolic Panel 10/27/19 Range/Units 06:12 Sodium 135 L D (137-145) mmol/L Potassium 3.7 D (3.6-5.0) mmol/L Chloride 92.1 L (98-107) mmol/L Carbon Dioxide 30 D (22-30) mmol/L BUN 32 H (9-20) mg/dL Creatinine 1.0 (0.8-1.5) mg/dL Glucose 125 H (75-100) mg/dL Calcium 8.5 (8.4-10.2) mg/dL - Imaging and Cardiology EKG: report reviewed, image reviewed Echo: report reviewed - Allied health notes Allied health notes reviewed: nursing
[2019-10-27 14:23] VITALS: BP 108/71
[2019-10-27] MEDS: LIDOCAINE 5% 1 EACH PATCH TD SCH (14:23)
--- NOTE | 2019-10-27 16:05 | Vascular Lab Report ---
VL venous duplex LE LT INDICATION / CLINICAL INFORMATION: LLE swelling. COMPARISON: None available. FINDINGS: No evidence of deep vein thrombosis in the left leg. Signer Name: Delio Nelson MD Signed: 10/27/2019 4:01 PM Workstation Name: [id number]
--- NOTE | 2019-10-27 18:38 | Progress Note ---
Assessment and Plan Assessment and plan: --Severe cardiomyopathy; EF of 10% Cardiology following, diuretics, beta blockers, allergic to tl inhibitors Input and output monitoring, on dobutamine drip --Acute on chronic systolic congestive heart failure EF 10% Diuresis on hold due to renal failure, nephrology following. Dobutamine drip per cardiology No TL inhibitor due to angioedema. Beta-juanito, may need LifeVest --Nonischemic cardiomyopathy; --Patient had Brief episodes of depression and panic attacks yesterday Ativan as needed, psych consult for further evaluation and management --Severe hyponatremia; significantly improved --Hyperkalemia; improved --Acute kidney injury; vasomotor nephropathy Mild improvement Renal function, cardiology started dobutamine again today Avoid nephrotoxins, nephrology following --Shortness of breath/orthopnea CTA negative, lower extremity Doppler negative, VQ scan negative. Repeat chest x-ray today. --History of HIV Not compliance with medications, outpatient ID follow-up PO Atovaquone 1500 mg daily as PCP prophylaxis, avoid Bactrim due to renal failure --Occasional drug use; marijuana Counseling advised to quit occasional drug use --Medical noncompliance ;preventive health counseling performed for 17 minutes DVT prophylaxis; ambulation as tolerated Possible discharge tomorrow if stable Disposition :per cardiology Plan of care is reviewed with the patient and his nurse Case discussed with cardiology, possible discharge tomorrow if stable Patient with severe cardiomyopathy with ejection fraction of 10% and acute kidney injury Evaluated by nephrology and cardiology, medications optimized, patient on dobutamine drip. Patient has been very noncompliant refusing medication, not cooperating. Continues to have intermittent episodes shortness of breath Hospitalist Physical - Constitutional Vitals: Temp Pulse Resp BP Pulse Ox 98.0 F 105 H 18 108/71 92 10/27/19 08:13 10/27/19 13:09 10/27/19 13:09 10/27/19 13:09 10/27/19 13:09 General appearance: Present: mild distress, well-nourished Results - Labs CBC & Chem 7: 10/16/19 10:07 10/27/19 06:12 Labs: Laboratory Last Values WBC 4.0 K/mm3 (4.5-11.0) L 10/16/19 10:07 RBC 4.27 M/mm3 (3.65-5.03) 10/16/19 10:07 Hgb 13.4 gm/dl (11.8-15.2) 10/16/19 10:07 Hct 40.2 % (35.5-45.6) 10/16/19 10:07 MCV 94 fl (84-94) 10/16/19 10:07 MCH 31 pg (28-32) 10/16/19 10:07 MCHC 33 % (32-34) 10/16/19 10:07 RDW 15.5 % (13.2-15.2) H 10/16/19 10:07 Plt Count 223 K/mm3 (140-440) 10/16/19 10:07 Lymph % (Auto) 29.0 % (13.4-35.0) 10/16/19 10:07 Jerauld % (Auto) 5.8 % (0.0-7.3) 10/16/19 10:07 Eos % (Auto) 1.3 % (0.0-4.3) 10/16/19 10:07 Baso % (Auto) 1.4 % (0.0-1.8) 10/16/19 10:07 Lymph # 1.2 K/mm3 (1.2-5.4) 10/16/19 10:07 Jerauld # 0.2 K/mm3 (0.0-0.8) 10/16/19 10:07 Eos # 0.1 K/mm3 (0.0-0.4) 10/16/19 10:07 Baso # 0.1 K/mm3 (0.0-0.1) 10/16/19 10:07 Seg Neutrophils % 62.5 % (40.0-70.0) 10/16/19 10:07 Seg Neutrophils # 2.5 K/mm3 (1.8-7.7) 10/16/19 10:07 PT 15.5 Sec. (12.2-14.9) H 10/16/19 10:32 INR 1.21 (0.87-1.13) H 10/16/19 10:32 APTT 35.3 Sec. (24.2-36.6) 10/16/19 10:32 D-Dimer 516.76 ng/mlDDU (0-234) H 10/16/19 10:32 ABG pH 7.423 pH Units (7.350-7.450) 10/16/19 11:45 ABG pCO2 36.0 mm Hg 10/16/19 11:45 ABG pO2 55.9 mm Hg (80.0-90.0) L 10/16/19 11:45 ABG HCO3 23.0 mmol/L (20.0-26.0) 10/16/19 11:45 ABG O2 Saturation 89.2 % (95.0-99.0) L 10/16/19 11:45 ABG O2 Content 16.4 (0.0-44) 10/16/19 11:45 ABG Base Excess -1.0 mmol/L (-2.0-3.0) 10/16/19 11:45 ABG Hemoglobin 13.4 gm/dl (14.0-18.0) L 10/16/19 11:45 ABG Carboxyhemoglobin 2.1 % (0.0-5.0) 10/16/19 11:45 ABG Methemoglobin 0.5 % (0.0-1.5) 10/16/19 11:45 Oxyhemoglobin 86.8 % (95.0-99.0) L 10/16/19 11:45 FiO2 32 % 10/16/19 11:45 Sodium 135 mmol/L (137-145) L D 10/27/19 06:12 Potassium 3.7 mmol/L (3.6-5.0) D 10/27/19 06:12 Chloride 92.1 mmol/L (98-107) L 10/27/19 06:12 Carbon Dioxide 30 mmol/L (22-30) D 10/27/19 06:12 Anion Gap 17 mmol/L 10/27/19 06:12 BUN 32 mg/dL (9-20) H 10/27/19 06:12 Creatinine 1.0 mg/dL (0.8-1.5) 10/27/19 06:12 Estimated GFR > 60 ml/min 10/27/19 06:12 BUN/Creatinine Ratio 32 % 10/27/19 06:12 Glucose 125 mg/dL (75-100) H 10/27/19 06:12 Osmolality 280 Mosm/kg 10/24/19 10:58 Uric Acid 15.0 mg/dL (3.5-7.6) H 10/24/19 10:58 Calcium 8.5 mg/dL (8.4-10.2) 10/27/19 06:12 Magnesium 2.00 mg/dL (1.7-2.3) 10/16/19 16:50 Total Bilirubin 1.00 mg/dL (0.1-1.2) 10/16/19 10:32 Direct Bilirubin 0.4 mg/dL (0-0.2) H 10/16/19 10:32 Indirect Bilirubin 0.6 mg/dL 10/16/19 10:32 AST 28 units/L (5-40) 10/16/19 10:32 ALT 16 units/L (7-56) 10/16/19 10:32 Alkaline Phosphatase 86 units/L (35-129) 10/16/19 10:32 Total Creatine Kinase 405 units/L (55-170) H 10/16/19 10:32 CK-MB (CK-2) 3.2 ng/mL (0.0-4.0) 10/16/19 10:32 CK-MB (CK-2) Rel Index 0.7 (0-4) 10/16/19 10:32 Troponin T 0.017 ng/mL (0.00-0.029) 10/16/19 16:50 NT-Pro-B Natriuret Pep 4791 pg/mL (0-450) H 10/16/19 10:07 Total Protein 8.0 g/dL (6.3-8.2) 10/16/19 10:32 Albumin 3.7 g/dL (3.9-5) L 10/16/19 10:32 Albumin/Globulin Ratio 0.9 % 10/16/19 10:32 Triglycerides 72 mg/dL (2-149) 10/20/19 05:18 Cholesterol 82 mg/dL (50-199) 10/20/19 05:18 LDL Cholesterol Direct 46 mg/dL (50-130) L 10/20/19 05:18 HDL Cholesterol 28 mg/dL (40-59) L 10/20/19 05:18 Cholesterol/HDL Ratio 2.92 % 10/20/19 05:18 TSH 1.540 mlU/mL (0.270-4.200) 10/16/19 16:50 Free T4 1.23 ng/dL (0.76-1.46) 10/16/19 16:50 Urine Color Yellow (Yellow) 10/16/19 10:52 Urine Turbidity Clear (Clear) 10/16/19 10:52 Urine pH 5.0 (5.0-7.0) 10/16/19 10:52 Ur Specific [place] 1.015 (1.003-1.030) 10/16/19 10:52 Urine Protein 30 mg/dl mg/dL (Negative) 10/16/19 10:52 Urine Glucose (UA) Neg mg/dL (Negative) 10/16/19 10:52 Urine Ketones Neg mg/dL (Negative) 10/16/19 10:52 Urine Blood Neg (Negative) 10/16/19 10:52 Urine Nitrite Neg (Negative) 10/16/19 10:52 Urine Bilirubin Neg (Negative) 10/16/19 10:52 Urine Urobilinogen < 2.0 mg/dL (<2.0) 10/16/19 10:52 Ur Leukocyte Esterase Neg (Negative) 10/16/19 10:52 Urine WBC (Auto) < 1.0 /HPF (0.0-6.0) 10/16/19 10:52 Urine RBC (Auto) 2.0 /HPF (0.0-6.0) 10/16/19 10:52 Urine Mucus Few /HPF 10/16/19 10:52 Urine Creatinine 315.9 mg/dL (0.1-20.0) H 10/18/19 Unknown Urine Sodium 10 mmol/L 10/18/19 Unknown Urine Potassium 28.30 mmol/L 10/18/19 Unknown Urine Urea Nitrogen 394 10/18/19 Unknown Urine Opiates Screen Presumptive negative 10/16/19 10:52 Urine Methadone Screen Presumptive negative 10/16/19 10:52 Ur Barbiturates Screen Presumptive negative 10/16/19 10:52 Ur Phencyclidine Scrn Presumptive negative 10/16/19 10:52 Ur Amphetamines Screen Presumptive negative 10/16/19 10:52 U Benzodiazepines Scrn Presumptive negative 10/16/19 10:52 Urine Cocaine Screen Presumptive negative 10/16/19 10:52 U Marijuana (THC) Screen Presumptive positive 10/16/19 10:52 Drugs of Abuse Note Disclamer 10/16/19 10:52 Active Medications - Current Medications Current Medications: Generic Name Dose Route Start Last Admin Trade Name Freq PRN Reason Stop Dose Admin Acetaminophen 650 mg 10/16/19 13:45 10/17/19 21:57 Tylenol PO 650 mg Q4H PRN Administration Pain MILD(1-3)/Fever >100.5/PEACOCK Aspirin 81 mg 10/19/19 14:00 10/27/19 10:18 Baby Aspirin PO 81 mg QDAY CESAR Administration Atorvastatin Calcium 20 mg 10/19/19 22:00 10/26/19 22:38 Lipitor PO 20 mg QHS CESAR Administration Atovaquone 1,500 mg 10/19/19 15:00 10/27/19 10:21 Mepron PO Not Given QDAY CESAR Benzonatate 100 mg 10/17/19 06:00 10/27/19 14:26 Tessalon Perles PO Not Given Q8HR CESAR Doxepin HCl 10 mg 10/27/19 22:00 Sinequan PO QHS CESAR Furosemide 40 mg 10/26/19 12:00 10/27/19 10:18 Lasix PO 40 mg BID CESAR Administration Heparin Sodium (Porcine) 5,000 unit 10/16/19 22:00 10/27/19 10:24 Heparin SUB-Q Not Given Q12HR [facility] Dobutamine HCl/Dextrose 500 mg in 250 mls @ 12.54 mls/hr 10/23/19 11:00 10/27/19 08:06 Dobutrex Drip 500mg/D5w 250ml IV 5 mcg/kg/min TITR CESAR 12.54 mls/hr Administration 5 MCG/KG/MIN Lidocaine 1 each 10/17/19 15:00 10/27/19 14:23 Lidoderm 5% TD 1 each QDAY CESAR Administration Lorazepam 0.5 mg 10/17/19 02:36 10/26/19 22:39 Ativan PO 0.5 mg QHS CESAR Administration Lorazepam 1 mg 10/25/19 18:26 10/27/19 01:35 Ativan PO 1 mg Q6H PRN Administration Agitation Metoprolol Succinate 25 mg 10/17/19 14:00 10/27/19 10:22 Metoprolol Xl PO 25 mg QDAY CESAR Administration Nicotine 14 mg 10/26/19 22:00 10/26/19 22:39 Habitrol TD 14 mg QDAY@2200 CESAR Administration Ondansetron HCl 4 mg 10/16/19 13:45 10/21/19 17:36 Zofran IV 4 mg Q8H PRN Administration Nausea And Vomiting Oxycodone/Acetaminophen 1 tab 10/18/19 00:00 10/27/19 10:18 Percocet 5/325 PO 1 tab Q6H PRN Administration Pain, Moderate (4-6) Pseudoephedrine/Acetam/Chlorphenir 20 ml 10/18/19 09:53 10/24/19 11:36 Robitussin Ac PO 20 ml Q4H PRN Administration Cough Risperidone 0.25 mg 10/27/19 12:00 10/27/19 12:12 Risperdal PO 0.25 mg BID CESAR Administration Sertraline HCl 25 mg 10/27/19 12:00 10/27/19 12:12 Zoloft PO 25 mg QDAY CESAR Administration Sodium Chloride 10 ml 10/16/19 22:00 10/27/19 10:19 Sodium Chloride Flush Syringe 10 Ml IV 10 ml BID CESAR Administration Sodium Chloride 10 ml 10/16/19 13:45 Sodium Chloride Flush Syringe 10 Ml IV PRN PRN LINE FLUSH Ticagrelor 90 mg 10/19/19 14:00 10/27/19 10:18 Brilinta PO 90 mg BID CESAR Administration Nutrition/Malnutrition Assess - Dietary Evaluation Nutrition/Malnutrition Findings: Nutrition Notes Start: 10/23/19 12:07 Freq: Status: Active Protocol: Document 10/26/19 12:45 LM (Rec: 10/26/19 12:50 LM [id number]) Nutrition Notes Initial or Follow up Reassessment Current Diagnosis Coronary Artery Disease, Hypertension,Heart Failure, Respiratory Failure, Hyperlipidemia Other Pertinent Diagnosis HIV, acidosis, SOB Current Diet Cardiac Labs/Tests Na 126 K 6.1 BUN 52 Cr 1.7 BG 173 Pertinent Medications Reviewed Height 6 ft 1 in Weight 83 kg [place] Body Weight (kg) 83.63 BMI 24.1 Weight Status Appropriate Subjective/Other Information Pt stated he only ate some eggs this AM. Pt stated the Ensure is ok and will drink them but Ensure was unopened this AM. Percent of energy/protein needs met: 23%/31% Burn Absent Trauma Absent GI Symptoms None Current % PO Poor (25-49%) Minimum of two criteria No Energy Intake (severe) < or equal to 50% Estimated Energy Requirement > or equal to 5 days #1 Nutrition Diagnosis Inadequate oral intake Diagnosis Progress(for reassessment Continues documentation) Is patient on ventilator? No Is Patient Ambulatory and/or Out of Bed Yes REE-([facility]-ambulatory/OOB) [ 2306.044 [id number]] Calculation Used for Recommendations [facility] Additional Notes PRO needs: 66-83g/day (0.8-1g/ kg) Fluid: Per 1500ml Nutrition Intervention Change Diet Order: Cardiac Add Supplement/Snack (indicate name/kcal Ensure Enlive once a day /protein ) Provides kCal: 350 Provides Protein (gm) 20 Goal #1 Pt meet >75% of kcal/PRO needs Anticipated Discharge Needs: Cardiac and ONS Follow-Up By: 10/28/19 Additional Comments F/U for PO/ONS intakes
--- NOTE | 2019-10-27 18:50 | Discharge Summary ---
Providers - Providers Date of Admission: 10/16/19 13:45 Attending physician: DARWIN WHIPPLE 10/16/19 15:39 Consult to Physician [CONS] Routine Comment: Consulting Provider: LORETTA MAE Physician Instructions: Reason For Exam: CHF EF10% 10/18/19 12:01 Consult to Physician [CONS] Routine Comment: Consulting Provider: SU GIBSON Physician Instructions: Reason For Exam: jackelin, chf 10/19/19 03:21 Consult to Physician [CONS] Routine Comment: Consulting Provider: MORGAN JACKMAN Physician Instructions: Reason For Exam: HIV and bloody sputum 10/19/19 15:27 Consult to Physician [CONS] Routine Comment: Consulting Provider: JONH BADILLO Physician Instructions: Reason For Exam: pna? 10/26/19 13:24 psychiatry consult [Consult to Mental Health] [CONS] Routine Reason For Exam: pt brief episodes of depression and panic attacks Primary care physician: WE[employer]NESS TRAINER Hospitalization Condition: Stable Disposition: DC-07 LEFT AGAINST MED ADVICE Exam - Constitutional Vitals: Temp Pulse Resp BP Pulse Ox 98.0 F 105 H 18 108/71 92 10/27/19 08:13 10/27/19 13:09 10/27/19 13:09 10/27/19 13:09 10/27/19 13:09 Plan Follow up with: PRIMARY CARE, [Primary Care Provider] - 3-5 Days Forms: AMA Form Prescriptions: Albuterol INH(or & Nicu Only) [ProAir HFA Inhaler] 2 puff IH QID PRN #8.5 gram PRN Reason: Shortness Of Breath risperiDONE [RisperDAL] 0.25 mg PO BID #60 tab Doxepin [SINEquan] 10 mg PO QHS #30 capsule Metoprolol Succinate [Toprol Xl] 25 mg PO DAILY #30 tab.er.24h Torsemide 100 mg PO BID #60 Sertraline [Zoloft] 25 mg PO QDAY #30 tab
[2019-10-27] MEDS ORDERED: DOXEPIN 10 MG CAP PO SCH (22:00)
== END 2019-10-27 18:00 | disposition left against medical advice (07) | DRG 291 ==
LOC: ED 09:01 → 3A 13:45 → 4A 10-19 17:11
PROVIDERS: ADMIT Internal Medicine; ATTEND Internal Medicine
PROC: 4A033R1 Measurement of Arterial Saturation, Peripheral, Percutaneous Approach (ICD-10-PCS; principal; 2019-10-16)
PROC: 5A09357 Assistance with Respiratory Ventilation, Less than 24 Consecutive Hours, Continuous Positive Airway Pressure (ICD-10-PCS; 2019-10-21)
PROC: 5A09357 Assistance with Respiratory Ventilation, Less than 24 Consecutive Hours, Continuous Positive Airway Pressure (ICD-10-PCS; 2019-10-22)
DX: I13.0 Hypertensive heart and chronic kidney disease with heart failure and stage 1 through stage 4 chronic kidney disease, or unspecified chronic kidney disease (principal); N17.0 Acute kidney failure with tubular necrosis; I50.23 Acute on chronic systolic (congestive) heart failure; J96.21 Acute and chronic respiratory failure with hypoxia; E87.2 Acidosis; B20 Human immunodeficiency virus [HIV] disease; E87.1 Hypo-osmolality and hyponatremia; R04.2 Hemoptysis; I42.8 Other cardiomyopathies; I25.10 Atherosclerotic heart disease of native coronary artery without angina pectoris; E78.2 Mixed hyperlipidemia; E87.5 Hyperkalemia; I44.7 Left bundle-branch block, unspecified; F41.8 Other specified anxiety disorders; F19.10 Other psychoactive substance abuse, uncomplicated; F17.200 Nicotine dependence, unspecified, uncomplicated; F14.10 Cocaine abuse, uncomplicated; F12.10 Cannabis abuse, uncomplicated; D72.819 Decreased white blood cell count, unspecified; Z95.1 Presence of aortocoronary bypass graft; Z82.49 Family history of ischemic heart disease and other diseases of the circulatory system; Z88.1 Allergy status to other antibiotic agents; Z91.14 Patient's other noncompliance with medication regimen; Z90.89 Acquired absence of other organs
CPT/HCPCS: 36415; 71045; 71046; 71275; 76770; 78582; 80048; 80061; 80076; 80307; 81001; 82550; 82553; 82570; 82803; 83735; 83880; 83930; 84133; 84295; 84300; 84439; 84443; 84484; 84520; 84550; 85025; 85379; 85610; 85730; 93005; 93010; 93306; 93970; 94660; 94760; 96374; G0378; A9270-GY; A9540; A9558; J0610; J1250; J1644; J1940; J2270; J2405; J3480; J7040; Q9967